=== PATIENT | female | born 1940 | race Caucasian/White ===

== ENCOUNTER → 2023-01-08 04:19 | Outpatient (CLI) | payer MEDICARE, SELFPAY ==
[2023-01-08 08:09] LABS: Adenovirus F 40/41, stool Not Detected (NotDetected); Astrovirus Not Detected (NotDetected); Campylobacter Not Detected (NotDetected); Cryptosporidium Not Detected (NotDetected); Cyclospora Cayetanesis Not Detected (NotDetected); Entamoeba histolytica Not Detected (NotDetected); Enteroaggregative E coli Not Detected (NotDetected); Enteropathogenic E coli Not Detected (NotDetected); Enterotoxigenic E coli Not Detected (NotDetected); Giardia lamblia Not Detected (NotDetected); Norovirus Not Detected (NotDetected); Plesimonas Shigalloides, PCR Not Detected (NotDetected); Rotavirus A Not Detected (NotDetected); Salmonella, PCR Not Detected (NotDetected); Sapovirus Not Detected (NotDetected); Shiga-like toxin E coli Not Detected (NotDetected); Shigella Enterovasive E coli Not Detected (NotDetected); Vibrio Cholerae Not Detected (NotDetected); Vibrio, PCR Not Detected (NotDetected); Yersinia Entercolitica, PCR Not Detected (NotDetected)
[2023-01-08 14:26] LABS: Clostridium Difficile A/B, PCR Detected (NotDetected)
== END ==
PROVIDERS: PCP Emergency Medicine; Visit Provider Emergency Medicine
DX: K59.1 Functional diarrhea (principal); A04.72 Enterocolitis due to Clostridium difficile, not specified as recurrent
CPT/HCPCS: 87506

== ENCOUNTER 2023-01-12 02:56 | Inpatient (IN) | payer MEDICARE, SELFPAY ==
[2023-01-12] VITALS (22 sets, daily range): BP systolic 105–152; BP diastolic 53–82; PULSE 76–103; RESP 14–24; TEMP 36.6–43; O2SAT 90–100; BMI 29.2; BMI 27.1
--- NOTE | 2023-01-12 | XR_ITS ---
PROCEDURE INFORMATION: Exam: XR Left Femur Exam date and time: 01/12/2023 12:00 AM Age: 82 years old Clinical indication: Device placement; Joint replacement hardware; Additional info: Lt femur in or TECHNIQUE: Imaging protocol: Radiologic exam of the left femur. Views: 2 views. COMPARISON: No relevant prior studies available. FINDINGS: Tubes, catheters and devices: ORIF of left intratrochanteric fracture with cannulated screw and locked IM nail of the left femur in place. Bones/joints: Unremarkable. No acute fracture. Soft tissues: Unremarkable. IMPRESSION: ORIF of left intratrochanteric fracture with cannulated screw and locked IM nail of the left femur in place.
--- NOTE | 2023-01-12 03:13 | XR_ITS ---
PROCEDURE INFORMATION: Exam: XR Chest Exam date and time: 01/12/2023 3:57 AM Age: 82 years old Clinical indication: Injury or trauma; Fall; Additional info: Fall from standing TECHNIQUE: Imaging protocol: Radiologic exam of the chest. Views: 1 view. COMPARISON: CT CHEST WO CON 01/12/2023 3:51 AM FINDINGS: Lungs: Well aerated with no evidence of consolidations, interstitial patterns or pulmonary nodules. Pleural spaces: No evidence of effusions or pneumothorax. Heart/Mediastinum: The cardiomediastinal silhouette is normal in size and configuration. There is no evidence of cardiomegaly. Bones/joints: Intact. IMPRESSION: No radiographic evidence of an acute pulmonary process.
--- NOTE | 2023-01-12 03:13 | XR_ITS ---
PROCEDURE INFORMATION: Exam: XR Left Hip Exam date and time: 01/12/2023 3:57 AM Age: 82 years old Clinical indication: Injury or trauma; Fall; Additional info: Fall from standing TECHNIQUE: Imaging protocol: Radiologic exam of the left hip. Views: 2 or 3 views hip with pelvis when performed. COMPARISON: CT ABDOMEN PELVIS WO CON 01/12/2023 3:54 AM FINDINGS: Bones/joints: Acute comminuted intertrochanteric fracture the left femur. No evidence of dislocation. Status post right total arthroplasty. The prosthetic elements are intact and anatomic alignment. Soft tissues: Unremarkable. IMPRESSION: 1. Acute comminuted intertrochanteric fracture the left femur. No evidence of dislocation. 2. Status post right total hip arthroplasty. The prosthetic elements are intact and anatomic alignment.
--- NOTE | 2023-01-12 03:18 | XR_ITS ---
PROCEDURE INFORMATION: Exam: XR Right Femur Exam date and time: 01/12/2023 3:57 AM Age: 82 years old Clinical indication: Injury or trauma; Fall; Additional info: Fall, pain TECHNIQUE: Imaging protocol: Radiologic exam of the right femur. Views: 2 views. COMPARISON: CT ABDOMEN PELVIS WO CON 01/12/2023 3:54 AM FINDINGS: Bones/joints: Status post right total arthroplasty. The prosthetic elements are intact and anatomic alignment. The knee joint is preserved. Soft tissues: Unremarkable. IMPRESSION: Status post right total hip arthroplasty. The prosthetic elements are intact and anatomic alignment.
--- NOTE | 2023-01-12 03:18 | CT_ITS ---
PROCEDURE INFORMATION: Exam: CT Abdomen And Pelvis Without Contrast Exam date and time: 01/12/2023 3:54 AM Age: 82 years old Clinical indication: Abdominal pain; Patient HX: Fall left hip pain; Additional info: Fall, back pain, hip pain, dementia TECHNIQUE: Imaging protocol: Computed tomography of the abdomen and pelvis without contrast. Radiation optimization: All CT scans at this facility use at least one of these dose optimization techniques: automated exposure control; mA and/or kV adjustment per patient size (includes targeted exams where dose is matched to clinical indication); or iterative reconstruction. REPORTING DATA: Count of CT and Cardiac NM exams in prior 12 months: This patient has received 0 known CTs and 0 known cardiac nuclear medicine studies in the 12 months prior to the current study. COMPARISON: CT CHEST WO CON 01/12/2023 3:51 AM FINDINGS: Lungs: Lung bases are free of consolidation effusions pneumothorax or pulmonary nodules. Liver: The liver is of normal size with no evidence of intrahepatic biliary dilatation or focal lesions. Gallbladder and bile ducts: There is no evidence of cholelithiasis gallbladder wall thickening or pericholecystic fluid. No ductal dilation identified. Pancreas: No focal lesions or inflammatory changes. No evidence of ductal dilatation, peripancreatic fluid or cystic collections identified. Spleen: Intact with no focal lesions. No splenomegaly. Adrenal glands: Normal. No mass. Kidneys and ureters: No focal lesions, hydronephrosis or nephrolithiasis. The ureters follow a normal course into the [place] bladder without dilatation calculi with displacement. Stomach and bowel: Air and stool noted scattered throughout nondilated bowel loops. Colonic diverticulosis There is no evidence of bowel wall thickening or inflammatory changes. Appendix: The appendix is visualized. No evidence of appendicitis. Intraperitoneal space: Unremarkable. No free air. No significant fluid collection. Vasculature: Unremarkable. No abdominal aortic aneurysm. Lymph nodes: Unremarkable. No enlarged lymph nodes. Urinary bladder: Unremarkable as visualized. Reproductive: Uterus unremarkable as visualized. 5.2 x 4 cm round soft tissue lesion right posterior adnexa. Bones/joints: Acute comminuted intertrochanteric fracture the left femur. No evidence of dislocation. Status post right total arthroplasty. The prosthetic elements are intact and anatomic alignment. Soft tissues: Unremarkable. IMPRESSION: 1. Acute comminuted intertrochanteric fracture the left femur. No evidence of dislocation. 2. 5.2 x 4 cm round soft tissue lesion right posterior pelvic adnexa.
--- NOTE | 2023-01-12 03:18 | XR_ITS ---
PROCEDURE INFORMATION: Exam: XR Left Femur Exam date and time: 01/12/2023 3:57 AM Age: 82 years old Clinical indication: Injury or trauma; Fall; Additional info: Pain TECHNIQUE: Imaging protocol: Radiologic exam of the left femur. Views: 2 views. COMPARISON: CT ABDOMEN PELVIS WO CON 01/12/2023 3:54 AM FINDINGS: Bones/joints: Acute comminuted intertrochanteric fracture the left femur. No evidence of dislocation. Severe loss of left knee joint space associated with subchondral sclerosis and osteophyte formation compatible with severe osteoarthritis. Soft tissues: Unremarkable. IMPRESSION: 1. Acute comminuted intertrochanteric fracture the left femur. No evidence of dislocation. 2. Severe loss of left knee joint space associated with subchondral sclerosis and osteophyte formation compatible with severe osteoarthritis.
--- NOTE | 2023-01-12 03:18 | CT_ITS ---
PROCEDURE INFORMATION: Exam: CT Chest Without Contrast; Diagnostic Exam date and time: 01/12/2023 3:51 AM Age: 82 years old Clinical indication: Injury or trauma; Fall; Additional info: Fall, back pain, hip pain, dementia TECHNIQUE: Imaging protocol: Diagnostic computed tomography of the chest without contrast. Radiation optimization: All CT scans at this facility use at least one of these dose optimization techniques: automated exposure control; mA and/or kV adjustment per patient size (includes targeted exams where dose is matched to clinical indication); or iterative reconstruction. REPORTING DATA: Count of CT and Cardiac NM exams in prior 12 months: This patient has received 0 known CTs and 0 known cardiac nuclear medicine studies in the 12 months prior to the current study. COMPARISON: CT THORACIC SPINE WO CON 01/12/2023 3:44 AM FINDINGS: Lungs: Patchy areas of ground-glass opacity. No consolidation. No masses. Pleural spaces: Unremarkable. No pneumothorax. No pleural effusion. Heart: Small pericardial effusion. No cardiomegaly. Coronary artery calcifications. Lymph nodes: Unremarkable. No enlarged lymph nodes. Vasculature: Unremarkable. No aortic aneurysm. Bones/joints: Unremarkable. No acute fracture. Soft tissues: Unremarkable. IMPRESSION: 1. Patchy areas of ground-glass opacity. No consolidation. 2. Small pericardial effusion.Coronary artery calcifications.
--- NOTE | 2023-01-12 03:19 | CT_ITS ---
PROCEDURE INFORMATION: Exam: CT Thoracic Spine Without Contrast Exam date and time: 01/12/2023 3:44 AM Age: 82 years old Clinical indication: Injury or trauma; Fall; Additional info: Fall, back pain, hip pain, dementia TECHNIQUE: Imaging protocol: Computed tomography of the thoracic spine without contrast. Radiation optimization: All CT scans at this facility use at least one of these dose optimization techniques: automated exposure control; mA and/or kV adjustment per patient size (includes targeted exams where dose is matched to clinical indication); or iterative reconstruction. REPORTING DATA: Count of CT and Cardiac NM exams in prior 12 months: This patient has received 0 known CTs and 0 known cardiac nuclear medicine studies in the 12 months prior to the current study. COMPARISON: CT CERVICAL SPINE WO CON 01/12/2023 3:42 AM FINDINGS: Bones/joints: No acute fracture. Normal alignment. No significant disc bulge or herniation. No severe spinal canal stenosis. No significant neural foraminal narrowing. Soft tissues: Unremarkable. IMPRESSION: No acute fractures or listhesis.
--- NOTE | 2023-01-12 03:19 | CT_ITS ---
PROCEDURE INFORMATION: Exam: CT Head Without Contrast Exam date and time: 01/12/2023 3:40 AM Age: 82 years old Clinical indication: Injury or trauma; Fall; Additional info: Fall, back pain, hip pain, dementia TECHNIQUE: Imaging protocol: Computed tomography of the head without contrast. Radiation optimization: All CT scans at this facility use at least one of these dose optimization techniques: automated exposure control; mA and/or kV adjustment per patient size (includes targeted exams where dose is matched to clinical indication); or iterative reconstruction. REPORTING DATA: Count of CT and Cardiac NM exams in prior 12 months: This patient has received 0 known CTs and 0 known cardiac nuclear medicine studies in the 12 months prior to the current study. COMPARISON: No relevant prior studies available. FINDINGS: Brain: Moderately advanced chronic microvascular ischemic disease without acute intraparenchymal hemorrhage and no obvious acute ischemic stroke. No intra-or extra-axial fluid collection, no supra-or infratentorial mass, no mass effect or midline shift. Cerebral ventricles: Ventriculomegaly with mildly dilated/prominent sulci and basal cisterns suspicious for chronic communicating/normal pressure hydrocephalus. Paranasal sinuses: No significant mucoperiosteal thickening in the visualized paranasal sinuses. Mastoid air cells: No mastoid effusion. Bones/joints: Visualized skull bones are grossly normal. Advanced chronic degenerative changes-internal derangement in the temporomandibular joints. Soft tissues: NA IMPRESSION: 1. Moderately advanced chronic microvascular disease and generalized atrophy without acute intracranial abnormality. 2. No evidence of acute hemorrhage, mass lesion or obvious acute ischemic infarction.
--- NOTE | 2023-01-12 03:19 | CT_ITS ---
PROCEDURE INFORMATION: Exam: CT Lumbar Spine Without Contrast Exam date and time: 01/12/2023 3:46 AM Age: 82 years old Clinical indication: Injury or trauma; Fall; Additional info: Fall, back pain, hip pain, dementia TECHNIQUE: Imaging protocol: Computed tomography of the lumbar spine without contrast. Radiation optimization: All CT scans at this facility use at least one of these dose optimization techniques: automated exposure control; mA and/or kV adjustment per patient size (includes targeted exams where dose is matched to clinical indication); or iterative reconstruction. REPORTING DATA: Count of CT and Cardiac NM exams in prior 12 months: This patient has received 0 known CTs and 0 known cardiac nuclear medicine studies in the 12 months prior to the current study. COMPARISON: CT THORACIC SPINE WO CON 01/12/2023 3:44 AM FINDINGS: Bones/joints: No acute fracture. Normal alignment. Severe disc desiccation at L4-L5 and L5-S1. No significant disc herniation. No severe spinal canal stenosis. No significant neural foraminal narrowing. Soft tissues: Unremarkable. IMPRESSION: 1. No acute fractures or listhesis. 2. Degenerative changes.
--- NOTE | 2023-01-12 03:19 | CT_ITS ---
PROCEDURE INFORMATION: Exam: CT Cervical Spine Without Contrast Exam date and time: 01/12/2023 3:42 AM Age: 82 years old Clinical indication: Injury or trauma; Fall; Additional info: Fall, back pain, hip pain, dementia TECHNIQUE: Imaging protocol: Computed tomography of the cervical spine without contrast. Radiation optimization: All CT scans at this facility use at least one of these dose optimization techniques: automated exposure control; mA and/or kV adjustment per patient size (includes targeted exams where dose is matched to clinical indication); or iterative reconstruction. REPORTING DATA: Count of CT and Cardiac NM exams in prior 12 months: This patient has received 0 known CTs and 0 known cardiac nuclear medicine studies in the 12 months prior to the current study. COMPARISON: CT HEAD/BRAIN WO CON 01/12/2023 3:40 AM FINDINGS: Bones/joints: Loss of normal curvature of the spine, alignment of the vertebral bodies is grossly normal. No evidence of acute compression fracture or deformity in the cervical spine. No acute fracture involving the vertebral bodies or their posterior elements. Facet joints are normally aligned without facetal dislocation or subluxation. No acute fracture of the dens, lateral C1-C2 articulation, atlantooccipital joints and central atlantodental joint are unremarkable. Discs/Spinal canal/Neural foramina: Moderately advanced chronic degenerative changes in the visualized cervical spine. Lungs: Scarring and pleural thickening in the lung apices. Soft tissues: Pre-and paravertebral soft tissues are grossly normal. Chronic degenerative changes-internal derangement in the temporomandibular joints. Atherosclerotic calcification of the carotid arteries and aortic arch. IMPRESSION: Chronic degenerative changes without an acute cervical spine injury or abnormality.
[2023-01-12 03:26] LABS: Basophils % 0.3 % (0.1-2.0); Eosinophils # 0.2 K/mm3 (0.0-0.4); Eosinophils % 2.4 % (0.1-12.0); Hemoglobin 11.5 g/dL (12.2-16.2); Lymphocytes # 3.1 K/mm3 (0.7-4.5); Mean Corpuscular Hemoglobin 29.1 pg (27.0-31.2); Mean Corpuscular Volume 93.9 fl (81-99); Monocytes # 0.5 K/mm3 (0.1-1.0); Monocytes % 5.1 % (1.7-9.3); Neutrophils # 5.7 K/mm3 (1.8-7.8); Neutrophils % 60.2 % (37.0-80.0); Platelet Count 360 K/mm3 (142-424); Red Blood Count 3.94 M/mm3 (4.20-5.40); Red Cell Distribution Width 16.2 % (11.5-17.5); White Blood Count 9.5 K/mm3 (4.8-10.8)
[2023-01-12 03:28] LABS: Chloride 104 mmol/L (98-107); Potassium 3.3 mmoL/L (3.5-5.1); Sodium 140 mmol/L (136-145)
[2023-01-12 03:30] LABS: Alanine Aminotransferase 20 U/L (12-78); Aspartate Amino Transferase 30 U/L (14-36); Blood Urea Nitrogen 15 mg/dl (7-17); Creatinine Clearance Estimated 50 mL/min (50-200); Estimated Glomerular Filt Rate 69 ml/min (>60); GFR (African American) 83 ML/MIN (>60)
--- NOTE | 2023-01-12 03:30 | PC.NURSE ---
patient is soiled. Removed clothes and turned and repositioned utilizing pillows and blankets.
[2023-01-12 03:31] LABS: Albumin/Globulin Ratio 1.1 (1.1-1.8); Alkaline Phosphatase 99 U/L (38-126); Anion Gap 12.3 mEq/L (5-15); Bilirubin,Total 0.6 mg/dl (0.2-1.3); Calcium 9.5 mg/dl (8.4-10.2); Carbon Dioxide 27 mmol/L (22.0-30.0); Globulin 3.7 g/dL (1.3-3.2); Glucose 114 mg/dl (74-100); Total Protein,Serum 7.7 g/dl (6.3-8.2)
--- NOTE | 2023-01-12 03:41 | HMH.EDGENADL ---
Discharge Plan Disposition Chief Complaint: Fall Prescriptions Prescriptions: No Action alprazolam [Xanax] 0.5 mg tablet 0.5 mg PO BID PRN (Reason: anxiety) 90 Days Qty: 180 0RF Referrals Follow up/Referrals: Dominic Gilbert MD [Primary Care Provider] - See instructions Clinical Impressions Clinical Impression: C. difficile diarrhea, UTI (urinary tract infection), Dementia Closed intertrochanteric fracture Qualifiers: Encounter type: initial encounter Fracture alignment: nondisplaced Laterality: left Qualified Code(s): S72.145A - Nondisplaced intertrochanteric fracture of left femur, initial encounter for closed fracture Discharge ED Provider: Salvatore Cleary General Adult HPI General Chief complaint: Fall Stated complaint: FALL Time Seen by Provider: 01/12/23 03:01 Mode of Arrival: EMS Source of Information: Patient Limitations: No Limitations Description of Symptoms (Recalled from ER Triage Doc. by RN): 82 yo female fall [facility] in prison. left hip pain complaints.vss. a&ox1 at baseline. History of Present Illness HPI narrative: 83-year-old female history of Alzheimer's dementia presents after unwitnessed fall at nursing facility. Circumstances of fall are unclear. Patient reports multiple different things. She is currently being treated for UTI and C. difficile at the nursing facility. She reports back pain and hip pain, denies hitting her head, denies loss of consciousness. Patient is alert and interactive and partially oriented. Unable to provide significant medical history or history of presenting events. Related Data Previous Rx's Medication Instructions Recorded alprazolam 0.5 mg tablet (Xanax) 0.5 mg PO BID PRN anxiety 90 days 01/06/23 #180 tabs Allergies Allergy/AdvReac Type Severity Reaction Status Date / Time Opioids - Morphine Analogues Allergy Severe Angioedema Verified 01/08/23 23:29 [facility] Disclaimer: The information contained in this section may have been updated after the patient was seen, as this information can be updated by other users. Social History (Updated 01/08/23 @ 22:54 by Ren Chiang APRN) Smoking Status: Unknown if ever smoked alcohol intake: former current occupational status: retired Travel in the last 8 weeks: None household members: family housing: house marital status: education level: high school Hx Recent Travel: No sexually active: No ROS Obtained: Yes All systems reviewed & no additional complaints except as documented Physical Exam General General appearance: alert and in no apparent distress Head Head exam: atraumatic and normocephalic Eye Eye exam: Present normal appearance, PERRL and EOMI ENT ENT exam: Present normal oropharynx and normal external ear exam Neck Neck exam: Present normal inspection and full ROM Chest Chest inspection: Present normal inspection and symmetric chest wall rise; Absent tenderness Respiratory Respiratory exam: Present normal lung sounds bilaterally; Absent respiratory distress Cardiovascular Cardiovascular exam: Present regular rate and normal rhythm Abdominal Exam Abdominal exam: Present soft; Absent distention, tenderness or guarding Extremities Exam Extremities exam: Present other (Pelvic tenderness, tenderness to the left hip and thigh, bilateral upper extremities atraumatic.); Absent edema or joint swelling Back Exam Back exam: Present normal inspection and tenderness (Thoracic/lumbar. C-spine nontender.) Neurological Exam Neurological exam: Present alert and other (Oriented x1, reportedly baseline); Absent motor sensory deficit Psychiatric Psychiatric exam: Present normal affect and normal mood Skin Skin exam: Present warm, dry and normal color Lymphatic Lymphatic Findings: no adenopathy Medical Decision Making Medical Records Medical records reviewed: Yes I reviewed the patient's medical records. Aman Inquiry Pt receiving controlled substance: No Aman garcia
--- NOTE | 2023-01-12 04:30 | PC.NURSE ---
turned and repositioned per staff, elevated injured leg slightly on a pillow for comfort. pt tolerated well. perianal care provided.
--- NOTE | 2023-01-12 05:45 | PC.NURSE ---
waiting on ortho to come oncall in order to contact re: staying as an inpatient. properties supervisor is aware of plan.
--- NOTE | 2023-01-12 06:33 | PC.NURSE ---
patient resting comfortably at this time with eyes closed. resp r/u. vss. no complaints offered.
[2023-01-12 08:11] LABS: Microscopic, Urine URINE MICROSCOPIC (MICROSCOPIC)
[2023-01-12 08:14] LABS: Appearance,Urine SL CLOUDY (Clear); Bilirubin,Urine Negative (Negative); Blood, Urine 2+ (Negative); Color,Urine YELLOW (Yellow); Glucose,Urine (UA) Negative (Negative); Ketones,Urine Negative (Negative); Leukocyte Esterase,Urine 2+ (Negative); Nitrate,Urine POSITIVE (Negative); PH,Urine 5.5 (5.0-8.5); Protein,Urine 1+ (Negative); Urobilinogen,Urine 0.2 EU/dl (0.2)
[2023-01-12 08:32] LABS: Bacteria,Urine 1+ /lpf; Squamous Epithelial Cell,Urine Occasional #/hpf (0-5)
--- NOTE | 2023-01-12 08:32 | PC.NURSE ---
report called to elina bustillos
--- NOTE | 2023-01-12 09:12 | P.CONPHA_ITS ---
Pharmacy Intervention Comments: Patient's home medications were verified using list from patient's half-way. -Jose Manrique, PharmD student
--- NOTE | 2023-01-12 09:12 | HMH.PHAINT1 ---
Pharmacy Intervention Comments: Patient's home medications were verified using list from [facility]. -Jose Manrique, PharmD student
--- NOTE | 2023-01-12 12:10 | PC.NURSE ---
courtesy tech note: pt is lying in bed resting. call light is within reach and bed alarm is set.
--- NOTE | 2023-01-12 13:28 | EXP.HP ---
History of Present Illness *Admission Date: 01/12/23 *Reason for visit:: fall *History of present illness: Ms. Wisdom is an 82-year-old female who lives in a long-term. She fell at her long-term this morning while ambulating with her walker. Had pain when they tried to get her up. Was brought to the ER for further evaluation. Denies any loss of consciousness, chest pain, shortness of breath, nausea or vomiting. Is currently being treated for a UTI and C. difficile. On evaluation in the ER, patient found to have a comminuted left intertrochanteric fracture. Orthopedics was consulted. Patient admitted for further management and likely surgical intervention this afternoon. On arrival to the floor, patient is hemodynamically stable. Afebrile. On room air. States she has pain in her hip and wants to be able to walk again. She is interested in proceeding with surgery. She does have a history of pulm and. Is on occasion for hypertension. No history of kidney disease or diabetes. Metabolic equivalents are difficult to quantify due to patient's mobility with a walker. She has been on oral vancomycin for C. difficile infection for 3 days and oral antibiotics for UTI for [address] [facility] Disclaimer: The information contained in this section may have been updated after the patient was seen, as this information can be updated by other users. Medical History (Updated 01/12/23 @ 13:44 by Antonino Parnell MD) No significant past medical history Surgical History (Updated 01/12/23 @ 13:43 by Antonino Parnell MD) History of right hip replacement History of total right hip replacement Social History Smoking Status: Unknown if ever smoked alcohol intake: former current occupational status: retired Travel in the last 8 weeks: None household members: family housing: house marital status: education level: high school Hx Recent Travel: No sexually active: No Meds Home Medications and Allergies Home Medications Medication Instructions Recorded Confirmed Type alprazolam 0.5 mg tablet (Xanax) 0.5 mg PO BID PRN anxiety 90 days 01/06/23 01/12/23 Rx #180 tabs Lactobacil.acidophilus-Bifido.animalis 1 cap PO DAILY probiotic 01/12/23 01/12/23 History 5 billion cell sprinkle capsule (Probiotic) acetaminophen 500 mg tablet 500 mg PO Q6H PRN Pain 01/12/23 01/12/23 History amoxicillin 500 mg-potassium 1 tab PO BID infection 01/12/23 01/12/23 History clavulanate 125 mg tablet (Augmentin) calcium carbonate 500 mg calcium 500 mg PO DAILY Supplement 01/12/23 01/12/23 History (1,250 mg) tablet ondansetron HCl 4 mg tablet 4 mg PO Q6H PRN Nausea 01/12/23 01/12/23 History quetiapine 50 mg tablet (Seroquel) 150 mg PO HS dementia 01/12/23 01/12/23 History sennosides 8.6 mg tablet (senna) 8.6 mg PO DAILY PRN Constipation 01/12/23 01/12/23 History vancomycin 125 mg/2.5 mL oral 125 mg PO QID C. Diff 01/12/23 01/12/23 History syringe (FOR ORAL USE ONLY) venlafaxine 37.5 mg tablet 37.5 mg PO DAILY Depression 01/12/23 01/12/23 History New Prescriptions to Start Prescriptions: Allergies Allergy/AdvReac Type Severity Reaction Status Date / Time Opioids - Morphine Analogues Allergy Severe Angioedema Verified 01/08/23 23:29 Exam Data for Last 24 hours Vital signs and Labs for Last 24 Hours: Temp Pulse Resp BP Pulse Ox O2 Del Method 98.3 F 81 17 116/69 95 Room Air 01/12/23 08:59 01/12/23 08:59 01/12/23 08:59 01/12/23 08:59 01/12/23 08:59 01/12/23 13:00 Laboratory Results - last 24 hr 01/12/23 03:15: WBC 9.5, RBC 3.94 L, Hgb 11.5 L, Hct 37.0, MCV 93.9, MCH 29.1, MCHC 31.0 L, RDW 16.2, Plt Count 360, MPV 8.0, Neut % (Auto) 60.2, Lymph % (Auto) 32.0, [place] % (Auto) 5.1, Eos % (Auto) 2.4, Baso % (Auto) 0.3, Neut # (Auto) 5.7, Lymph # (Auto) 3.1, [place] # (Auto) 0.5, Eos # (Auto) 0.2, Baso # (Auto) 0.0, Sodium 140, Potassium 3.3 L
--- NOTE | 2023-01-12 13:57 | ECG_ITS ---
APPROVED REPORT Exam: Resting ECG HR:73 bpm ECG Measurements Heart Rate 73 AXES UT 146 P 65 QRSd 87 QRS 11 QT 444 T 46 QTc 469 Conclusion SINUS RHYTHM Normal ECG UNCONFIRMED REPORT Electronically signed by : Nima Bright MD 01/12/2023 19:48:42
--- NOTE | 2023-01-12 16:51 | PC.NURSE ---
pt very pleasant, alert to self only. pt c/o pain once but pt stated only when i move . treated pain per mar. son was at bedside around noon, stated he would like to speak with the surgeon. casey in place draining properly. yusuf watkins, npo at this time. pt has no needs at this time.
--- NOTE | 2023-01-12 17:31 | P.PNANES_ITS ---
[facility] Disclaimer: The information contained in this section may have been updated after the patient was seen, as this information can be updated by other users. Medical History (Updated 01/12/23 @ 13:44 by Antonino Parnell MD) No significant past medical history Surgical History (Updated 01/12/23 @ 13:43 by Antonino Parnell MD) History of right hip replacement History of total right hip replacement Social History Smoking Status: Unknown if ever smoked alcohol intake: former substance use type: denies use current occupational status: retired Travel in the last 8 weeks: None household members: family housing: house marital status: education level: high school Hx Recent Travel: No sexually active: No [facility] Anesthesia Checklist Patient Identification Patient Identification: Arm Band and Family Structural Data Admitted From: Inpatient Planned Operative Procedure/s: Left Hip Nailing Consent for Planned Operative Procedure(s) Verified: Yes Verified Documents: Surgical Consent and History and Physical NPO Status Verified Time NPO: 00:00 Additional verifications Patient : No Anesthesia Reactions: No Hx Blood Transfusions: No Blood Transfusion Reaction: No Cephalosporin Allergy: No Previous Colonoscopy: Yes Airway Assessment C-Spine Mobility Assessed: No TMJ Mobility Assessed: No Dentition: Partials Neurological Assessment Level of Consciousness: Awake and Disoriented Hx Seizures: No Numbness or tingling in extremities: No Anesthesia Plan Anesthesia Risk discussed: Yes ASA Class: III Anesthesia Type: General Preoperative Comments Pre-Operative Comments: Disoriented for around 10 years. custodial patient. Treated for CDF, and UTI. Angioedema with Oxycodone...tongue swollen. History of acid Reflux.
--- NOTE | 2023-01-12 18:50 | PC.NURSE ---
pt to surgery
--- NOTE | 2023-01-12 19:03 | EXP.ORTH.CON ---
History of Present Illness *Admission Date: 01/12/23 *History of present illness: Ms. Wisdom is an 82-year-old female who lives in a longterm. She fell at her longterm this morning while ambulating with her walker. Had pain when they tried to get her up. Was brought to the ER for further evaluation. Denies any loss of consciousness, chest pain, shortness of breath, nausea or vomiting. Is currently being treated for a UTI and C. difficile. On evaluation in the ER, patient found to have a comminuted left intertrochanteric fracture. Orthopedics was consulted. Patient admitted for further management and likely surgical intervention this afternoon. [facility] Disclaimer: The information contained in this section may have been updated after the patient was seen, as this information can be updated by other users. Medical History (Updated 01/12/23 @ 13:44 by Antonino Parnell MD) No significant past medical history Surgical History (Updated 01/12/23 @ 13:43 by Antonino Parnell MD) History of right hip replacement History of total right hip replacement Social History (Updated 01/12/23 @ 17:39 by sayra franklin CRNA) Smoking Status: Unknown if ever smoked alcohol intake: former substance use type: denies use current occupational status: retired Travel in the last 8 weeks: None household members: family housing: house marital status: education level: high school Hx Recent Travel: No sexually active: No Review of Systems Review of Systems Review of systems:: unable to obtain Constitutional Constitutional: Reports system reviewed and no additional complaints, except as documented Eyes Eyes: Reports system reviewed and no additional complaints, except as documented ENT Ears, Nose, Mouth, and Throat: Reports system reviewed and no additional complaints, except as documented *Cardiovascular Cardiovascular: Reports system reviewed and no additional complaints, except as documented *Respiratory Respiratory: Reports system reviewed and no additional complaints, except as documented *Gastrointestinal Gastrointestinal: Reports system reviewed and no additional complaints, except as documented *Genitourinary Genitourinary: Reports system reviewed and no additional complaints, except as documented *Musculoskeletal Musculoskeletal: Reports arthralgias Integumentary/Breasts Skin/Breast: Reports system reviewed and no additional complaints, except as documented *Neurologic Neurologic: Reports system reviewed and no additional complaints, except as documented Psychiatric Psychiatric: Reports system reviewed and no additional complaints, except as documented Endocrine Endocrine: Reports system reviewed and no additional complaints, except as documented Hematologic/Lymphatic Hematologic/Lymphatic: Reports system reviewed and no additional complaints, except as documented Allergic/Immunologic Allergic/Immunologic: Reports system reviewed and no additional complaints, except as documented Meds Home Medications and Allergies Home Medications Medication Instructions Recorded Confirmed Type alprazolam 0.5 mg tablet (Xanax) 0.5 mg PO BID PRN anxiety 90 days 01/06/23 01/12/23 Rx #180 tabs Lactobacil.acidophilus-Bifido.animalis 1 cap PO DAILY probiotic 01/12/23 01/12/23 History 5 billion cell sprinkle capsule (Probiotic) acetaminophen 500 mg tablet 500 mg PO Q6H PRN Pain 01/12/23 01/12/23 History amoxicillin 500 mg-potassium 1 tab PO BID infection 01/12/23 01/12/23 History clavulanate 125 mg tablet (Augmentin) calcium carbonate 500 mg calcium 500 mg PO DAILY Supplement 01/12/23 01/12/23 History (1,250 mg) tablet ondansetron HCl 4 mg tablet 4 mg PO Q6H PRN Nausea 01/12/23 01/12/23 History quetiapine 50 mg tablet (Seroquel) 150 mg PO HS dementia 01/12/23 01/12/23 History sennosides 8.6 mg tablet (senna) 8.6 mg PO DAILY PRN Constipation 01/12/23 01/12/23 History vancomycin 125 mg/2.5 mL oral 125 mg
--- NOTE | 2023-01-12 19:54 | SUR.OPER ---
LATE ENTRY: Spoke to Tarik from nightwatch regarding TXA intraop dose. pt can have 1 gm of TXA IVP over 10 min and it can be repeated in 3 hours. 1gm of TXA pulled, verified and carried out w/ MARIA DEL ROSARIO Lee
--- NOTE | 2023-01-12 20:47 | EXP.OP.NOTE ---
Date of procedure: 01/12/23 Pre-op Diagnosis:: left intertrochanteric femur fracture Post-op Diagnosis:: same Procedure performed:: 72807: Cephalomedullary nail fixation right left intertrochanteric femur fracture Surgeon:: Curtis Alva JR, MD Anesthesia: CINDYA Estimated blood loss (mL): 100 Clinical Note:: 82-year-old left intertrochanteric fracture. She is being treated for UTI and C. difficile infection. She has baseline dementia. I had a discussion with she and her family regarding further management. After discussion of risk, benefits, alternatives, they wish to proceed with cephalomedullary solution left intertrochanteric femur fracture. We discussed the risk and benefits of surgery. Risks included but were not limited to pain, bleeding, infection, damage to adjacent structures, need for further surgery, wound healing complications, loss of limb, . Patient expressed verbal consent and written consent was obtained for the above procedure. Operative findings:: Appropriate length, alignment, rotation of the fracture. Safe intraosseous hardware placement active apex distance less than 20 mm Operative note:: Patient was identified in preoperative holding. Operative site was marked in indelible ink. History, physical, consent were reviewed and updated. Patient was surrendered to the anesthesia team, taken to the operative suite. The patient was secured onto the fracture table with a belt and tape across the arms and upper chest area. Anesthesia was induced. A perineal post had been placed. The operative extremity was secured down and longitudinal traction applied through the post. The contralateral extremity was secured with pillow and jeremias wrap to arm. C-arm fluoroscopy was then brought in to check fracture alignment, and it was found to be acceptable on AP and lateral views. The operative extremity was prepped and draped in the usual sterile fashion. The operative team donned sterile gowns and gloves and a timeout was called. All in attendance agreed regarding the patient's identity, procedure, operative site. Weight-based dose of antibiotics was given prior to incision. A stab wound incision was made proximal to the tip of the greater trochanter and a Steinmann pin placed on the tip of the greater trochanter, localizing it on AP and lateral views to be in the center. This was placed down into the femur to the level of the lesser trochanter. The knife was used to enlarge the opening proximally and a guide placed over the pin down to the tip of the greater trochanter. The drill was used through the guide to open the greater trochanter. A ball-tipped guidewire was placed in the canal was reamed to appropriate diameter. The cephalomedullary nail was advanced over the guidewire to appropriate position. The placement was checked on AP and lateral views. The triple sleeve cannula was then placed through the guide connected onto the insertion handle. This was placed against the skin and then an incision made through the skin and fascia down onto bone. The cannula was then placed down until it was flush on the bone. The guide pin was drilled up into the center of the femoral head on AP and lateral views. The inner sleeve was then removed, and the length of the blade was measured. Step reamer was advanced to appropriate depth over the wire. A 10.5 mm lag screw of appropriate length was placed with tip apex distance less than 20 mm. I then compressed via maritime engineer instructions. Attention was then turned proximally, and the flexible screwdriver was used to tighten down the proximal screw to the lag screw. The distal screws and cannulas were then placed through the targeting device and a small incision made through the skin and fascia allowing it to be placed flush against bone. Drill was used to drill through both cortices. An interlocking bolt of appropriate length was placed after drilling. A second was placed in a similar manner. Orthogonal
--- NOTE | 2023-01-12 21:00 | XR_ITS ---
PROCEDURE INFORMATION: Exam: XR Left Hip Exam date and time: 01/12/2023 9:58 PM Age: 82 years old Clinical indication: Screening exam; Post op; Additional info: Postop, 2 view left hip TECHNIQUE: Imaging protocol: Radiologic exam of the left hip. Views: 2 or 3 views hip with pelvis when performed. COMPARISON: CR XR HIP LT 2-3V W/PELVIS 01/12/2023 3:57 AM FINDINGS: Tubes, catheters and devices: Prosthetic right hip is in expected position. Alvarez catheter is in place. Bones/joints: There is been interval reconstruction of the left femoral neck with transcervical an intramedullary rods in anatomic alignment and position. Overall subjective bony demineralization. Soft tissues: Expected regional soft tissue distortion is noted. IMPRESSION: Interval reconstruction of the left proximal femur in anatomic alignment and position.
--- NOTE | 2023-01-12 21:02 | EXP.ANES.I ---
[facility] Anesthesia Record Part I Anesthesia Record I Intake, IV Amount: 700 Estimated blood loss (mL): 100 Urine output (mL): 100 Blood Pressure: 137/61 SaO2: 93 Pulse Rate: 101 Respiratory Rate: 20 Temperature: 97.9 F Patient is:: Drowsy and Stable Stable to PACU at:: 20:25
--- NOTE | 2023-01-12 21:28 | PC.NURSE ---
pt arrived on floor after surgery @ 2124
[2023-01-13] VITALS (8 sets, daily range): BP systolic 94–139; BP diastolic 54–87; PULSE 63–134; RESP 16–18; TEMP 36.3–36.9; O2SAT 91–93; BMI 27.0
--- NOTE | 2023-01-13 00:23 | ECG_ITS ---
APPROVED REPORT Exam: Resting ECG Wt:0 lbs HR:124 bpm ECG Measurements Heart Rate 124 AXES UT 123 P 33 QRSd 86 QRS 0 QT 327 T 91 QTc 401 Critical Notification Critical Value: No Conclusion SINUS TACHYCARDIA, POSSIBLE ANTERIOR MYOCARDIAL INFARCT, OLD ABNORMAL RHYTHM ECG UNCONFIRMED REPORT Electronically signed by : Brii Young, 01/16/2023 09:32:30
--- NOTE | 2023-01-13 04:29 | PC.NURSE ---
Patient came back from surgery at 2129. Patient has not complained of pain. RN asked patient multiple times. Patient did have an episode of tachycardia. SHOT PEENING OPERATOR on nights made aware. Tachycardia has since resolved and patient is back to baseline of 80-90s HR. Alvarez cath remains in place. Patient is alert to self which is baseline. no other issues noted. dressing still remains clean dry and intact
--- NOTE | 2023-01-13 07:31 | EXP.PN ---
Subjective *Date: 01/13/23 *Time: 17:04 Interval history: The patient pulled out her IV and has been refusing medications. Exam Data for Last 24 hours Vital signs and Labs for Last 24 Hours: Temp Pulse Resp BP Pulse Ox O2 Del Method O2 Flow Rate 97.6 F 90 18 94/54 L 93 L Room Air 2 01/13/23 00:15 01/13/23 03:45 01/13/23 03:45 01/13/23 03:45 01/13/23 03:45 01/13/23 06:51 01/12/23 20:55 Laboratory Results - last 24 hr 01/12/23 08:06: Urine Color Yellow, Urine Appearance Sl cloudy, Urine pH 5.5, Ur Specific [place] 1.020, Urine Protein 1+, Urine Glucose (UA) Negative, Urine Ketones Negative, Urine Blood 2+, Urine Nitrate Positive, Urine Bilirubin Negative, Urine Urobilinogen 0.2, Ur Leukocyte Esterase 2+ A, Urine RBC 10-20, Urine WBC 10-20, Ur Squamous Epith Cells Occasional, Urine Bacteria 1+ I & O for Last 24 hours: Intake & Output 01/10/23 01/11/23 01/12/23 01/13/23 23:59 23:59 23:59 23:59 Intake Total 700 / 700 0 / 0 Output Total 150 / 150 250 / 250 Balance 550 / 550 -250 / -250 Weight 71.753 kg 71.753 kg Constitutional Constitutional: no acute distress *Routine HEENT Exam Head: Present normocephalic Eye: Present EOMI and PERRL ENT: Present mucous membranes moist *Routine Neck Exam Neck: Present supple; Absent lymphadenopathy *Routine Respiratory Exam Respiratory: Present CTA bilaterally *Routine Cardiovascular Exam Cardiovascular: Present RRR *Routine Abdominal Exam Abdominal: Present soft and normoactive bowel sounds; Absent tenderness *Routine Skin Exam Skin: Present warm; Absent rash *Routine Neurological Exam Neurological: Present alert Assessment and Plan *Assessment and plan (1) Closed intertrochanteric fracture: Status: Acute Qualifiers: Encounter type: initial encounter Fracture alignment: nondisplaced Laterality: left Qualified Code(s): S72.145A - Nondisplaced intertrochanteric fracture of left femur, initial encounter for closed fracture Category: Medical Code(s): S72.143A - Displaced intertrochanteric fracture of unspecified femur, initial encounter for closed fracture (2) C. difficile diarrhea: Status: Acute Category: Medical Code(s): A04.72 - Enterocolitis due to Clostridium difficile, not specified as recurrent (3) UTI (urinary tract infection): Status: Acute Qualifiers: Urinary tract infection type: acute cystitis Category: Medical Code(s): N39.0 - Urinary tract infection, site not specified (4) Dementia: Status: Acute Category: Medical Code(s): F03.90 - Unspecified dementia, unspecified severity, without behavioral disturbance, psychotic disturbance, mood disturbance, and anxiety (5) Anxiety: Status: Acute Category: Medical Code(s): F41.9 - Anxiety disorder, unspecified Plan Faby Wisdom is an 82 year old female with a past medical history of hypertension, dementia recent diagnoses of UTI and c. diff colitis who presented from a [facility] after a mechanical ground level fall while ambulating with her walker. She was found to have a comminuted left intertrochanteric fracture. On the day of admission the patient had a cephalomedullary nail fixation of the left hip and the procedure was without any apparent complication. #left comminuted intertrochanteric fracture #c. difficile colitis #UTI #anemia #anxiety #dementia Rivaroxaban 10mg QPM per Orthopedic Surgery Continue treating pain as needed For her UTI, continue Rocephin (01/12-present); she received a day of Augmentin 01/11. For her C diff colitis, continue PO vancomycin (01/10-present) Hgb is 9.1 today, down from 11.5. Will trend. PT/OT She may need to discharge to [place] for [facility], PT and OT. DNR
--- NOTE | 2023-01-13 07:41 | EXP.ANES.II ---
[facility] Anesthesia Record Part II Anesthesia Record Part II Discharge Time: 21:25 Destination: Medical Surgical Department PACU nurse assessment reviewed?: Yes Patient Condition:: Good Anesthesia Complications:: None Swallowing reflex intact?: Yes Cyanosis?: No Blood Pressure: 139/76 Pulse Rate: 99 Temperature: 97.9 F Mental Status: Alert & Oriented Pain level:: 0 Nausea and/or vomitting:: None Intake, IV Amount: 0
--- NOTE | 2023-01-13 08:26 | PC.NURSE ---
late entry: techs were unable to obtain pts v/s due to pt being confused/combative. pt currently resting well. bed alarm on for pt safety.
--- NOTE | 2023-01-13 08:49 | CARE MANAGER ---
Addendum entered by Patrica Medina 01/15/23 08:44: Patient will discharge to [facility] SN[facility] level of care today: I have updated [facility] thomas/ Myah. Addendum entered by Patrica Medina 01/14/23 11:26: I have updated [facility] thomas/ Myah Barrera that patient could possibly return today. Addendum entered by Magalis Veronica RN 01/14/23 10:01: Patient's insurance changed to traditional Medicare on 01/13/23 and she will not require authorization. [facility] said yesterday they are ready to accept today. Original Note: Patient resides at [facility] as private pay. She will go back skilled. Once therapy evaluations are complete will send to [facility] so they can start authorization. MARIANGEL Newman
--- NOTE | 2023-01-13 10:18 | PC.NURSE ---
pt pulled out iv. pt yelling at staff to get out of her house . pt ref to take morning meds. pt attempting to hit therapy staff. pt resting in bed with eyes closed and talking. bed alarm on for pt safety, jacinto in place at this time.
--- NOTE | 2023-01-13 10:57 | HMH.OTEV ---
OT Inpatient Evaluation Rehab OT IP Evaluation Start: 01/12/23 18:37 Freq: ONCE Status: Active Protocol: Document 01/13/23 10:50 [facility] (Rec[facility] 01/13/23 10:57 [id number] Rehab OT IP Assessment Subjective History Pt oriented x 2 on arrival. Pt was more confused and combative earlier this morning when therapist attempted to see patient. Pt still unaware of injury and surgical operation. Pt unable to provide information about prior level of functioning. Ms. Wisdom is an 82-year-old female who lives in a care home. She fell at her care home while ambulating with her walker resulting in a left hip fx on 01/12/23. Pt required a Cephalomedullary nail fixation left intertrochanteric femur fracture on 01/12/23. Subjective You need to get out of my home. Objective Patient Orientation Person,Birthday Upper Extremity Gross ROM WFL Bed Mobility bed mobility-scooting,bed mobility - supine/sit,bed mobility - rolling Assist Level Maximum x 2 (75% assist) Rehab OT IP prob,goals,plan Problems Date of Evaluation: 01/13/23 OT IP Problems Bed Mobility,Transfers,Balance ,Self care,Safety Rehab Potential Rehab Potential Good Equipment Needs Assistive Devices Rolling / Wheeled Walker Plan OT intervention Plan Bed Mobility,Transfers,Balance ,Self care,Safety,Therapeutic Exercise OT Plan Frequency BID Duration LOS Discharge Goals Bed Mobility Ability Assistance x1 Sit to Stand Chair Transfer Ability Moderate x 2 (50% assist) Chair Transfer Ability Moderate x 2 (50% assist) Chair Transfer Technique Stand Pivot Chair Transfer Assistive Devices Rolling Walker Lower Body Dressing Ability Assistance X1 Upper Body Dressing Ability Assistance X1 Performing Toilet Hygiene Ability Assistance X1 Overall Commode/Toilet Transfer Ability Assistance x1 Commode/Toilet Transfer Technique Sit to/from Ambulatory decrease in endurance No Discharge Plan OT Discharge Plan
--- NOTE | 2023-01-13 11:08 | HMH.PTEV ---
Physical Therapy Evaluation Rehab PT IP Evaluation Start: 01/12/23 18:37 Freq: ONCE Status: Active Protocol: Document 01/13/23 11:00 [facility] (Rec: 01/13/23 11:07 [facility] [id number]) Subjective/History History History 82 yowf adm to [facility] fr[facility] SNF after ground level fall with resulting L hip fx now S/P L femur IMN. Pt was being treated for UTI and C-diff prior to adm. She is currently very confused, and oriented to person only. Subjective Subjective Pt c/o pain all over with any movement. Rehab PT IP Eval Objective Appearance Patient Behavior Restless,Wandering,Confused Patient Orientation Person Difficulty following instructions moderate Speech Pattern Clear Ambulation Patient Able to Ambulate No Balance Ability to Arise Unable Sitting Balance Leans or slides in chair Dynamic Sitting Balance Ability Poor Transfers Bed Transfer Ability Total/Dependent (100%) Rehab PT IP prob,goals,plan Problems Date of Evaluation: 01/13/23 PT IP Problems Bed Mobility,Transfers,Gait Rehab Potential Rehab Potential Fair Plan PT Intervention Plan Bed Mobility,Transfers,Gait, Therapeutic Exercise PT Plan Frequency BID Duration LOS Discharge Goals Bed Transfer Ability Maximum x 1 (75% assist) Sit to Stand Chair Transfer Ability Maximum x 2 (75% assist) Discharge Plan PT Discharge Plan Pt is currently most appropriate for rehab placement once medically stable for d/c. If she does not receive skilled intervention she will be at severe risk for injury, debility, wounds, falls or . G -code Required No Eval Complexity Eval Charge Codes 28117 - High Complexity PHYSICIAN CERTIFICATION: I certify the specified therapy services for Faby Wisdom are required, authorized, and reviewed every 30 days.
[2023-01-13 11:37] LABS: Basophils % 0.2 % (0.1-2.0); Eosinophils # 0.1 K/mm3 (0.0-0.4); Eosinophils % 1.2 % (0.1-12.0); Hematocrit 29.8 % (37.0-47.0); Hemoglobin 9.1 g/dL (12.2-16.2); Lymphocytes # 1.3 K/mm3 (0.7-4.5); Lymphocytes % 13.9 % (10-50); Mean Corpuscular HGB Conc 30.7 g/dL (31.8-35.4); Mean Corpuscular Hemoglobin 28.5 pg (27.0-31.2); Mean Corpuscular Volume 92.8 fl (81-99); Mean Platelet Volume 7.7 fl (7.4-10.4); Monocytes # 0.3 K/mm3 (0.1-1.0); Monocytes % 3.7 % (1.7-9.3); Neutrophils # 7.5 K/mm3 (1.8-7.8); Platelet Count 336 K/mm3 (142-424); Red Blood Count 3.21 M/mm3 (4.20-5.40); Red Cell Distribution Width 16.1 % (11.5-17.5); White Blood Count 9.2 K/mm3 (4.8-10.8)
[2023-01-13 11:47] LABS: Alanine Aminotransferase 17 U/L (12-78); Albumin Level 3.1 g/dl (3.5-5.0); Alkaline Phosphatase 82 U/L (38-126); Aspartate Amino Transferase 30 U/L (14-36); Bilirubin,Total 0.2 mg/dl (0.2-1.3); Blood Urea Nitrogen 18 mg/dl (7-17); Calcium 8.4 mg/dl (8.4-10.2); Carbon Dioxide 27 mmol/L (22.0-30.0); Chloride 106 mmol/L (98-107); Creatinine Clearance Estimated 48 mL/min (50-200); Estimated Glomerular Filt Rate 80 ml/min (>60); GFR (African American) 97 ML/MIN (>60); Globulin 3.1 g/dL (1.3-3.2); Glucose 110 mg/dl (74-100); Magnesium 1.9 mg/dl (1.6-2.3); Sodium 140 mmol/L (136-145); Total Protein,Serum 6.2 g/dl (6.3-8.2)
--- NOTE | 2023-01-13 18:16 | PC.NURSE ---
pt has done very well since noon. no other behaviors noted. pt has c/o twice, treated per aug. new, 20g iv in lt ac. casey removed at 1130. pt has been resting the last few hrs. scuds removed due to agitating pt. cb within reach, bed alarm on for pt safety. no concerns or needs at this time.
--- NOTE | 2023-01-13 22:04 | PC.NURSE ---
Bladder scanned patient due to not voiding, Largest amount scanned was 161ml
[2023-01-14] VITALS: BP 102/60; PULSE 97; RESP 18; TEMP 36.6; O2SAT 95
[2023-01-14 04:00] VITALS: BP 132/60; PULSE 85; RESP 18; TEMP 36.7; O2SAT 93; BMI 28.3
--- NOTE | 2023-01-14 04:53 | PC.NURSE ---
Patient bladder scanned at 4:00, Scanned volume was 300ml. RN and CNAs got patient to bedside. Patient voided very little. Patient was put back in bed and bladder scanned again. Remaining volume was 275ML. RN did a straight cath on patient. Returned UOP was 275ml. Will bladder scan again in 6hr unless patient spontaneously voids.
--- NOTE | 2023-01-14 04:58 | PC.NURSE ---
Patient had a decent night. Rested well from around 2am-4am. Did complain of pain early in night. RN asked if patient was in pain this AM patient stated she was not. Patient has ripped out 2 IVs. Currently location is R upper arm 20guage. Patient is stuggling to void. RN made PLANT PROTECTION GUARD aware see communication order and previous notes. RN has had to redress L hip incision x2 due to patient picking the dressing off. Reinforced with 4x4, ABD, Tape. no other issues noted
--- NOTE | 2023-01-14 06:36 | PC.NURSE ---
Patient became very aggressive this morning , ripped at her new iv, ripping her dressing on her hip off again, and also hitting at the staff. mittens were applied for safety reasons. Pain medication given for back pain that patient complained of.
[2023-01-14 07:11] VITALS: BP 128/68; PULSE 86; RESP 16; TEMP 37; O2SAT 92
--- NOTE | 2023-01-14 08:45 | EXP.PN ---
Subjective *Date: 01/14/23 *Time: 15:59 Interval history: She's less confused today She denies pain She hasn't been eating or drinking well per nurse The patient hasn't been able to urinate and last night had an in/out cath after bladder scan revealed near 300mL Exam Data for Last 24 hours Vital signs and Labs for Last 24 Hours: Temp Pulse Resp BP Pulse Ox O2 Del Method O2 Flow Rate 98.6 F 86 16 128/68 92 L Room Air 2 01/14/23 07:11 01/14/23 07:11 01/14/23 07:11 01/14/23 07:11 01/14/23 07:11 01/14/23 07:11 01/12/23 20:55 Laboratory Results - last 24 hr 01/13/23 11:15: WBC 9.2, RBC 3.21 L, Hgb 9.1 L, Hct 29.8 L, MCV 92.8, MCH 28.5, MCHC 30.7 L, RDW 16.1, Plt Count 336, MPV 7.7, Neut % (Auto) 81.0 H, Lymph % (Auto) 13.9, [place] % (Auto) 3.7, Eos % (Auto) 1.2, Baso % (Auto) 0.2, Neut # (Auto) 7.5, Lymph # (Auto) 1.3, [place] # (Auto) 0.3, Eos # (Auto) 0.1, Baso # (Auto) 0.0, Sodium 140, Potassium 4.0 D, Chloride 106, Carbon Dioxide 27, Anion Gap 11.0, BUN 18 H, Creatinine 0.70, Estimated Creat Clear 48, Estimated GFR 80, Est GFR ( Amer) 97, Glucose 110 H, Calcium 8.4, Magnesium 1.9, Total Bilirubin 0.2, AST 30, ALT 17, Alkaline Phosphatase 82, Total Protein 6.2 L, Albumin 3.1 L D, Globulin 3.1, Albumin/Globulin Ratio 1.0 L I & O for Last 24 hours: Intake & Output 01/11/23 01/12/23 01/13/23 01/14/23 23:59 23:59 23:59 23:59 Intake Total 700 / 700 0 / 0 1469 / 1469 Output Total 150 / 150 250 / 250 305 / 305 Balance 550 / 550 -250 / -250 1164 / 1164 Weight 71.753 kg 71.753 kg 75.432 kg Microbiology Reports for the Last 24 Hours: Microbiology 01/12/23 08:06 Urine,Catheterized Urine Culture - Final NO GROWTH AFTER 48 HOURS Constitutional Constitutional: no acute distress *Routine HEENT Exam Head: Present normocephalic Eye: Present EOMI and PERRL ENT: Present mucous membranes moist *Routine Neck Exam Neck: Present supple; Absent lymphadenopathy *Routine Respiratory Exam Respiratory: Present CTA bilaterally *Routine Cardiovascular Exam Cardiovascular: Present RRR *Routine Abdominal Exam Abdominal: Present soft and normoactive bowel sounds; Absent tenderness *Routine Extremities Exam Comments: dressing L hip c/d/i *Routine Skin Exam Skin: Present warm; Absent rash *Routine Neurological Exam Neurological: Present alert Assessment and Plan *Assessment and plan (1) Closed intertrochanteric fracture: Status: Acute Qualifiers: Encounter type: initial encounter Fracture alignment: nondisplaced Laterality: left Qualified Code(s): S72.145A - Nondisplaced intertrochanteric fracture of left femur, initial encounter for closed fracture Category: Medical Code(s): S72.143A - Displaced intertrochanteric fracture of unspecified femur, initial encounter for closed fracture (2) C. difficile diarrhea: Status: Acute Category: Medical Code(s): A04.72 - Enterocolitis due to Clostridium difficile, not specified as recurrent (3) UTI (urinary tract infection): Status: Acute Qualifiers: Urinary tract infection type: acute cystitis Category: Medical Code(s): N39.0 - Urinary tract infection, site not specified (4) Dementia: Status: Acute Category: Medical Code(s): F03.90 - Unspecified dementia, unspecified severity, without behavioral disturbance, psychotic disturbance, mood disturbance, and anxiety (5) Anxiety: Status: Acute Category: Medical Code(s): F41.9 - Anxiety disorder, unspecified Plan Faby Wisdom is an 82 year old female with a past medical history of hypertension, dementia recent diagnoses of UTI and c. diff colitis who presented from a [place] [facility] after a mechanical ground level fall while ambulating with her walker. She was found to have a comminuted left intertrochanteric fracture. On the day of admission the patient had a [facility]
[2023-01-14 08:48] VITALS: BMI 28.3
--- NOTE | 2023-01-14 09:20 | DIET.NUTRFU ---
Spoke with [facility] OR for additional pt history. While in their care for the last 2-3wks, pt's wt was stable at 161-163#, consumed a regular diet/thin liquids, required cuing with meals. Pt would benefit from cuing and assistance during mealtime to improve completion. Added Ensure to be provided with lunch tray to aid in meeting energy and protein needs. Noted 4kg wt increase from yesterday and notified nursing staff.
[2023-01-14 10:01] LABS: Chloride 106 mmol/L (98-107)
[2023-01-14 10:02] LABS: Potassium 3.2 mmoL/L (3.5-5.1); Sodium 139 mmol/L (136-145)
[2023-01-14 10:05] LABS: Anion Gap 8.2 mEq/L (5-15); Blood Urea Nitrogen 16 mg/dl (7-17); Calcium 8.4 mg/dl (8.4-10.2); Carbon Dioxide 28 mmol/L (22.0-30.0); Creatinine Clearance Estimated 51 mL/min (50-200); Estimated Glomerular Filt Rate 69 ml/min (>60); GFR (African American) 83 ML/MIN (>60); Glucose 94 mg/dl (74-100)
[2023-01-14 10:06] LABS: Basophils % 0.2 % (0.1-2.0); Eosinophils # 0.1 K/mm3 (0.0-0.4); Eosinophils % 2.1 % (0.1-12.0); Hematocrit 26.9 % (37.0-47.0); Hemoglobin 8.5 g/dL (12.2-16.2); Lymphocytes # 1.3 K/mm3 (0.7-4.5); Lymphocytes % 24.4 % (10-50); Mean Corpuscular HGB Conc 31.7 g/dL (31.8-35.4); Mean Corpuscular Hemoglobin 29.3 pg (27.0-31.2); Mean Corpuscular Volume 92.6 fl (81-99); Mean Platelet Volume 8.2 fl (7.4-10.4); Monocytes # 0.3 K/mm3 (0.1-1.0); Monocytes % 6.1 % (1.7-9.3); Neutrophils # 3.5 K/mm3 (1.8-7.8); Neutrophils % 67.1 % (37.0-80.0); Platelet Count 289 K/mm3 (142-424); Red Cell Distribution Width 16.1 % (11.5-17.5); White Blood Count 5.3 K/mm3 (4.8-10.8)
[2023-01-14 11:12] VITALS: BP 118/64; PULSE 85; RESP 16; TEMP 37.1; O2SAT 94
--- NOTE | 2023-01-14 12:22 | PC.NURSE ---
bladder scan result at 1030 153 ml. No distention and no pain reported by pt. Patient up to bedside commode to facilitate urination. no results. Will bladder scan again
[2023-01-14 13:26] LABS: Hematocrit 28.6 % (37.0-47.0); Hemoglobin 9.1 g/dL (12.2-16.2)
--- NOTE | 2023-01-14 14:57 | PC.NURSE ---
bladder scan 198
[2023-01-14 15:07] VITALS: BP 113/56; PULSE 99; RESP 16; TEMP 37.1; O2SAT 92
--- NOTE | 2023-01-14 17:55 | EXP.DC.SUM ---
General Admission date:: 01/12/23 Discharge date: 01/14/23 HPI HPI HPI: Ms. Wisdom is an 82-year-old female who lives in a usp. She fell at her usp this morning while ambulating with her walker. Had pain when they tried to get her up. Was brought to the ER for further evaluation. Denies any loss of consciousness, chest pain, shortness of breath, nausea or vomiting. Is currently being treated for a UTI and C. difficile. On evaluation in the ER, patient found to have a comminuted left intertrochanteric fracture. Orthopedics was consulted. Patient admitted for further management and likely surgical intervention this afternoon. Hospital Course Hospital Course Hospital Course: Faby Wisdom is an 82 year old female with a past medical history of hypertension, dementia recent diagnoses of UTI and c. diff colitis who presented from a [facility] after a mechanical ground level fall while ambulating with her walker. She was found to have a comminuted left intertrochanteric fracture. On the day of admission the patient had a cephalomedullary nail fixation of the left hip and the procedure was without any apparent complication. #left comminuted intertrochanteric fracture #c. difficile colitis #UTI #urinary retention, resolved #anemia #anxiety #dementia Rivaroxaban 10mg QPM per Orthopedic Surgery for 30 more days. she will need to follow up with orthopedic surgery in 2 weeks. Continue treating pain as needed For her UTI, the patient received Rocephin (01/12-01/14); she received a day of Augmentin 01/11. she was discharged on the days of cephalexin. urine culture had no growth. For her C diff colitis, continue PO vancomycin (01/10-present) Hgb was trended and was stable at around 9 by day of discharge PT/OT She will discharge to [place] for intermediate, PT and OT. DNR Exam Data for Last 24 hours Vital signs and Labs for Last 24 Hours: Temp Pulse Resp BP Pulse Ox O2 Del Method O2 Flow Rate 98.8 F 99 H 16 113/56 L 92 L Room Air 2 01/14/23 15:07 01/14/23 15:01/14/23 15:01/14/23 15:01/14/23 15:01/14/23 15:01/12/23 20:55 Laboratory Results - last 24 hr 01/14/23 09:50: WBC 5.3 D, RBC 2.90 L, Hgb 8.5 L, Hct 26.9 L, MCV 92.6, MCH 29.3, MCHC 31.7 L, RDW 16.1, Plt Count 289, MPV 8.2, Neut % (Auto) 67.1, Lymph % (Auto) 24.4, [place] % (Auto) 6.1, Eos % (Auto) 2.1, Baso % (Auto) 0.2, Neut # (Auto) 3.5, Lymph # (Auto) 1.3, [place] # (Auto) 0.3, Eos # (Auto) 0.1, Baso # (Auto) 0.0, Sodium 139, Potassium 3.2 L, Chloride 106, Carbon Dioxide 28, Anion Gap 8.2, BUN 16, Creatinine 0.80, Estimated Creat Clear 51, Estimated GFR 69, Est GFR ( Amer) 83, Glucose 94, Calcium 8.4 01/14/23 13:19: Hgb 9.1 L, Hct 28.6 L I & O for Last 24 hours: Intake & Output 01/11/23 01/12/23 01/13/23 01/14/23 23:59 23:59 23:59 23:59 Intake Total 700 / 700 0 / 0 2270 / 2270 Output Total 150 / 150 250 / 250 555 / 555 Balance 550 / 550 -250 / -250 1715 / 1715 Weight 71.753 kg 71.753 kg 75.432 kg Microbiology Reports for the Last 24 Hours: Microbiology 01/12/23 08:06 Urine,Catheterized Urine Culture - Final NO GROWTH AFTER 48 HOURS Constitutional Constitutional: no acute distress *Routine HEENT Exam Head: Present normocephalic Eye: Present EOMI and PERRL ENT: Present mucous membranes moist *Routine Neck Exam Neck: Present supple; Absent lymphadenopathy *Routine Respiratory Exam Respiratory: Present CTA bilaterally *Routine Cardiovascular Exam Cardiovascular: Present RRR *Routine Abdominal Exam Abdominal: Present soft and normoactive bowel sounds; Absent tenderness *Routine Extremities Exam Comments: dressing L hip c/d/i *Routine Skin Exam Skin: Present warm; Absent rash *Routine Neurological Exam Neurological: Present alert Results Data Completed and Pending Labs on day of discharge: Labs from last 24 hours 01/14/23 01/14/23 13:19 09:50 WBC
--- NOTE | 2023-01-14 18:13 | PC.NURSE ---
Spoke to Ladonna at [facility]. Was told that patient could not return to facility as she would be processed as a new admission. This nurse said ok and notified warehouse record clerk. Read case management notes and called [facility] facility again as notes implied patient would not be a new admission and could return today. Was told by volga cee that patient's medications would have been returned after the third day of hospital admission and this nurse asked if the facility still had patient's medications since patient was to return to facility today. [facility] personnel stated medications would have been sent back to pharmacy yesterday on 01/13/2023, 2 days after patient admission. [facility] supervisor notified that patient could not return to facility [facility].
--- NOTE | 2023-01-14 18:44 | PC.NURSE ---
Patient remains confused during shift. PRN pain medication given and relief noted from patient. VS stable and patient remained on room air. PAtient pulled IV out at 1840, notified Dr. Bloom. Per MD ok to leave IV out as long as patient is drinking regularly. Left hip dressing clean dry and intact.
[2023-01-14 20:00] VITALS: BP 130/71; PULSE 94; RESP 19; TEMP 36.7; O2SAT 91
--- NOTE | 2023-01-14 22:26 | PC.NURSE ---
bladder scan results 20ml of urine. pt confused and unable to voice if she feels the urge to urinate. pitcher of water filled up at bedside, and encouraging PO intake. pt currently has no IV patent r/t removing herself on dayshift. aware.
[2023-01-15] VITALS: BP 138/73; PULSE 132; RESP 17; TEMP 37.2; O2SAT 92
[2023-01-15 04:00] VITALS: BP 124/71; PULSE 110; RESP 17; TEMP 37.4; O2SAT 93; BMI 28.2
--- NOTE | 2023-01-15 04:11 | PC.NURSE ---
pt voided, bladder scan not needed at this time
[2023-01-15 08:00] VITALS: BP 145/75; PULSE 108; RESP 20; TEMP 36.9; O2SAT 94
--- NOTE | 2023-01-15 08:41 | P.PN_ITS ---
Subjective *Date: 01/15/23 *Time: 08:41 Medical Exam Vital signs and Labs for Last 24 Hours: Vital Signs Temp Pulse Resp BP Pulse Ox O2 Del Method 01/15/23 08:00 98.5 F 108 H 20 145/75 H 94 L Room Air 01/15/23 06:17 Room Air 01/15/23 04:00 99.4 F 110 H 17 124/71 93 L Room Air 01/15/23 04:44 Room Air 01/15/23 02:43 Room Air 01/15/23 00:00 98.9 F 132 H 17 138/73 92 L Room Air 01/15/23 01:00 Room Air 01/14/23 22:45 Room Air 01/14/23 21:00 Room Air 01/14/23 20:00 98.0 F 94 H 19 130/71 91 L Room Air 01/14/23 20:00 Room Air 01/14/23 18:32 Room Air 01/14/23 17:00 Room Air 01/14/23 15:06 Room Air 01/14/23 15:07 98.8 F 99 H 16 113/56 L 92 L Room Air 01/14/23 13:02 Room Air 01/14/23 11:00 Room Air 01/14/23 09:06 Room Air 01/14/23 11:12 98.8 F 85 16 118/64 94 L Room Air Intake and Output 01/14/23 01/15/23 01/15/23 23:59 07:59 15:59 Intake Total 681 / 2390 240 / 240 Output Total 250 / 555 0 / 0 Balance 431 / 1835 240 / 240 Intake: Intake, Oral Amount 120 / 360 240 / 240 Intake, Total IV Amount 561 / 2030 Lactated Ringers 1000ML 1,000 561 / 1979 ml @ 75 mls/hr IV .[id number] [facility] Rx#:[id number] Output: Output, Urine Amount 250 / 555 0 / 0 Other: Number of Unmeasured Voids 0 2 Weight 75.024 kg Patient Weight 01/15/23 23:59 Weight 75.024 kg Laboratory Results - last 24 hr 01/14/23 09:50: WBC 5.3 D, RBC 2.90 L, Hgb 8.5 L, Hct 26.9 L, MCV 92.6, MCH 29.3, MCHC 31.7 L, RDW 16.1, Plt Count 289, MPV 8.2, Neut % (Auto) 67.1, Lymph % (Auto) 24.4, [place] % (Auto) 6.1, Eos % (Auto) 2.1, Baso % (Auto) 0.2, Neut # (Auto) 3.5, Lymph # (Auto) 1.3, [place] # (Auto) 0.3, Eos # (Auto) 0.1, Baso # (Auto) 0.0, Sodium 139, Potassium 3.2 L, Chloride 106, Carbon Dioxide 28, Anion Gap 8.2, BUN 16, Creatinine 0.80, Estimated Creat Clear 51, Estimated GFR 69, Est GFR ( Amer) 83, Glucose 94, Calcium 8.4 01/14/23 13:19: Hgb 9.1 L, Hct 28.6 L I & O for Labs for Last 24 Hours: Intake & Output 01/12/23 01/13/23 01/14/23 01/15/23 23:59 23:59 23:59 23:59 Intake Total 700 / 700 0 / 0 2390 / 2390 240 / 240 Output Total 150 / 150 250 / 250 555 / 555 0 / 0 Balance 550 / 550 -250 / -250 1835 / 1835 240 / 240 Weight 71.753 kg 71.753 kg 75.432 kg 75.024 kg Microbiology Reports for the Last 24 Hours: Microbiology 01/12/23 08:06 Urine,Catheterized Urine Culture - Final NO GROWTH AFTER 48 HOURS The patient's infection will respond to the chosen ABx?: Yes (EMPIRIC THERAPY) Is the patient receiving the right drug, dose, and route?: Yes Could a more targeted ABx be ordered?: No (CULTURES PENDING)
== END 2023-01-15 09:46 | disposition home or self-care (01) | DRG 481 ==
LOC: ER 05:37 → 2ND 08:19
PROVIDERS: Emergency Medicine; Internal Medicine; Orthopaedic Surgery; Admitting Provider Internal Medicine Adolescent Medicine; Emergency Provider Emergency Medicine; PCP Emergency Medicine; Visit Provider Internal Medicine Adolescent Medicine
PROC: 0QH836Z Insertion of Intramedullary Internal Fixation Device into Right Femoral Shaft, Percutaneous Approach (ICD-10-PCS; principal; 2023-01-12 19:00)
DX: S72.145A Nondisplaced intertrochanteric fracture of left femur, initial encounter for closed fracture (principal); A04.72 Enterocolitis due to Clostridium difficile, not specified as recurrent; N39.0 Urinary tract infection, site not specified; F03.90 Unspecified dementia, unspecified severity, without behavioral disturbance, psychotic disturbance, mood disturbance, and anxiety; F41.9 Anxiety disorder, unspecified; G30.9 Alzheimer's disease, unspecified; F02.80 Dementia in other diseases classified elsewhere, unspecified severity, without behavioral disturbance, psychotic disturbance, mood disturbance, and anxiety; W19.XXXA Unspecified fall, initial encounter; Z96.641 Presence of right artificial hip joint; Z66 Do not resuscitate
CPT/HCPCS: 27245; 51702; 70450; 71045; 71250; 72125; 72128; 72131; 73502; 73552; 74176; 76000; 80048; 80053; 81001; 83735; 85014; 85018; 85025; 87086; 93005; 97163; 97167; 97530; C1713; C1776; J0131; J0696; J2405

== ENCOUNTER → 2023-01-30 14:38 | Outpatient (CLI) | payer MEDICARE, SELFPAY ==
--- NOTE | 2023-01-30 14:51 | XR_ITS ---
FINAL REPORT CLINICAL HISTORY: LT Hip pain COMPARISON: 01/12/2023 FINDINGS: Left hip/pelvis Four views were obtained. There is no acute fracture or dislocation. There are postoperative changes from ORIF of the proximal left femur, stable. The bony alignment is stable. There are postoperative changes of the right hip. There are degenerative changes in the lower lumbar spine. There are chronic calcifications adjacent to the left hip. IMPRESSION: Postsurgical changes as above. Reviewed, Interpreted and Dictated by Chicho Oliveira III, MD Transcribed by Nikia Person Authenticated and . [facility]
== END ==
PROVIDERS: PCP Emergency Medicine; Visit Provider Orthopaedic Surgery
DX: M25.552 Pain in left hip (principal)
CPT/HCPCS: 73502

== ENCOUNTER 2023-04-12 15:42 | Emergency (ER) | payer MEDICARE, MEDICAID, SELFPAY ==
[2023-04-12] VITALS (8 sets, daily range): BP systolic 128–150; BP diastolic 66–79; PULSE 68–101; RESP 18–20; TEMP 36.6–37.2; O2SAT 95–100; BMI 28.3
--- NOTE | 2023-04-12 16:23 | XR_ITS ---
PROCEDURE INFORMATION: Exam: XR Pelvis Exam date and time: 04/12/2023 4:58 PM Age: 83 years old Clinical indication: Injury or trauma; Fall; Blunt trauma (contusions or hematomas); Bilateral; Hip; Additional info: Pain b/l hips TECHNIQUE: Imaging protocol: Radiologic exam of the pelvis. Views: 1 or 2 view. COMPARISON: CR XR HIP LT 2-3V W/PELVIS 01/30/2023 2:52 PM FINDINGS: Bones/joints: Right hip prosthesis and intramedullary rods in the left femur remain in place. Moderate degenerative changes noted in the lower lumbar spine and pubic symphysis. No acute fracture. Soft tissues: Unremarkable. IMPRESSION: No acute fracture
--- NOTE | 2023-04-12 16:23 | XR_ITS ---
PROCEDURE INFORMATION: Exam: XR Right Femur Exam date and time: 04/12/2023 4:59 PM Age: 83 years old Clinical indication: Injury or trauma; Fall; Blunt trauma; Thigh or upper leg; Right TECHNIQUE: Imaging protocol: Radiologic exam of the right femur. Views: 2 views. COMPARISON: CR XR FEMUR RT 2V 01/12/2023 3:57 AM FINDINGS: Bones/joints: Right hip prosthesis in place. No evidence of hardware failure or loosening. Osseous alignment is normal. No acute fracture. Mild degenerative changes in the right knee. Soft tissues: Unremarkable. IMPRESSION: No acute abnormality
--- NOTE | 2023-04-12 16:23 | CT_ITS ---
PROCEDURE INFORMATION: Exam: CT Pelvis Without Contrast; Skeletal Exam date and time: 04/12/2023 5:03 PM Age: 83 years old Clinical indication: Injury or trauma; Fall; Blunt trauma (contusions or hematomas); Bilateral; Hip; Additional info: Fall, pisterior hip pain TECHNIQUE: Imaging protocol: Computed tomography of the pelvis without contrast. Exam focused on the skeleton. Radiation optimization: All CT scans at this facility use at least one of these dose optimization techniques: automated exposure control; mA and/or kV adjustment per patient size (includes targeted exams where dose is matched to clinical indication); or iterative reconstruction. REPORTING DATA: Count of CT and Cardiac NM exams in prior 12 months: This patient has received 6 known CTs and 0 known cardiac nuclear medicine studies in the 12 months prior to the current study. COMPARISON: CT ABDOMEN PELVIS WO CON 01/12/2023 3:54 AM FINDINGS: Reproductive: Stable 5.1 x 4.0 cm soft tissue mass in the right adnexal region compared to 01/12/2023. Bones/joints: Interval ORIF of the left hip fracture with placement of a lag screw in the left femoral neck and a short stem intramedullary joseph in the proximal left femur with satisfactory position and alignment. Healing changes are noted. No definite acute fracture identified. Right total hip arthroplasty appears intact. No other findings. Soft tissues: Unremarkable. IMPRESSION: 1. Interval ORIF of the left hip fracture. No definite acute fracture but sensitivity may be limited given the pre-existing relatively recent fracture with no interval study after patient's left hip surgery for comparison. 2. Incidental 5.1 cm right adnexal mass again noted. This might be a exophytic fibroid but a solid right adnexal mass related to tumor can not be excluded. Further assessment with nonemergent ultrasound of the pelvis advised.
--- NOTE | 2023-04-12 16:23 | CT_ITS ---
PROCEDURE INFORMATION: Exam: CT Head Without Contrast Exam date and time: 04/12/2023 5:01 PM Age: 83 years old Clinical indication: Injury or trauma; Fall; Blunt trauma (contusions or hematomas); Additional info: Unwitnessed fall TECHNIQUE: Imaging protocol: Computed tomography of the head without contrast. Radiation optimization: All CT scans at this facility use at least one of these dose optimization techniques: automated exposure control; mA and/or kV adjustment per patient size (includes targeted exams where dose is matched to clinical indication); or iterative reconstruction. REPORTING DATA: Count of CT and Cardiac NM exams in prior 12 months: This patient has received 6 known CTs and 0 known cardiac nuclear medicine studies in the 12 months prior to the current study. COMPARISON: CT HEAD/BRAIN WO CON 01/12/2023 3:40 AM FINDINGS: Brain: Age-related involutional changes and chronic microvascular ischemic disease. No evidence for acute transcortical infarct. No mass effect or midline shift. No extra-axial collection. No acute intracranial hemorrhage. Basal cisterns are patent. Cerebral ventricles: No ventriculomegaly. Paranasal sinuses: Visualized sinuses are unremarkable. No fluid levels. Mastoid air cells: Visualized mastoid air cells are well aerated. Bones/joints: Unremarkable. No acute fracture. Soft tissues: Unremarkable. IMPRESSION: No evidence for acute transcortical infarct, acute intracranial hemorrhage, or mass effect.
--- NOTE | 2023-04-12 16:23 | XR_ITS ---
PROCEDURE INFORMATION: Exam: XR Left Femur Exam date and time: 04/12/2023 5:11 PM Age: 83 years old Clinical indication: Injury or trauma; Fall; Blunt trauma; Thigh or upper leg; Left TECHNIQUE: Imaging protocol: Radiologic exam of the left femur. Views: 2 views. COMPARISON: CR XR FEMUR LT 2V 01/12/2023 3:57 AM FINDINGS: Bones/joints: Orthopedic hardware noted in the proximal left femur. Old intertrochanteric left femur fracture. No acute fracture evident. No evidence of hardware failure or loosening. Degenerative changes noted in the left knee. Soft tissues: Unremarkable. IMPRESSION: No acute abnormality. Chronic findings as noted
--- NOTE | 2023-04-12 16:30 | HMH.EDGENADL ---
Discharge Plan Disposition Patient Disposition: [facility] Chief Complaint: Fall Prescriptions Prescriptions: No Action alprazolam [Xanax] 0.5 mg tablet 0.5 mg PO BID PRN (Reason: anxiety) 90 Days Qty: 180 0RF tramadol 50 mg tablet 50 mg PO TID PRN (Reason: pain) Qty: 90 0RF venlafaxine 37.5 mg Tablet 37.5 mg PO DAILY quetiapine [Seroquel] 50 mg Tablet 150 mg PO HS calcium carbonate 500 mg calcium (1,250 mg) Tablet 500 mg PO DAILY vancomycin 125 mg/2.5 mL Syringe 125 mg PO QID Probiotic 5 billion cell Capsule, Sprinkle 1 cap PO DAILY sennosides [senna] 8.6 mg Tablet 8.6 mg PO DAILY PRN (Reason: Constipation) ondansetron HCl 4 mg Tablet 4 mg PO Q6H PRN (Reason: Nausea) acetaminophen 500 mg Tablet 500 mg PO Q6H PRN (Reason: Pain) oxycodone 5 mg tablet 5 mg PO Q4H PRN (Reason: pain) Qty: 30 0RF Xarelto 10 mg tablet 10 mg PO DAILY Qty: 30 0RF Rx Instructions: for 35 days cephalexin 500 mg capsule 500 mg PO QID Qty: 12 0RF Rx Instructions: take one tablet for times daily for 3 days Referrals Follow up/Referrals: Provider,Referral, MD [Primary Care Provider] - See instructions Activity Restrictions/Add. Instructions Additional Instructions/Restrictions: At this time it was felt you are safe to be discharged home. If new or worsening symptoms please do not hesitate to return the emergency department. If symptoms persist please follow-up with your family doctor as you are able. It was found that you have a adnexal mass today of undetermined etiology. Please make follow-up with your family doctor for surveillance of this. Clinical Impressions Clinical Impression: Fall, Acute hip pain, Adnexal mass Discharge ED Provider: Deo Aguilera General Adult HPI General Chief complaint: Fall Stated complaint: Fall Time Seen by Provider: 04/12/23 16:00 Mode of Arrival: EMS Source of Information: EMS and Medical Record Limitations: Altered Mental Status Description of Symptoms (Recalled from ER Triage Doc. by RN): pt came from half-way s/p fall that was unwitnessed by nursing homes t[facility], pt was found down and per ems did not hit head or have any LOc. pt cc to ems is midline hip pain, pt cc to nurse was right buttock pain. no obvious deformities History of Present Illness HPI narrative: Patient is a 83-year-old female with past medical history of Alzheimer's dementia who presents emergency department after a fall. Patient was found next to her bed at the half-way, unwitnessed. Patient is complaining only of posterior hip pain. Denies hitting her head, any other acute complaints at this time. Related Data Home Medications Medication Instructions Recorded Confirmed Lactobacil.acidophilus-Bifido.animalis 1 cap PO DAILY probiotic 01/12/23 03/12/23 5 billion cell sprinkle capsule (Probiotic) acetaminophen 500 mg tablet 500 mg PO Q6H PRN Pain 01/12/23 03/12/23 calcium carbonate 500 mg calcium 500 mg PO DAILY Supplement 01/12/23 03/12/23 (1,250 mg) tablet ondansetron HCl 4 mg tablet 4 mg PO Q6H PRN Nausea 01/12/23 03/12/23 quetiapine 50 mg tablet (Seroquel) 150 mg PO HS dementia 01/12/23 03/12/23 sennosides 8.6 mg tablet (senna) 8.6 mg PO DAILY PRN Constipation 01/12/23 03/12/23 vancomycin 125 mg/2.5 mL oral 125 mg PO QID C. Diff 01/12/23 03/12/23 syringe (FOR ORAL USE ONLY) venlafaxine 37.5 mg tablet 37.5 mg PO DAILY Depression 01/12/23 03/12/23 Previous Rx's Medication Instructions Recorded alprazolam 0.5 mg tablet (Xanax) 0.5 mg PO BID PRN anxiety 90 days 01/06/23 #180 tabs oxycodone 5 mg tablet 5 mg PO Q4H PRN pain #30 tabs 01/12/23 rivaroxaban 10 mg tablet (Xarelto) 10 mg PO DAILY #30 tabs 01/12/23 cephalexin 500 mg capsule 500 mg PO QID #12 caps 01/14/23 tramadol 50 mg tablet 50 mg PO TID PRN pain #90 tabs 01/16/23 Allergies Allergy/AdvReac Type Severity Reaction Status Date / Time Opioids - Mor
--- NOTE | 2023-04-12 16:34 | XR_ITS ---
PROCEDURE INFORMATION: Exam: XR Chest Exam date and time: 04/12/2023 5:12 PM Age: 83 years old Clinical indication: Injury or trauma; Fall; Blunt trauma (contusions or hematomas) TECHNIQUE: Imaging protocol: Radiologic exam of the chest. Views: 1 view. COMPARISON: CR XR CHEST PORTABLE 01/12/2023 3:57 AM FINDINGS: Lungs: Unremarkable. No consolidation. Pleural spaces: Unremarkable. No pleural effusion. No pneumothorax. Heart/Mediastinum: Unremarkable. No cardiomegaly. Bones/joints: Moderate degenerative changes in the spine and shoulders. No acute fracture. IMPRESSION: No acute abnormality
[2023-04-12 16:36] LABS: Basophils % 0.3 % (0.1-2.0); Eosinophils # 1.3 K/mm3 (0.0-0.4); Eosinophils % 11.2 % (0.1-12.0); Hematocrit 36.7 % (37.0-47.0); Hemoglobin 12.3 g/dL (12.2-16.2); Lymphocytes # 2.3 K/mm3 (0.7-4.5); Lymphocytes % 20.2 % (10-50); Mean Corpuscular HGB Conc 33.5 g/dL (31.8-35.4); Mean Corpuscular Hemoglobin 31.1 pg (27.0-31.2); Mean Corpuscular Volume 92.9 fl (81-99); Mean Platelet Volume 7.8 fl (7.4-10.4); Monocytes # 0.4 K/mm3 (0.1-1.0); Monocytes % 3.4 % (1.7-9.3); Neutrophils # 7.3 K/mm3 (1.8-7.8); Neutrophils % 64.8 % (37.0-80.0); Platelet Count 293 K/mm3 (142-424); Red Blood Count 3.95 M/mm3 (4.20-5.40); Red Cell Distribution Width 16.6 % (11.5-17.5); White Blood Count 11.3 K/mm3 (4.8-10.8)
[2023-04-12 16:42] LABS: Chloride 103 mmol/L (98-107); Potassium 3.8 mmoL/L (3.5-5.1); Sodium 135 mmol/L (136-145)
[2023-04-12 16:44] LABS: Alanine Aminotransferase 22 U/L (12-78); Aspartate Amino Transferase 33 U/L (14-36); Blood Urea Nitrogen 16 mg/dl (7-17); Creatinine Clearance Estimated 49 mL/min (50-200); Estimated Glomerular Filt Rate 68 ml/min (>60); GFR (African American) 83 ML/MIN (>60)
[2023-04-12 16:45] LABS: Albumin Level 3.4 g/dl (3.5-5.0); Alkaline Phosphatase 165 U/L (38-126); Anion Gap 7.8 mEq/L (5-15); Bilirubin,Total 0.5 mg/dl (0.2-1.3); Calcium 8.4 mg/dl (8.4-10.2); Carbon Dioxide 28 mmol/L (22.0-30.0); Globulin 3.5 g/dL (1.3-3.2); Glucose 111 mg/dl (74-100); Total Protein,Serum 6.9 g/dl (6.3-8.2)
--- NOTE | 2023-04-12 18:53 | PC.NURSE ---
attempted to call [facility] to get information about pts baseline mobility. was transferred to someone and the phone got disconnected.
--- NOTE | 2023-04-12 19:01 | PC.NURSE ---
called report to gail at [facility] and have placed a call into [facility] for transport back
--- NOTE | 2023-04-12 19:06 | PC.NURSE ---
EMS called for Transport at this time.
== END 2023-04-12 19:21 ==
PROVIDERS: Emergency Provider Emergency Medicine
DX: M25.552 Pain in left hip (principal); N94.89 Other specified conditions associated with female genital organs and menstrual cycle; G30.9 Alzheimer's disease, unspecified; F02.80 Dementia in other diseases classified elsewhere, unspecified severity, without behavioral disturbance, psychotic disturbance, mood disturbance, and anxiety; Z87.891 Personal history of nicotine dependence; W19.XXXA Unspecified fall, initial encounter
CPT/HCPCS: 70450; 71045; 72170; 72192; 73552; 80053; 85025; 96374; 99285; J0131

== ENCOUNTER → 2023-05-08 10:02 | Outpatient (CLI) | payer MEDICARE, MEDICAID, SELFPAY ==
--- NOTE | 2023-05-08 10:02 | US_ITS ---
PROCEDURE: US TRANSVAGINAL CLINICAL INDICATION: abnormal CT pelvis COMPARISON: CT CT BONY PELVIS from 04/12/2023 FINDINGS: Transvaginal sonographic images of the pelvis were obtained. UTERUS: 5cm x 4cmx 2cm anteverted with a combined endometrial thickness of 2.7mm. Degenerative changes are seen and there are calcifications on the anterior aspect of the uterus. A 6 mm nabothian cyst is seen in the cervix. LEFT OVARY: Not visualized RIGHT OVARY: Not visualized There is a 5.0 cm x 2.7 cm x 4.1 cm mass in the right adnexa. It is well-circumscribed. It has the appearance of a fibroid. There is blood flow within this mass. CT scan on January 12, 2023 showed a 5.1 cm right adnexal mass. It has not changed appreciably in size. Both ovaries are not visualized. There is no fluid in the cul-de-sac. IMPRESSION: 1. Anteverted degenerative uterus, small in size. The endometrium is thin. 2. The ovaries were not visualized. 3. There is a solid mass in the right adnexa measuring 5.0 centimeters in size. This has not increased in size since a CT scan done in December. 4. Suspect a benign fibroid but a repeat ultrasound to monitor growth should be done in 3-4 months. Dictated by: Rafael Martinez MD 05/08/2023 17:43 Rafael Martinez MD in [place] 05/08/2023 17:43
== END ==
PROVIDERS: PCP Emergency Medicine; Visit Provider Nurse Practitioner Family
DX: N94.89 Other specified conditions associated with female genital organs and menstrual cycle (principal)
CPT/HCPCS: 76830

== ENCOUNTER 2023-06-24 10:58 | Outpatient (CLI) | payer MEDICARE, MEDICAID, SELFPAY ==
--- NOTE | 2023-06-24 10:59 | FL_ITS ---
FINAL REPORT CLINICAL HISTORY: 4.43 fluoro time 449.90 dap trouble swallowing FINDINGS: MODIFIED BARIUM SWALLOW History: Dysphagia FINDINGS: Fluoroscopy was provided for the speech pathologist to evaluate the swallowing mechanism. The patient was given several different consistencies of barium while the swallow was visualized fluoroscopically. The report of the speech pathologist should be consulted prior to making dietary decisions. IMPRESSION: Modified barium swallow under fluoroscopic guidance. Please see the report of the speech pathologist for Dietary recommendations. Films reviewed , interpreted and dictated by Dr. Oliveira Transcribed by Rex Ann PA-C. Reviewed, Interpreted and Dictated by Chicho Oliveira III, MD Transcribed by PAO Hall Authenticated and [facility]
--- NOTE | 2023-06-24 14:48 | HMH.SLMBS2 ---
Speech & Language Evaluation Speech/Language Mod Barium Swallow Start: 06/24/23 14:28 Freq: once Status: Complete Protocol: Document 06/24/23 14:29 MARKELL (Rec: 06/24/23 14:48 MARKELL [id number]) General Information General Current Food Consistancy Regular,Thin Liquids Dentition Upper & Lower Dentures Oxygen Status Room Air Ability to Follow Directions Fair Communication Ability Moderate Impairment MBS Recommendations Diet Dietary Recommendations Mechanical Soft,Dysphagia Mechanical Soft,Ground Meats, Pureed,Thin Liquids Comment provided two options of , ground with extra sauces and gravy or pureed Treatment/Strategies Strategy/Precaution Recommend Sitting Upright (90 deg), Double Swallow,Small Bites and Sips,Alternate Liquids/Solids Mod Barium Swallow Impressions Summary and Impressions Oral Phase Impression Severe Impairment Oral Phase Summary Severe impairment of the oral preparatory and oral transit phase of the swallow. Ms. Wisdom was observed to orally hold solids in the oral cavity and required prompts/cues throughout the instrumental to chew and swallow the bolus provided. Across all consistencies, pt exhibited premature spillage of bolus. When given puree/pudding liquids she was observed to pump her tongue in order to attempt to transition her food to the next phase of the swallow. 2' dementia dx she consistently spoke and attempted to communicate through trials and needed frequent prompting to practice safe eating precautions. This was especially an issue when Ms. Wisdom was given a mechanical soft solid; she was noted to do better when it was crushed with barium pudding during another trial. Across MS trials, Faby was observed to munch her food when prompted, but chewing pattern with tongue lateralization was uncoordinated causing scattered loss with the oral cavity and under the base of tongue. She required a puree/ pudding wash to clear. REPRODUCTION ORDER PROCESSOR provided two separate recommendations for patient as well as education on reasoning behind choosing mechanical soft ground or pureed with snf REPRODUCTION ORDER PROCESSOR who expressed understanding. Pharyngeal Phase Impression Moderate Impairment Pharyngeal Phase Summary Moderate to severe impairment of the pharyngeal phase of the swallow. Pt was observed across all consistencies to require a double swallow (cued ) to clear residuals found within the vallecular and pyriform sinus spaces. She demonstrated A/P spills and premature spillage that pooled within the valleuclar space with residual observed on BOT. When patient did not facilitate swallow independently residudals from valleculae were observed to spill into airspace and she was unable to clear causing aspiration. Aspiration risk was reduced when given 1:1 prompting during swallow; it is recommended that she not communicate during meals and has no distractions in order to assist in swallow timing. Pt performed better with smaller bites and sips of bolus consistencies. Pt had an reduced BOT retraction and reduced hyolaryngeal excursion limiting airway protection 2' decreased epiglottic coverage . Overall, pt's swallow is untimely, and uncoordinated. It is recommended she receive assistance during feedings at her snf with either of REPRODUCTION ORDER PROCESSOR recommended diets. Speech/Language MBS Assessment/Goals/Plan Assessment Date of Evaluation: 06/24/23 Evaluation Type Initial Certification Assessment/Problems silent aspiration precautions. Does Patient Qualify for Service Yes Qualify/Failure Comment It is recommended that REPRODUCTION ORDER PROCESSOR at snf continue to follow up with Ms. Wisdom to ensure compliance with recommendations made during today's MBSS. Recommendations PHYSICIAN CERTIFICATION: The specified therapy services are required, authorized, and reviewed every 30 days. Diet Recommendations puree or MS ground Liquid Type Recommendations Normal/Thin SL Swallow Guidelines Assist w/all meals,Alt bite w/ sip thru meal,High aspiration risk,Chk mough for pocketing, Crush meds as allowed*,Eat at slow rate,Liquids given*,Place food* Crush Meds Crush all meds Dysphagia Swallow Precautions/Strategies Sitting Upright (90 deg), Double Swallow,Small Bites and Sips,Alternate Liquids/Solids Place Food on Either side of Mouth Plan Pt/Guardian verbally ack understanding Yes of dx/prognosis/goals G -code Required No Education Instructions provided Discussed MBSS results, aspiration concerns/ precautions, and diet recommendations with pt and tech, as well as snf REPRODUCTION ORDER PROCESSOR all of which expressed understanding. Pt/Caregiver able to recall information Able to recall/restate Reinforcement needed No Mod Barium Swallow Setup Exam Setup Radiologist Chicho Oliveira Level of Consciousness Awake,Alert Comment pt was notably pleasantly confused 2' dementia, required frequent prompts/cues throughout the assessment. Mod Barium Swallow-Lat View Textures Lateral View Food Presentation Thin Liquid via Spoon,Thin Liquid via Cup,Thin Liquid via Straw,Pureed Food- Thin,Mech. Soft Food- Chopped,Mech. Soft Food- Regular,Pudding Comment puree: applesauce mechanical soft: nutrigrain bar (and crumbled bar with barium pudding) Oral Phase Labial Closure Moderate Impairment Bolus Formation under Tongue Severe Impairment Bolus Formation Scattered Loss Severe Impairment Mastication Rotary Chew Severe Impairment Mastication Munching Severe Impairment Mastication Lateralization Severe Impairment Lingual Movement Moderate Impairment Residue Clearing Moderate Impairment Other Oral Phase Observations Pt was observed to have difficulty with timing of labial closure during presentation of bolus trials, she required cueing to close lips and to take bites/sips. When bolus was in oral cavity she was observed to attempt to talk/speak nonsensely about [place] and her babies. REPRODUCTION ORDER PROCESSOR was required to frequently remind her she had food/liquid in her mouth that she needed to chew and swallow. 2' distractions and dementia dx, bolus was lost anteriorly, and scattered residuals observed. Pharyngeal Phase A/P Lingual Propulsion Spills Severe Impairment Swallow Response Delay Severe Impairment Base of Tongue Moderate Impairment Epiglottic Coverage Moderate Impairment Vallecular Retention Clearing Severe Impairment Pharyn. Wall Residue Clearing Moderate Impairment Piriform Sinus Retention Moderate Impairment Other Pharyngeal Phase Observation 2' mistiming found during oral transit phase of the swallow A/P spills were observed causing machelle residual pooling in the vallecular space across consistencies. Pt was required to have prompts to swallow and/or clear throat or cough. Across all consistencies, she required a double swallow. Aspiration? Yes: likely 2' attempts to communicate throughout instrumental When aspirated Before the swallow Silent aspiration? Inconsistent Reason for aspiration Mistiming of swallow and distracted, demented pt with need for 1:1 prompts/cues. Mod Barium Swallow-AP View Performed Mod Barium Swallow A/P View Test Not Applicable/Performed PHYSICIAN CERTIFICATION: I certify the specified therapy services for Faby Bondsb are required, authorized, and reviewed every 30 days.
== END 2023-06-24 23:59 ==
PROVIDERS: PCP Internal Medicine; Visit Provider Internal Medicine
DX: R13.10 Dysphagia, unspecified (principal)
CPT/HCPCS: 70371; 92611

== ENCOUNTER 2023-07-25 21:49 | Emergency (ER) | payer MEDICARE, MEDICAID, SELFPAY ==
[2023-07-25 21:58] VITALS: BP 138/77; PULSE 83; RESP 18; TEMP 36.7; O2SAT 98; BMI 25.7
--- NOTE | 2023-07-25 22:00 | XR_ITS ---
PROCEDURE INFORMATION: Exam: XR Right Femur Exam date and time: 07/25/2023 10:03 PM Age: 83 years old Clinical indication: Injury or trauma; Fall; Blunt trauma; Right; Injury date: 07/25/23; Prior surgery; Surgery date: 6+ months; Surgery type: Rodriguez hip TECHNIQUE: Imaging protocol: Radiologic exam of the right femur. Views: 2 views. COMPARISON: CR XR FEMUR RT 2V 04/12/2023 4:59 PM FINDINGS: Bones/joints: Right total hip arthroplasty which appears intact. No acute fracture identified. Soft tissues: Unremarkable. IMPRESSION: No acute abnormality.
--- NOTE | 2023-07-25 22:00 | XR_ITS ---
PROCEDURE INFORMATION: Exam: XR Pelvis Exam date and time: 07/25/2023 10:02 PM Age: 83 years old Clinical indication: Injury or trauma; Fall; Blunt trauma (contusions or hematomas); Bilateral; Hip and pelvic region; Injury date: 07/25/23; Injury details: Lt hip pain; Prior surgery; Surgery date: 6+ months; Surgery type: Rodriguez. Hip; Additional info: Fall, b/l hip pain TECHNIQUE: Imaging protocol: Radiologic exam of the pelvis. Views: 1 or 2 view. COMPARISON: CT BONY PELVIS 04/12/2023 5:03 PM FINDINGS: Bones/joints: Right knee arthroplasty noted. Old left hip fracture with lag screw and intramedullary joseph redemonstrated. No acute fracture. Soft tissues: Unremarkable. IMPRESSION: No acute finding.
--- NOTE | 2023-07-25 22:00 | XR_ITS ---
PROCEDURE INFORMATION: Exam: XR Left Femur Exam date and time: 07/25/2023 10:08 PM Age: 83 years old Clinical indication: Injury or trauma; Fall; Blunt trauma; Left; Injury date: 07/25/23; Prior surgery; Surgery date: 6+ months; Surgery type: Rodriguez hip TECHNIQUE: Imaging protocol: Radiologic exam of the left femur. Views: 2 views. COMPARISON: CR XR FEMUR LT 2V 04/12/2023 5:11 PM FINDINGS: Bones/joints: Old healed left hip fracture with lag screw placement and short stem intramedullary joseph in the proximal femur similar to previous. No acute fracture identified. Degenerative changes of the left knee noted. Soft tissues: Unremarkable. IMPRESSION: No acute finding.
--- NOTE | 2023-07-25 22:01 | ED_ITS ---
Discharge Plan Disposition Patient Disposition: Xfer SNF Prescriptions Prescriptions: No Action tramadol 50 mg tablet 50 mg PO TID PRN (Reason: pain) Qty: 90 2RF sennosides [senna] 8.6 mg tablet 17.2 mg PO DAILY PRN (Reason: Constipation) quetiapine [Seroquel] 50 mg tablet 50 mg PO BID Saccharomyces boulardii [Florastor] 250 mg capsule 250 mg PO DAILY mirtazapine [Remeron] 30 mg tablet 30 mg PO DAILY calcium carbonate [Antacid (calcium carbonate)] 200 mg calcium (500 mg) tablet,chewable 200 mg PO DAILY benzonatate 100 mg capsule 100 mg PO TID PRN guaifenesin [Mucinex] 600 mg tablet extended release 12hr 600 mg PO BID PRN ondansetron HCl 4 mg Tablet 4 mg PO Q6H PRN (Reason: Nausea) acetaminophen 500 mg Tablet 500 mg PO Q6H PRN (Reason: Pain) oxycodone 5 mg tablet 5 mg PO Q4H PRN (Reason: pain) Qty: 30 0RF Referrals Follow up/Referrals: Willima Pa DO [Primary Care Provider] - See instructions Activity Restrictions/Add. Instructions Additional Instructions/Restrictions: At this time it was felt you are safe to be discharged home. If new or worsening symptoms please do not hesitate to return the emergency department. If symptoms persist please follow-up with your family doctor as you are able. Clinical Impressions Clinical Impression: Fall, Hip pain Discharge ED Provider: Deo Aguilera General Adult HPI General Chief complaint: Fall Stated complaint: fall Time Seen by Provider: 07/25/23 21:50 History of Present Illness HPI narrative: Patient is a 83-year-old female that lives in long-term nursing facility who presents emergency department for evaluation of traumatic injury sustained in a fall. Patient has past medical history of previous left intertrochanteric femur fracture. She had an unwitnessed fall from approximately 6 inches in height out of bed and was originally complaining of bilateral hip pain causing staff to call 911 for continued evaluation. Upon arrival patient is not complaining of pain. No other acute complaints at this time. Related Data Home Medications Medication Instructions Recorded Confirmed acetaminophen 500 mg tablet 500 mg PO Q6H PRN Pain 01/12/23 06/25/23 ondansetron HCl 4 mg tablet 4 mg PO Q6H PRN Nausea 01/12/23 06/25/23 Saccharomyces boulardii 250 mg 250 mg PO DAILY 05/22/23 06/25/23 capsule (Florastor) benzonatate 100 mg capsule 100 mg PO TID PRN 05/22/23 06/25/23 calcium carbonate 200 mg calcium 200 mg PO DAILY 05/22/23 06/25/23 (500 mg) chewable tablet (Antacid (calcium carbonate)) guaifenesin 600 mg tablet, 600 mg PO BID PRN 05/22/23 06/25/23 extended release 12 hr (Mucinex) mirtazapine 30 mg tablet (Remeron) 30 mg PO DAILY 05/22/23 06/25/23 quetiapine 50 mg tablet (Seroquel) 50 mg PO BID dementia 05/22/23 06/25/23 sennosides 8.6 mg tablet (senna) 17.2 mg PO DAILY PRN Constipation 05/22/23 06/25/23 Previous Rx's Medication Instructions Recorded oxycodone 5 mg tablet 5 mg PO Q4H PRN pain #30 tabs 01/12/23 tramadol 50 mg tablet 50 mg PO TID PRN pain #90 tabs 04/23/23 Allergies Allergy/AdvReac Type Severity Reaction Status Date / Time Opioids - Morphine Analogues Allergy Severe Angioedema Verified 06/26/23 15:38 [facility] Disclaimer: The information contained in this section may have been updated after the patient was seen, as this information can be updated by other users. Medical History (Updated 07/25/23 @ 22:36 by Deo Aguilera MD) Acute hip pain C. difficile diarrhea Closed intertrochanteric fracture High blood pressure determined by examination Left hip pain No significant past medical history UTI (urinary tract infection) Surgical History (Updated 06/25/23 @ 14:00 by Navya Tripp APRN) History of appendectomy History of right hip replacement History of total right hip replacement Social History Smoking Status: Unknown if ever smoked alcohol intake: former substance use type: denies use current occupational status: retired Travel in the last 8 weeks: None household members: family housing: house marital status: education level: high school Hx Recent Travel: No sexually active: No ROS Obtained: Yes Systems reviewed as appropriate & no additional complaints ex cept as documented Physical Exam General General appearance: alert and in no apparent distress Head Head exam: atraumatic and normocephalic Eye Eye exam: Present PERRL ENT ENT exam: Present mucous membranes moist Neck Neck exam: Present normal inspection Chest Chest inspection: Present normal inspection and symmetric chest wall rise Respiratory Respiratory exam: Present normal lung sounds bilaterally; Absent respiratory distress Cardiovascular Cardiovascular exam: Present regular rate and normal rhythm Abdominal Exam Abdominal exam: Present soft; Absent tenderness Extremities Exam Extremities exam: Present normal inspection and other (Mild bilateral hip tenderness, 5 out of 5 strength at the bilateral hips, knee, ankles.) Neurological Exam Neurological exam: Present alert Psychiatric Psychiatric exam: Present normal affect Skin Skin exam: Present warm and dry Medical Decision Making Aman Inquiry Pt receiving controlled substance: No Vital Signs: 07/25/23 21:58 Temperature 98.1 F Temperature Source Oral Pulse Rate [Left Radial] 83 Respiratory Rate 18 Blood Pressure [Right Arm] 138/77 Blood Pressure Mean [Right Arm] 97 Blood Pressure Source [Right Arm] Automatic Cuff Blood Pressure Position [Right Arm] Supine 02 Sat by Pulse Oximetry 98 Oxygen Delivery Method Room Air Orders (Tests/Meds): ORDERS Category Date Time Status Femur XR left 2 views [XR femur LT 2V] Stat Exams 07/25/23 22:00 Taken Femur XR right 2 views [XR femur RT 2V] Stat Exams 07/25/23 22:00 Taken Pelvis XR 1-2 views [XR pelvis 1-2V] Stat Exams 07/25/23 22:00 Taken Medical Decision Narrative: In summary patient is 83-year-old female past medical history described above presents emergency department for evaluation of a low mechanism fall from minimal height. Patient is hemodynamically stable nontoxic-appearing upon arrival. Limited trauma survey will be conducted with plain films of the hip and femur as differential includes fracture, musculoskeletal strain, among others. CT imaging was considered however given mechanism and no signs of external trauma will be deferred. Plain films informally interpreted by me, no acute significantly displaced fracture or dislocation. Patient has preserved range of motion. Given this patient is appropriate for discharge at this time. Critical Care Critical Care Time Critical Care Time: No
[2023-07-25 22:02] VITALS: BP 138/77; PULSE 86; RESP 21; O2SAT 98
[2023-07-25 22:58] VITALS: BP 155/85; PULSE 80; RESP 20; O2SAT 98
[2023-07-25 23:01] VITALS: BP 159/86; PULSE 84; RESP 20; O2SAT 96
--- NOTE | 2023-07-25 23:13 | PC.NURSE ---
[facility] notified for transport back to [facility]
--- NOTE | 2023-07-25 23:14 | PC.NURSE ---
Report called to Karen at [facility].
[2023-07-25 23:56] VITALS: BP 159/86; PULSE 86; RESP 19; TEMP 36.8; O2SAT 97
== END 2023-07-25 23:45 ==
PROVIDERS: Emergency Provider Emergency Medicine; PCP Internal Medicine
DX: M25.551 Pain in right hip (principal); M25.552 Pain in left hip; W06.XXXA Fall from bed, initial encounter
CPT/HCPCS: 72170; 73552; 99284

== ENCOUNTER 2023-10-07 17:23 | Outpatient (CLI) | payer MEDICARE, MEDICAID, SELFPAY ==
[2023-10-07 18:35] LABS: Chloride 106 mmol/L (98-107); Sodium 141 mmol/L (136-145)
[2023-10-07 18:37] LABS: Alanine Aminotransferase 9 U/L (12-78); Alkaline Phosphatase 76 U/L (38-126); Aspartate Amino Transferase 20 U/L (14-36); Bilirubin,Total 0.7 mg/dl (0.2-1.3); Blood Urea Nitrogen 12 mg/dl (7-17); Carbon Dioxide 31 mmol/L (22.0-30.0); Estimated Glomerular Filt Rate 68 ml/min (>60); GFR (African American) 83 ML/MIN (>60)
[2023-10-07 18:38] LABS: Albumin Level 3.4 g/dl (3.5-5.0); Albumin/Globulin Ratio 1.1 (1.1-1.8); Calcium 9.3 mg/dl (8.4-10.2); Glucose 94 mg/dl (74-100); Total Protein,Serum 6.4 g/dl (6.3-8.2)
[2023-10-07 18:47] LABS: Basophils # 0.1 K/mm3 (0-0.2); Basophils % 0.8 % (0.1-2.0); Eosinophils # 0.2 K/mm3 (0.0-0.4); Eosinophils % 2.1 % (0.1-12.0); Hematocrit 35.6 % (37.0-47.0); Hemoglobin 11.4 g/dL (12.2-16.2); Lymphocytes % 28.8 % (10-50); Mean Corpuscular Hemoglobin 30.9 pg (27.0-31.2); Mean Corpuscular Volume 96.8 fl (81-99); Mean Platelet Volume 8.1 fl (7.4-10.4); Monocytes # 0.5 K/mm3 (0.1-1.0); Monocytes % 4.9 % (1.7-9.3); Neutrophils # 6.6 K/mm3 (1.8-7.8); Neutrophils % 63.4 % (37.0-80.0); Platelet Count 333 K/mm3 (142-424); Red Blood Count 3.68 M/mm3 (4.20-5.40); Red Cell Distribution Width 15.5 % (11.5-17.5); White Blood Count 10.5 K/mm3 (4.8-10.8)
== END 2023-10-07 23:59 | disposition home or self-care (01) ==
LOC: LAB.DROPOF 17:28
PROVIDERS: PCP Internal Medicine; Visit Provider Internal Medicine
DX: G30.9 Alzheimer's disease, unspecified; F41.9 Anxiety disorder, unspecified; E78.5 Hyperlipidemia, unspecified; I10 Essential (primary) hypertension; Z79.899 Other long term (current) drug therapy
CPT/HCPCS: 80053; 85025

== ENCOUNTER 2023-11-08 23:46 | Emergency (ER) | payer MEDICARE, MEDICAID, SELFPAY ==
[2023-11-08 23:17] VITALS: BMI 25.0
[2023-11-08 23:44] VITALS: BP 154/83; PULSE 88; RESP 16; TEMP 36.9; O2SAT 98; BMI 21.4
--- NOTE | 2023-11-08 23:47 | CT_ITS ---
PROCEDURE INFORMATION: Exam: CT Head Without Contrast Exam date and time: 11/09/2023 12:01 AM Age: 83 years old Clinical indication: Injury or trauma; Fall; Blunt trauma (contusions or hematomas); Additional info: Trauma, critical injury suspected TECHNIQUE: Imaging protocol: Computed tomography of the head without contrast. Radiation optimization: All CT scans at this facility use at least one of these dose optimization techniques: automated exposure control; mA and/or kV adjustment per patient size (includes targeted exams where dose is matched to clinical indication); or iterative reconstruction. COMPARISON: CT HEAD/BRAIN WO CON 04/12/2023 5:01 PM FINDINGS: Brain: Age-appropriate diffuse cerebral volume loss. No acute intracranial hemorrhage. No abnormal extra-axial fluid collection. No midline shift or mass effect. No acute large territory infarct. Chronic white matter changes, likely to be chronic small-vessel ischemic changes. Cerebral ventricles: Trace intraventricular fat within the anterior portion of both frontal horns, and scattered trace subarachnoid fat, new in comparison to 04/12/2023. Paranasal sinuses: Visualized sinuses are unremarkable. No fluid levels. Mastoid air cells: Visualized mastoid air cells are well-aerated. Bones: No acute osseous abnormality. Soft tissues: Unremarkable. IMPRESSION: 1. No acute intracranial hemorrhage or acute injury. 2. Trace intraventricular fat within the anterior portion of both frontal horns, and scattered trace subarachnoid fat, new in comparison to 04/12/2023. Unknown underlying cause. While new in comparison to the prior study, does not necessarily mean that this is an acute process. Unknown underlying cause, though has been described with rupture of intracranial dermoid cysts or intraspinal dermoids, after some spinal surgeries, as well as with certain kinds of trauma, particularly spinal trauma. Clinical significance is also unclear. In the acute setting, presence of fat and subarachnoid space can induce aseptic meningitis or obstruction of CSF flow. Long-term clinical significance is uncertain. Mucous retention cyst or polyp in the left maxillary sinus. Otherwise clear.
--- NOTE | 2023-11-08 23:47 | CT_ITS ---
PROCEDURE INFORMATION: Exam: CT Chest Without Contrast; Diagnostic Exam date and time: 11/09/2023 12:12 AM Age: 83 years old Clinical indication: Injury or trauma; Fall; Blunt trauma (contusions or hematomas) TECHNIQUE: Imaging protocol: Diagnostic computed tomography of the chest without contrast. Radiation optimization: All CT scans at this facility use at least one of these dose optimization techniques: automated exposure control; mA and/or kV adjustment per patient size (includes targeted exams where dose is matched to clinical indication); or iterative reconstruction. COMPARISON: CT CHEST WO CON 01/12/2023 3:51 AM FINDINGS: Lungs: Mild subsegmental atelectasis versus scarring at the lung bases. Pleural spaces: Unremarkable. No pneumothorax. No pleural effusion. Heart: Unremarkable. No cardiomegaly. No pericardial effusion. Lymph nodes: Unremarkable. No enlarged lymph nodes. Vasculature: The ascending thoracic aorta is dilated measuring 4.0 cm diameter. Bones/joints: Unremarkable. No acute fracture. The thoracic spine is reported separately. Soft tissues: Unremarkable. IMPRESSION: 1. No acute findings. 2. Mildly dilated ascending thoracic aorta measuring 4.0 cm.
--- NOTE | 2023-11-08 23:47 | CT_ITS ---
PROCEDURE INFORMATION: Exam: CT Thoracic Spine Without Contrast Exam date and time: 11/09/2023 12:06 AM Age: 83 years old Clinical indication: Injury or trauma; Fall; Blunt trauma (contusions or hematomas); Additional info: Fall, thoracic back pain TECHNIQUE: Imaging protocol: Computed tomography of the thoracic spine without contrast. Radiation optimization: All CT scans at this facility use at least one of these dose optimization techniques: automated exposure control; mA and/or kV adjustment per patient size (includes targeted exams where dose is matched to clinical indication); or iterative reconstruction. COMPARISON: CT THORACIC SPINE WO CON 01/12/2023 3:44 AM FINDINGS: Bones/joints: There is a mild S shaped scoliosis of the thoracic spine. There is diffuse mild degenerative disc disease. No acute fracture. No significant central canal or foraminal stenosis. There are significant degenerative changes of both sternoclavicular joints. Soft tissues: Unremarkable. Vasculature: The ascending thoracic aorta is dilated measuring 4 cm in diameter. Lungs: There is mild scarring versus atelectasis at the lung bases. IMPRESSION: No acute findings.
--- NOTE | 2023-11-08 23:47 | CT_ITS ---
PROCEDURE INFORMATION: Exam: CT Abdomen And Pelvis Without Contrast Exam date and time: 11/09/2023 12:15 AM Age: 83 years old Clinical indication: Injury or trauma; Fall; Blunt; Generalized TECHNIQUE: Imaging protocol: Computed tomography of the abdomen and pelvis without contrast. Radiation optimization: All CT scans at this facility use at least one of these dose optimization techniques: automated exposure control; mA and/or kV adjustment per patient size (includes targeted exams where dose is matched to clinical indication); or iterative reconstruction. COMPARISON: 1. CT ABDOMEN PELVIS WO CON 01/12/2023 3:[address] BONY PELVIS 04/12/2023 5:03 PM FINDINGS: Lungs: The chest is reported separately. Liver: Normal. No mass. Gallbladder and bile ducts: Normal. No calcified stones. No ductal dilation. Pancreas: Normal. No ductal dilation. Spleen: Normal. No splenomegaly. Adrenal glands: Normal. No mass. Kidneys and ureters: Normal. No hydronephrosis. Stomach and bowel: There are scattered colonic diverticuli without acute inflammation. There is mild rectal wall thickening and perirectal inflammation consistent with proctitis. No bowel obstruction. Appendix: No evidence of appendicitis. Intraperitoneal space: Unremarkable. No free air. No significant fluid collection. Vasculature: There is mild calcific atherosclerotic disease without aneurysmal dilation of the aorta. Lymph nodes: Unremarkable. No enlarged lymph nodes. Urinary bladder: Unremarkable as visualized. Reproductive: Soft tissue lesion in the right adnexa measures 3.6 x 4.1 x 4.7 cm. Bones/joints: Right total hip prosthesis is noted anatomic alignment. There is transfemoral nail fixation of the proximal left femur. Sacral Tarlov cyst is noted. No acute fracture. The lumbar spine is reported separately. Soft tissues: Unremarkable. IMPRESSION: 1. Findings consistent with proctitis. 2. No traumatic findings. 3. Stable right adnexal soft tissue lesion dating back to 01/12/2023. Further characterization with nonemergent pelvic ultrasound or MR imaging could be performed as clinically indicated.
--- NOTE | 2023-11-08 23:47 | CT_ITS ---
PROCEDURE INFORMATION: Exam: CT Lumbar Spine Without Contrast Exam date and time: 11/09/2023 12:09 AM Age: 83 years old Clinical indication: Injury or trauma; Fall; Blunt trauma (contusions or hematomas); Additional info: Trauma, critical injury suspected TECHNIQUE: Imaging protocol: Computed tomography of the lumbar spine without contrast. Radiation optimization: All CT scans at this facility use at least one of these dose optimization techniques: automated exposure control; mA and/or kV adjustment per patient size (includes targeted exams where dose is matched to clinical indication); or iterative reconstruction. COMPARISON: CT LUMBAR SPINE WO CON 01/12/2023 3:46 AM FINDINGS: Bones/joints: No acute fracture. Normal alignment. Severe degenerative disc disease at L4-L5 and L5-S1. Diffuse significant facet arthropathy. No significant disc bulge or herniation. No severe spinal canal stenosis. No significant neural foraminal narrowing. Soft tissues: Unremarkable. IMPRESSION: No acute findings.
--- NOTE | 2023-11-08 23:47 | CT_ITS ---
PROCEDURE INFORMATION: Exam: CT Cervical Spine Without Contrast Exam date and time: 11/09/2023 12:03 AM Age: 83 years old Clinical indication: Injury or trauma; Fall; Blunt trauma; Additional info: Trauma, critical injury suspected TECHNIQUE: Imaging protocol: Computed tomography of the cervical spine without contrast. Radiation optimization: All CT scans at this facility use at least one of these dose optimization techniques: automated exposure control; mA and/or kV adjustment per patient size (includes targeted exams where dose is matched to clinical indication); or iterative reconstruction. COMPARISON: CT CERVICAL SPINE WO CON 01/12/2023 3:42 AM FINDINGS: Bones: No acute fracture or subluxation. [id number] chronic degenerative changes without severe spinal stenosis. Lungs: Visualized lung apices are clear. Soft tissues: Visualized paravertebral soft tissues demonstrate no acute abnormality. IMPRESSION: No acute findings.
--- NOTE | 2023-11-08 23:47 | HMH.EDGENADL ---
Discharge Plan Disposition Patient Disposition: Home, Self-Care Prescriptions Prescriptions: No Action sennosides [senna] 8.6 mg tablet 17.2 mg PO DAILY PRN (Reason: Constipation) quetiapine [Seroquel] 50 mg tablet 50 mg PO BID Saccharomyces boulardii [Florastor] 250 mg capsule 250 mg PO DAILY mirtazapine [Remeron] 30 mg tablet 30 mg PO DAILY calcium carbonate [Antacid (calcium carbonate)] 200 mg calcium (500 mg) tablet,chewable 200 mg PO DAILY benzonatate 100 mg capsule 100 mg PO TID PRN (Reason: Sinus Symptoms) guaifenesin [Mucinex] 600 mg tablet extended release 12hr 600 mg PO BID PRN (Reason: Sinus Symptoms) acetaminophen 500 mg tablet 500 mg PO TID ondansetron HCl 4 mg Tablet 4 mg PO Q6H PRN (Reason: Nausea) oxycodone 5 mg tablet 5 mg PO Q4H PRN (Reason: pain) Qty: 30 0RF Referrals Follow up/Referrals: Provider,Referral, MD [Primary Care Provider] - See instructions Activity Restrictions/Add. Instructions Additional Instructions/Restrictions: Please follow-up with your primary care provider. Please return to the emergency department if you develop any new or worsening symptoms or become concerned for your health. Clinical Impressions Clinical Impression: Back pain Qualifiers: Back pain location: thoracic back pain Chronicity: acute Fall Qualifiers: Encounter type: initial encounter Qualified Code(s): W19.XXXA - Unspecified fall, initial encounter Discharge ED Provider: Salvatore Cleary General Adult HPI General Chief complaint: Fall Stated complaint: fall Time Seen by Provider: 11/08/23 23:46 History of Present Illness HPI narrative: 83-year-old female with history of severe dementia presents from nursing facility after a fall from standing. Fall was unwitnessed, no significant downtime. Patient intermittently has no complaints, then sometimes complains about her back and her hip. She does have a previous hip fracture couple years ago. History obtained from EMS as patient is unable to provide any significant past medical history. No reported blood thinner usage. EMS reports she was ambulatory on scene. Related Data Home Medications Medication Instructions Recorded Confirmed ondansetron HCl 4 mg tablet 4 mg PO Q6H PRN Nausea 01/12/23 11/09/23 Saccharomyces boulardii 250 mg 250 mg PO DAILY 05/22/23 11/09/23 capsule (Florastor) benzonatate 100 mg capsule 100 mg PO TID PRN Sinus Symptoms 05/22/23 11/09/23 calcium carbonate (Antacid 200 mg PO DAILY 05/22/23 11/09/23 (calcium carbonate)) guaifenesin 600 mg tablet, 600 mg PO BID PRN Sinus Symptoms 05/22/23 11/09/23 extended release 12 hr (Mucinex) mirtazapine 30 mg tablet (Remeron) 30 mg PO DAILY 05/22/23 11/09/23 quetiapine 50 mg tablet (Seroquel) 50 mg PO BID dementia 05/22/23 11/09/23 sennosides 8.6 mg tablet (senna) 17.2 mg PO DAILY PRN Constipation 05/22/23 11/09/23 acetaminophen 500 mg tablet 500 mg PO TID Pain 11/03/23 11/09/23 Previous Rx's Medication Instructions Recorded oxycodone 5 mg tablet 5 mg PO Q4H PRN pain #30 tabs 01/12/23 Allergies Allergy/AdvReac Type Severity Reaction Status Date / Time Opioids - Morphine Analogues Allergy Severe Angioedema Verified 11/03/23 14:33 [facility] Disclaimer: The information contained in this section may have been updated after the patient was seen, as this information can be updated by other users. Medical History Acute hip pain Left hip pain No significant past medical history UTI (urinary tract infection) C. difficile diarrhea Closed intertrochanteric fracture left 12/2022 High blood pressure determined by examination Surgical History History of right hip replacement History of total right hip replacement History of appendectomy Social History Smoking Status: Unknown if ever smoked alcohol intake: former substance use type: denies use current occupational status: retired Travel in the last 8 weeks: None household members: family housing: house marital status: education level: high school Hx Recent Travel: No sexually active: No ROS Obtained: Yes All systems reviewed & no additional complaints except as documented Physical Exam General General appearance: alert and in no apparent distress Head Head exam: atraumatic and normocephalic Eye Eye exam: Present normal appearance, PERRL and EOMI ENT ENT exam: Present normal oropharynx and normal external ear exam Neck Neck exam: Present normal inspection and full ROM Chest Chest inspection: Present normal inspection and symmetric chest wall rise; Absent tenderness Respiratory Respiratory exam: Present normal lung sounds bilaterally; Absent respiratory distress Cardiovascular Cardiovascular exam: Present regular rate and normal rhythm Abdominal Exam Abdominal exam: Present soft; Absent distention, tenderness or guarding Extremities Exam Extremities exam: Present normal inspection and full ROM; Absent tenderness, edema or joint swelling Back Exam Back exam: Present normal inspection and tenderness (Mild tenderness in the mid thoracic spine) Neurological Exam Neurological exam: Present alert and other (Oriented to self, at baseline per EMS); Absent motor sensory deficit Psychiatric Psychiatric exam: Present normal affect and normal mood Skin Skin exam: Present warm, dry and normal color Lymphatic Lymphatic Findings: no adenopathy Medical Decision Making Medical Records Medical records reviewed: Yes I reviewed the patient's medical records. Aman Inquiry Pt receiving controlled substance: No Aman was queried for this patient: No Vital Signs: 11/08/23 23:44 11/09/23 01:04 Temperature 98.4 F 98.4 F Temperature Source Oral Pulse Rate 90 Pulse Rate [Left] 88 Respiratory Rate 16 16 Blood Pressure 128/75 Blood Pressure [Right Arm] 154/83 H Blood Pressure Mean [Right Arm] 106 02 Sat by Pulse Oximetry 98 Oxygen Delivery Method Room Air Room Air Lab Data Lab results reviewed: Yes I reviewed the patient's lab results. Orders (Tests/Meds): ORDERS Category Date Time Status CT abdomen pelvis wo con Stat Cat Scan 11/08/23 23:[address] cervical spine wo con Stat Cat Scan 11/08/23 23:[address] chest wo con Stat Cat Scan 11/08/23 23:[address] head/brain wo con Stat Cat Scan 11/08/23 23:[address] lumbar spine wo con Stat Cat Scan 11/08/23 23:[address] thoracic spine wo con Stat Cat Scan 11/08/23 23:47 Completed Medical Decision Narrative: 83-year-old female history of severe dementia presents after an unwitnessed fall from standing without loss of consciousness. No reported blood thinners.. History was obtained interactive discussion with patient, EMS, nursing facility. On arrival, patient is afebrile, hemodynamically stable, oriented to self (baseline), moving all extremities spontaneously. Full physical exam performed and significant for mild tenderness to the mid thoracic spine, otherwise atraumatic exam. Differential includes but is not limited to intracranial trauma intrathoracic trauma intra-abdominal trauma spine trauma extremity trauma. Workup initiated including CT head, Noncon CTs of the chest abdomen pelvis and spines. On re-evaluation, patient [remains afebrile, HD stable.] Imaging independently interpreted by me and significant for no acute intracranial bleeding, no rib fractures spinal fractures or obvious intrathoracic or intra-abdominal trauma. Does show multiple chronic findings. See radiology read for full review of final results. Given patient history, exam and workup, patient's presentation most likely represents fall without acute traumatic injury. Patient was discharged in stable condition back to nursing facility. Procedures Risk/Benefits of Procedure(s) Were Explained: Yes Critical Care Critical Care Time Critical Care Time: No
[2023-11-09 01:04] VITALS: BP 128/75; PULSE 90; RESP 16; TEMP 36.9; O2SAT 98
--- NOTE | 2023-11-09 01:04 | PC.NURSE ---
[facility] called and informed patient is ready for return to [facility].
== END 2023-11-09 01:15 | disposition home or self-care (01) ==
PROVIDERS: Emergency Provider Emergency Medicine
DX: M54.6 Pain in thoracic spine (principal); W19.XXXA Unspecified fall, initial encounter; F03.90 Unspecified dementia, unspecified severity, without behavioral disturbance, psychotic disturbance, mood disturbance, and anxiety
CPT/HCPCS: 70450; 71250; 72125; 72128; 72131; 74176; 99285

== ENCOUNTER 2023-12-11 14:07 | Outpatient (CLI) | payer MEDICARE, MEDICAID, SELFPAY ==
--- NOTE | 2023-12-11 14:11 | US_ITS ---
PROCEDURE: US PELVIC CLINICAL INDICATION: RT ADREXAL MASS COMPARISON: CT CT ABDOMEN PELVIS WO CON from 01/12/[address] ABDOMEN PELVIS WO CON from 11/09/2023 FINDINGS: Transabdominal sonographic images of the pelvis were obtained. UTERUS: 5.0cm x 2.6 cmx 4.3 cm anteverted with a combined endometrial thickness of 5.2 mm. LEFT OVARY: Not visualized RIGHT OVARY: Consists of a solid, well-circumscribed mass measuring 3.5 cm x 5.5 cm x 3.7 cm. It has a heterogenous appearance. Doppler flow to the right ovary is seen. There is no fluid in the cul-de-sac. IMPRESSION: 1. Anteverted small uterus. The endometrium is thin at 5.2 mm. 2. The left ovary is not seen. 3. The right ovary consists of a solid-appearing, well-circumscribed mass measuring 5.5 cm. Similar in size when seen on CT scan in December 2022. Likely benign and could represent an old teratoma given its heterogenous appearance. 4. Suggest repeat scan in 6 months to confirm its benign nature and lack of growth. Dictated by: Rafael Martinez MD 12/12/2023 09:18 Rafael Martinez MD in [place] 12/12/2023 09:18
== END 2023-12-11 23:59 | disposition home or self-care (01) ==
LOC: RAD 14:07
PROVIDERS: PCP Family Medicine; Visit Provider Family Medicine
DX: E27.9 Disorder of adrenal gland, unspecified (principal)
CPT/HCPCS: 76856

== ENCOUNTER 2024-02-02 05:52 | Inpatient (IN) | payer MEDICARE, MEDICAID, SELFPAY ==
[2024-02-02] VITALS (20 sets, daily range): BP systolic 90–158; BP diastolic 57–90; PULSE 105–140; RESP 11–23; TEMP 36.5–38.2; O2SAT 91–97; BMI 25.2; BMI 23.6
--- NOTE | 2024-02-02 06:27 | CT_ITS ---
FINAL REPORT TECHNIQUE: Pre-and postcontrast images of the abdomen and pelvis were performed by computed tomography. Extensive 3-D reconstruction images were performed. A CTA was performed. This study was performed with techniques to keep radiation doses as low as reasonably achievable (ALARA). Individualized dose reduction techniques using automated exposure control or adjustment of mA and/or kV according to the patient''s size were employed. CLINICAL HISTORY: pain, ams COMPARISON: 11/09/2023 FINDINGS: ABDOMEN/PELVIS: Precontrast images demonstrate no evidence of nephrolithiasis. No adrenal masses are identified. The liver, spleen and pancreas are unremarkable. The gallbladder is present. There is a large amount of retained stool throughout the colon. Streak artifact is seen from right hip prosthesis. The uterus is retroverted. There are calcified phleboliths in the floor of the pelvis. There is diverticulosis of the descending and sigmoid colon without evidence of diverticulitis. CTA: The abdominal aorta is proper caliber. The SMA, celiac axis, and DEE DEE are patent. There is no significant stenosis or calcification. The renal arteries are patent bilaterally. The iliacs are unremarkable. IMPRESSION: Constipation. Descending and sigmoid diverticulosis. Reviewed, Interpreted and Dictated by Ilir Higgins MD Transcribed by Nikia Person Authenticated and [facility]
--- NOTE | 2024-02-02 06:27 | CT_ITS ---
FINAL REPORT TECHNIQUE: Axial images were obtained of the cervical spine by computed tomography. Coronal and sagittal reconstruction process performed. This study was performed with techniques to keep radiation doses as low as reasonably achievable (ALARA). Individualized dose reduction techniques using automated exposure control or adjustment of mA and/or kV according to the patient''s size were employed. CLINICAL HISTORY: altered mental status COMPARISON: 11/09/2023 FINDINGS: Cervical vertebrae show normal height. There is advanced disc space narrowing at C5-6 with posterior osteophyte formation. There is bilateral facet hypertrophy throughout the cervical spine, left greater than right. There is no malalignment. The facets are properly aligned. IMPRESSION: Hypertrophic change of degenerative disc disease, most evident at C5-6. Reviewed, Interpreted and Dictated by Ilir Higgins MD Transcribed by Nikia Person Authenticated and [facility]
--- NOTE | 2024-02-02 06:27 | CT_ITS ---
FINAL REPORT TECHNIQUE: The patient was injected with IV contrast. Axial images were obtained through the chest in a PE protocol. 3-D reconstruction images were also performed. Individualized dose reduction techniques using automated exposure control or adjustment of the MA and/or KV according to patient's size were employed. CLINICAL HISTORY: pain, ams COMPARISON: 11/09/2023 FINDINGS: Mediastinal vasculature is adequately opacified. No pulmonary artery filling defects are identified to suggest PE. There is mild ectasia of the ascending aorta measuring 3.8 cm. There is no axillary adenopathy. There is no hilar or mediastinal adenopathy. The heart size is normal. There is no pericardial or pleural effusion. There is bibasilar scarring. Minimal edema seen in the lung bases. No suspicious infiltrate or nodule is identified. IMPRESSION: Mild ectasia of the ascending aorta. Minimal edema in the lung bases. Reviewed, Interpreted and Dictated by Ilir Higgins MD Transcribed by Nikia Person Authenticated and [facility]
--- NOTE | 2024-02-02 06:31 | CT_ITS ---
FINAL REPORT TECHNIQUE: multiple axial CT images were performed from the foramen magnum to the vertex without enhancement. This study was performed with techniques to keep radiation doses as low as reasonably achievable (ALARA). Individualized dose reduction techniques using automated exposure control or adjustment of mA and/or kV according to the patient's size were employed. CLINICAL HISTORY: altered mental status COMPARISON: 11/09/2023 FINDINGS: There is moderate atrophy with proportional ventriculomegaly. There is periventricular white matter change likely related to small vessel disease. There is no evidence of hemorrhage. No masses are identified. No extra-axial fluid is seen. The sinuses are normal. IMPRESSION: Atrophy and chronic changes without acute process. Reviewed, Interpreted and Dictated by Ilir Higgins MD Transcribed by Nikia Person Authenticated and [facility]
--- NOTE | 2024-02-02 06:38 | HMH.EDGENADL ---
Discharge Plan Disposition Patient Disposition: Admitted Condition: Fair Clinical Impressions Clinical Impression: Sepsis, Urinary tract infection, Acidosis, lactic Discharge ED Provider: Jorge Boyle General Adult HPI <Ladan Bear MD - Last Filed: 02/02/24 07:16> General Chief complaint: Altered Mental Status Stated complaint: Seizure Time Seen by Provider: 02/02/24 06:27 History of Present Illness HPI narrative: 83-year-old female with a history of cognitive communication deficit, agitation, hypertension, Alzheimer disease, hyperlipidemia presents to the ER for concerns of possible [facility]. Patient resides at [facility]. She had a nurse this morning new to this patient who reports patient was alert and conversational when she woke her up early this morning to get dressed. Reportedly patient participated in getting dressed and even said good morning to them when they went in the room. After patient was dressed, she was pushed out into the hallway in her wheelchair so they could address the other patient. When they went back to check on her, she was reportedly shaking her arms and upper body. Unclear how long this lasted or if they tried to stop the patient from performing these motions. Patient was placed back in bed, they collected vitals, and immediately called EMS. Reportedly after this episode is when patient became altered, agitated, and yelling. No postictal period was described. Upon EMS arrival shortly after patient's episode, patient was yelling, has tremors, and was screaming help me and it hurts but cannot tell me what hurts. She responds to her name but is not answering questions. Reportedly no falls. EMS reports that [id number] glucose at the facility was 121, she did not receive any medications in route, she was on 2 L nasal cannula for mild hypoxia, does not wear oxygen at baseline. Related Data Home Medications ?Medication ?Instructions ?Recorded ?Confirmed ondansetron HCl 4 mg tablet 4 mg PO Q6H PRN Nausea 01/12/23 01/05/24 Saccharomyces boulardii 250 mg 250 mg PO DAILY 05/22/23 01/05/24 capsule (Florastor) benzonatate 100 mg capsule 100 mg PO TID PRN Sinus Symptoms 05/22/23 01/05/24 calcium carbonate (Antacid 200 mg PO DAILY 05/22/23 01/05/24 (calcium carbonate)) guaifenesin 600 mg tablet, 600 mg PO BID PRN Sinus Symptoms 05/22/23 01/05/24 extended release 12 hr (Mucinex) mirtazapine 30 mg tablet (Remeron) 30 mg PO DAILY 05/22/23 01/05/24 sennosides 8.6 mg tablet (senna) 17.2 mg PO DAILY PRN Constipation 05/22/23 01/05/24 acetaminophen 500 mg tablet 500 mg PO TID Pain 11/03/23 01/05/24 Previous Rx's ?Medication ?Instructions ?Recorded oxycodone 5 mg tablet 5 mg PO Q4H PRN pain #30 tabs 01/12/23 ferrous sulfate 325 mg (65 mg 325 mg PO DAILY #90 tabs 12/29/23 iron) tablet aluminum hydrox-magnesium carb 95 30 ml PO Q4HP #355 mL 01/05/24 mg-358 mg/15 mL oral suspension (Acid Gone Antacid) olanzapine 10 mg tablet 10 mg PO BID #60 tabs 01/05/24 venlafaxine 75 mg capsule,extended 75 mg PO DAILY #90 caps 01/05/24 release 24 hr Allergies Allergy/AdvReac Type Severity Reaction Status Date / Time Opioids - Morphine Analogues Allergy Severe Angioedema Verified 01/05/24 14:47 [facility] <Ladan Bear MD - Last Filed: 02/02/24 07:16> [facility] Disclaimer: The information contained in this section may have been updated after the patient was seen, as this information can be updated by other users. Medical History Acute hip pain Left hip pain No significant past medical history UTI (urinary tract infection) C. difficile diarrhea Closed intertrochanteric fracture left 12/2022 High blood pressure determined by examination Surgical History History of right hip replacement History of total right hip replacement History of appendectomy Social History Smoking Status: Never smoker alcohol intake: former substance use type: denies use current occupational status: retired Travel in the last 8 weeks: None household members: family housing: house marital status: education level: high school Hx Recent Travel: No sexually active: No <Ladan Bear MD - Last Filed: 02/02/24 07:16> ROS Obtained: Yes unobtainable due to mental status Physical Exam <Ladan Bear MD - Last Filed: 02/02/24 07:16> General General appearance: alert and other (Chronically ill-appearing) Comment: Yelling, appears to be in pain Head Head exam: atraumatic and normocephalic Eye Eye exam: Present PERRL and EOMI ENT ENT exam: Present mucous membranes moist and other (Edentulous) Neck Neck exam: Present normal inspection and full ROM Chest Chest inspection: Present symmetric chest wall rise Respiratory Respiratory exam: Present normal lung sounds bilaterally; Absent respiratory distress, wheezes or stridor Cardiovascular Cardiovascular exam: Present normal rhythm and tachycardia Abdominal Exam Abdominal exam: Present soft; Absent distention or tenderness External exam: Present normal external exam Extremities Exam Extremities exam: Present full ROM; Absent tenderness or joint swelling Back Exam Back exam: Present other (No significant sacral skin breakdown) Neurological Exam Neurological exam: Present alert; Absent oriented X3 (Not answering questions) or motor sensory deficit (Responding to stimuli equally in all extremities, no localizing deficits appreciated on exam though she will only occasionally follow commands) Expanded Neurological Exam Coma scale eye opening: Spontaneous Coma scale motor response: Withdraws to pain Coma scale verbal response: Inappropriate Coma scale total: 11 Psychiatric Psychiatric exam: Present normal affect and normal mood Skin Skin exam: Present warm and dry <Jorge Boyle MD - Last Filed: 02/02/24 10:33> Expanded Neurological Exam Coma scale total: 11 Medical Decision Making <Ladan Bear MD - Last Filed: 02/02/24 07:16> Medical Records Medical records reviewed: Yes I reviewed the patient's medical records. MR Comment: Most recent hospitalist admission was 1 year ago after a fall. At that time she was being treated for UTI and C. difficile. Patient was treated for comminuted left intertrochanteric fracture at that time. Aman Inquiry Pt receiving controlled substance: No Vital Signs: 02/02/24 05:54 02/02/24 06:23 02/02/24 06:31 Temperature 98.8 F Temperature Source Rectal Pulse Rate 121 H 115 H Pulse Rate [Right] 118 H Respiratory Rate 23 Blood Pressure 90/64 L 90/57 L Blood Pressure [Right Arm] 90/64 L Blood Pressure Mean 69 66 Blood Pressure Mean [Right Arm] 72 Blood Pressure Source Blood Pressure Source [Right Arm] Automatic Cuff Blood Pressure Position Blood Pressure Position [Right Arm] Supine 02 Sat by Pulse Oximetry 91 L 94 L 93 L Oxygen Delivery Method Nasal Cannula Oxygen Flow Rate (LPM) 2 02/02/24 07:00 02/02/24 08:01 02/02/24 08:30 Temperature Temperature Source Pulse Rate 105 H 130 H 131 H Pulse Rate [Right] Respiratory Rate 13 11 L Blood Pressure 140/90 127/84 125/76 Blood Pressure [Right Arm] Blood Pressure Mean 98 96 99 Blood Pressure Mean [Right Arm] Blood Pressure Source Blood Pressure Source [Right Arm] Blood Pressure Position Blood Pressure Position [Right Arm] 02 Sat by Pulse Oximetry 92 L 95 96 Oxygen Delivery Method Oxygen Flow Rate (LPM) 02/02/24 09:01 02/02/24 09:30 02/02/24 10:01 Temperature Temperature Source Pulse Rate 131 H Pulse Rate [Right] Respiratory Rate 16 14 17 Blood Pressure 106/87 L 119/84 109/61 L Blood Pressure [Right Arm] Blood Pressure Mean 90 96 77 Blood Pressure Mean [Right Arm] Blood Pressure Source Blood Pressure Source [Right Arm] Blood Pressure Position Blood Pressure Position [Right Arm] 02 Sat by Pulse Oximetry 93 L Oxygen Delivery Method Oxygen Flow Rate (LPM) 02/02/24 10:12 02/02/24 10:14 Temperature 97.8 F Temperature Source Oral Pulse Rate 131 H Pulse Rate [Right] Respiratory Rate 16 16 Blood Pressure 122/80 122/80 Blood Pressure [Right Arm] Blood Pressure Mean 94 Blood Pressure Mean [Right Arm] Blood Pressure Source Automatic Cuff Blood Pressure Source [Right Arm] Blood Pressure Position Sitting Blood Pressure Position [Right Arm] 02 Sat by Pulse Oximetry Oxygen Delivery Method Room Air Oxygen Flow Rate (LPM) Lab Data Lab Results 02/02/24 06:27: WBC 12.3 H, RBC 3.47 L, Hgb 11.2 L, Hct 35.7 L, MCV 102.9 H, MCH 32.2 H, MCHC 31.3 L, RDW 16.2, Plt Count 346, MPV 8.2, Neut % (Auto) 62.3, Lymph % (Auto) 31.7, [place] % (Auto) 4.1, Eos % (Auto) 1.0, Baso % (Auto) 0.9, Neut # (Auto) 7.7, Lymph # (Auto) 3.9, [place] # (Auto) 0.5, Eos # (Auto) 0.1, Baso # (Auto) 0.1, Sodium 141, Potassium 4.1, Chloride 110 H, Carbon Dioxide 24, Anion Gap 11.1, BUN 20 H, Creatinine 0.90, Estimated GFR 60, Est GFR ( Amer) 72, Glucose 117 H, Lactate 3.6 H, Calcium 8.9, Total Bilirubin 0.5, AST 33, ALT 29, Alkaline Phosphatase 98, Troponin I < 0.01, Total Protein 7.1, Albumin 3.9, Globulin 3.2, Albumin/Globulin Ratio 1.2, Lipase 109, TSH 2.69, Acetaminophen < 10 L, Plasma/Serum Alcohol < 10 02/02/24 06:35: Urine Color Yellow, Urine Appearance Cloudy, Urine pH 6.0, Ur Specific [place] >= 1.030, Urine Protein 1+, Urine Glucose (UA) Negative, Urine Ketones Negative, Urine Blood 1+, Urine Nitrate Positive, Urine Bilirubin Negative, Urine Urobilinogen 0.2, Ur Leukocyte Esterase 1+ A, Urine RBC 5-10, Urine WBC 10-20, Ur Squamous Epith Cells 3-5, Urine Bacteria 4+, Urine Opiates Screen Negative, Urine Methadone Screen Negative, Ur Barbituates Screen Negative, Ur Phencyclidine Scrn Negative, Ur Amphetamines Screen Negative, U Benzodiazepines Scrn Negative, Urine Cocaine Screen Negative, U Marijuana (THC) Screen Negative 02/02/24 06:55: VBG pH 7.39, VBG pCO2 38.4, VBG pO2 114.9 H, VBG HCO3 22.5 L, VBG Total CO2 23.6, VBG O2 Saturation 98.3 H, VBG Base Excess -2.6 L, VBG Lactic Acid 4.1 H 02/02/24 06:27 02/02/24 06:27 Orders (Tests/Meds): ED MEDICATIONS Generic Name Dose Route Start Last Admin Trade Name Freq PRN Reason Stop Dose Admin Acetaminophen 650 mg 02/02/24 10:20 Acetaminophen 325mg Tab PO 03/03/24 10:19 Q6HP PRN Fever or Mild Pain (1-3) Docusate Sodium 10 ml 02/02/24 21:00 Docusate Sodium 10 Ml/Udc Udc PO 03/03/24 20:59 BID JASPER Meropenem 1 gm/ Sodium 100 mls @ 100 mls/hr 02/02/24 13:00 Chloride IV 02/12/24 12:59 Q12H JASPER Sodium Chloride 1,000 mls @ 100 mls/hr 02/02/24 10:30 Sod Chlor 0.9% 1000ml Bag IV 02/03/24 10:29 .Q10H JASPER Vancomycin HCl 1,000 mg/ 250 mls @ 125 mls/hr 02/02/24 11:00 Sodium Chloride IV 02/12/24 10:59 Q24H JASPER Ondansetron HCl 4 mg 02/02/24 10:20 Ondansetron 4mg/2ml Vial IV 03/03/24 10:19 Q6HP PRN Nausea Pantoprazole Sodium 40 mg 02/02/24 21:00 Pantoprazole 40mg Vial IV 03/03/24 20:59 HS [facility] Sennosides 8.6 mg 02/02/24 21:00 Senna 8.6mg Tablet PO 03/03/24 20:59 BID JASPER Sodium Chloride 10 ml 02/02/24 10:16 Sodium Chloride 0.9% 10ml Flush Syringe IV 03/03/24 10:15 NEEDED PRN Maintain IV Site Sodium Chloride 10 ml 02/02/24 10:20 Sodium Chloride 0.9% 10ml Vial IV 03/03/24 10:19 NEEDED PRN dilute protonix Discontinued Medications Generic Name Dose Route Start Last Admin Trade Name Freq PRN Reason Stop Dose Admin Piperacillin Sod/Tazobactam 100 mls @ 200 mls/hr 02/02/24 06:55 02/02/24 07:01 Sod 4.5 gm/ Sodium Chloride IV 02/02/24 07:24 200 mls/hr ONCE ONE Administration Lactated Ringer's 1,000 mls @ 999 mls/hr 02/02/24 06:55 02/02/24 07:01 Lactated Ringer's 1000 Ml Bag IV 02/02/24 07:55 999 mls/hr .Q1H1M ONE Administration Lactated Ringer's 900 mls @ 999 mls/hr 02/02/24 07:15 Lactated Ringer's 1000 Ml Bag IV 02/02/24 08:09 .Q55M ONE Iopamidol 85 ml 02/02/24 07:25 02/02/24 07:26 Iopamidol-370 (76%);100ml Bottle IV 02/02/24 07:26 85 ml ONCE ONE Administration Lorazepam 0.5 mg 02/02/24 06:32 02/02/24 06:48 Lorazepam 2mg/Ml Vial IV 02/02/24 06:33 0.5 mg ONCE ONE Administration Miscellaneous 1 each 02/02/24 07:00 02/02/24 08:31 Vancomycin Consult Request NOTAPPLIC 03/03/24 06:59 1 each CONSULT PHARMACY [facility] Administration Miscellaneous 1 each 02/02/24 10:15 Vancomycin Consult Request NOTAPPLIC 02/09/24 10:14 CONSULT PHARMACY [facility] Sodium Chloride 10 ml 02/02/24 06:32 Sodium Chloride 0.9% 10ml Vial IV 03/03/24 06:31 NEEDED PRN to Dilute Lorazepam inj Sodium Chloride 50 ml 02/02/24 07:25 02/02/24 07:26 0.9 % Sodium Chloride 50 Ml Vial IV 02/02/24 07:26 50 ml ONCE ONE Administration Sodium Chloride 10 ml 02/02/24 07:25 02/02/24 07:26 Sodium Chloride 0.9% 10ml Syr (Rad Only) IV 03/03/24 07:24 10 ml NEEDED PRN Administration Maintain IV Site ORDERS Category Date Time Status CT angio abdomen pelvis Stat Cat Scan 02/02/24 06:[address] angio chest - dissection Stat Cat Scan 02/02/24 06:[address] cervical spine wo con Stat Cat Scan 02/02/24 06:[address] head/brain wo con Stat Cat Scan 02/02/24 06:31 Completed Acetaminophen Stat Lab 02/02/24 06:27 Completed Complete Blood Count Auto Diff Stat Lab 02/02/24 06:27 Completed Comprehensive Metabolic Panel Stat Lab 02/02/24 06:27 Completed Drug Screen,Urine Stat Lab 02/02/24 06:35 Completed Ethyl Alcohol Stat Lab 02/02/24 06:27 Completed Lactic Acid Stat Lab 02/02/24 06:27 Completed Lipase Stat Lab 02/02/24 06:27 Completed Thyroid Stimulating Hormone Stat Lab 02/02/24 06:27 Completed Troponin I Q3H Lab 02/02/24 12:30 Ordered Troponin I Stat Lab 02/02/24 06:27 Completed Urinalysis and Microscopic Stat Lab 02/02/24 06:35 Completed Blood Culture Stat Micro 02/02/24 06:32 Received Urine Culture Stat Micro 02/02/24 06:35 Received VBG [Venous Blood Gas] Stat RT 02/02/24 06:55 Completed Medical Decision Narrative: In summary, this 83-year-old female presents to the emergency department today with concerns of seizure-like activity, agitation, altered mental status. On initial evaluation patient is tachycardic, borderline hypotensive, agitated, GCS 11, no localizing neurologic deficits, responds equally to stimuli in all extremities. Differential diagnosis includes but is not limited to seizure, seizure-like activity, agitated delirium, patient does meet criteria for sepsis so she is receiving broad-spectrum antibiotics with vancomycin, Zosyn, as well as IV fluids, since patient is complaining of pain but will not localize it I considered possibility of ACS, dissection, mesenteric ischemia, urinary tract infection, pneumonia, pneumothorax, renal calculus, muscle spasm, among others. Based on these concerns, I ordered broad workup including CT imaging of the head, C-spine, chest, abdomen, pelvis, serum labs, cardiac workup, VBG, urine studies. ECG personally interpreted demonstrates sinus tachycardia, short [place], no delta wave, normal axis, normal QTc, no STEMI. Patient received LR, vancomycin, Zosyn, low-dose Ativan for treatment. Ativan was selected for patient's agitation since there was concern for seizure activity. Labs personally reviewed demonstrate leukocytosis, WBC 12.3, mild anemia with hemoglobin 11.2, platelets normal at 346, VBG with pH 7.39, lactic on VBG 4.1, patient is already receiving IV fluids, lactic on chemistry 3.6. No actionable electrolyte abnormality, mild prerenal azotemia, initial troponin undetectably low at less than 0.01, UA positive for nitrites and leukocyte esterase on dipstick, micro pending. This is consistent with urinary tract infection, patient is already receiving broad-spectrum antibiotics. Imaging and additional labs pending at the time of physician handoff, patient handed off to Dr. Boyle for further management and disposition pending tox labs and radiology studies. <Jorge Boyle MD - Last Filed: 02/02/24 10:33> Vital Signs: 02/02/24 05:54 02/02/24 06:23 02/02/24 06:31 Temperature 98.8 F Temperature Source Rectal Pulse Rate 121 H 115 H Pulse Rate [Right] 118 H Respiratory Rate 23 Blood Pressure 90/64 L 90/57 L Blood Pressure [Right Arm] 90/64 L Blood Pressure Mean 69 66 Blood Pressure Mean [Right Arm] 72 Blood Pressure Source Blood Pressure Source [Right Arm] Automatic Cuff Blood Pressure Position Blood Pressure Position [Right Arm] Supine 02 Sat by Pulse Oximetry 91 L 94 L 93 L Oxygen Delivery Method Nasal Cannula Oxygen Flow Rate (LPM) 2 02/02/24 07:00 02/02/24 08:01 02/02/24 08:30 Temperature Temperature Source Pulse Rate 105 H 130 H 131 H Pulse Rate [Right] Respiratory Rate 13 11 L Blood Pressure 140/90 127/84 125/76 Blood Pressure [Right Arm] Blood Pressure Mean 98 96 99 Blood Pressure Mean [Right Arm] Blood Pressure Source Blood Pressure Source [Right Arm] Blood Pressure Position Blood Pressure Position [Right Arm] 02 Sat by Pulse Oximetry 92 L 95 96 Oxygen Delivery Method Oxygen Flow Rate (LPM) 02/02/24 09:01 02/02/24 09:30 02/02/24 10:01 Temperature Temperature Source Pulse Rate 131 H Pulse Rate [Right] Respiratory Rate 16 14 17 Blood Pressure 106/87 L 119/84 109/61 L Blood Pressure [Right Arm] Blood Pressure Mean 90 96 77 Blood Pressure Mean [Right Arm] Blood Pressure Source Blood Pressure Source [Right Arm] Blood Pressure Position Blood Pressure Position [Right Arm] 02 Sat by Pulse Oximetry 93 L Oxygen Delivery Method Oxygen Flow Rate (LPM) 02/02/24 10:12 02/02/24 10:14 Temperature 97.8 F Temperature Source Oral Pulse Rate 131 H Pulse Rate [Right] Respiratory Rate 16 16 Blood Pressure 122/80 122/80 Blood Pressure [Right Arm] Blood Pressure Mean 94 Blood Pressure Mean [Right Arm] Blood Pressure Source Automatic Cuff Blood Pressure Source [Right Arm] Blood Pressure Position Sitting Blood Pressure Position [Right Arm] 02 Sat by Pulse Oximetry Oxygen Delivery Method Room Air Oxygen Flow Rate (LPM) Lab Data Lab Results 02/02/24 06:27: WBC 12.3 H, RBC 3.47 L, Hgb 11.2 L, Hct 35.7 L, MCV 102.9 H, MCH 32.2 H, MCHC 31.3 L, RDW 16.2, Plt Count 346, MPV 8.2, Neut % (Auto) 62.3, Lymph % (Auto) 31.7, [place] % (Auto) 4.1, Eos % (Auto) 1.0, Baso % (Auto) 0.9, Neut # (Auto) 7.7, Lymph # (Auto) 3.9, [place] # (Auto) 0.5, Eos # (Auto) 0.1, Baso # (Auto) 0.1, Sodium 141, Potassium 4.1, Chloride 110 H, Carbon Dioxide 24, Anion Gap 11.1, BUN 20 H, Creatinine 0.90, Estimated GFR 60, Est GFR ( Amer) 72, Glucose 117 H, Lactate 3.6 H, Calcium 8.9, Total Bilirubin 0.5, AST 33, ALT 29, Alkaline Phosphatase 98, Troponin I < 0.01, Total Protein 7.1, Albumin 3.9, Globulin 3.2, Albumin/Globulin Ratio 1.2, Lipase 109, TSH 2.69, Acetaminophen < 10 L, Plasma/Serum Alcohol < 10 02/02/24 06:35: Urine Color Yellow, Urine Appearance Cloudy, Urine pH 6.0, Ur Specific [place] >= 1.030, Urine Protein 1+, Urine Glucose (UA) Negative, Urine Ketones Negative, Urine Blood 1+, Urine Nitrate Positive, Urine Bilirubin Negative, Urine Urobilinogen 0.2, Ur Leukocyte Esterase 1+ A, Urine RBC 5-10, Urine WBC 10-20, Ur Squamous Epith Cells 3-5, Urine Bacteria 4+, Urine Opiates Screen Negative, Urine Methadone Screen Negative, Ur Barbituates Screen Negative, Ur Phencyclidine Scrn Negative, Ur Amphetamines Screen Negative, U Benzodiazepines Scrn Negative, Urine Cocaine Screen Negative, U Marijuana (THC) Screen Negative 02/02/24 06:55: VBG pH 7.39, VBG pCO2 38.4, VBG pO2 114.9 H, VBG HCO3 22.5 L, VBG Total CO2 23.6, VBG O2 Saturation 98.3 H, VBG Base Excess -2.6 L, VBG Lactic Acid 4.1 H Orders (Tests/Meds): ED MEDICATIONS Generic Name Dose Route Start Last Admin Trade Name Freq PRN Reason Stop Dose Admin Acetaminophen 650 mg 02/02/24 10:20 Acetaminophen 325mg Tab PO 03/03/24 10:19 Q6HP PRN Fever or Mild Pain (1-3) Docusate Sodium 10 ml 02/02/24 21:00 Docusate Sodium 10 Ml/Udc Udc PO 03/03/24 20:59 BID JASPER Meropenem 1 gm/ Sodium 100 mls @ 100 mls/hr 02/02/24 13:00 Chloride IV 02/12/24 12:59 Q12H JASPER Sodium Chloride 1,000 mls @ 100 mls/hr 02/02/24 10:30 Sod Chlor 0.9% 1000ml Bag IV 02/03/24 10:29 .Q10H JASPER Vancomycin HCl 1,000 mg/ 250 mls @ 125 mls/hr 02/02/24 11:00 Sodium Chloride IV 02/12/24 10:59 Q24H JASPER Ondansetron HCl 4 mg 02/02/24 10:20 Ondansetron 4mg/2ml Vial IV 03/03/24 10:19 Q6HP PRN Nausea Pantoprazole Sodium 40 mg 02/02/24 21:00 Pantoprazole 40mg Vial IV 03/03/24 20:59 HS JASPER Sennosides 8.6 mg 02/02/24 21:00 Senna 8.6mg Tablet PO 03/03/24 20:59 BID JASPER Sodium Chloride 10 ml 02/02/24 10:16 Sodium Chloride 0.9% 10ml Flush Syringe IV 03/03/24 10:15 NEEDED PRN Maintain IV Site Sodium Chloride 10 ml 02/02/24 10:20 Sodium Chloride 0.9% 10ml Vial IV 03/03/24 10:19 NEEDED PRN dilute protonix Discontinued Medications Generic Name Dose Route Start Last Admin Trade Name Aaronq PRN Reason Stop Dose Admin Piperacillin Sod/Tazobactam 100 mls @ 200 mls/hr 02/02/24 06:55 02/02/24 07:01 Sod 4.5 gm/ Sodium Chloride IV 02/02/24 07:24 200 mls/hr ONCE ONE Administration Lactated Ringer's 1,000 mls @ 999 mls/hr 02/02/24 06:55 02/02/24 07:01 Lactated Ringer's 1000 Ml Bag IV 02/02/24 07:55 999 mls/hr .Q1H1M ONE Administration Lactated Ringer's 900 mls @ 999 mls/hr 02/02/24 07:15 Lactated Ringer's 1000 Ml Bag IV 02/02/24 08:09 .Q55M ONE Iopamidol 85 ml 02/02/24 07:25 02/02/24 07:26 Iopamidol-370 (76%);100ml Bottle IV 02/02/24 07:26 85 ml ONCE ONE Administration Lorazepam 0.5 mg 02/02/24 06:32 02/02/24 06:48 Lorazepam 2mg/Ml Vial IV 02/02/24 06:33 0.5 mg ONCE ONE Administration Miscellaneous 1 each 02/02/24 07:00 02/02/24 08:31 Vancomycin Consult Request NOTAPPLIC 03/03/24 06:59 1 each CONSULT PHARMACY [facility] Administration Miscellaneous 1 each 02/02/24 10:15 Vancomycin Consult Request NOTAPPLIC 02/09/24 10:14 CONSULT PHARMACY [facility] Sodium Chloride 10 ml 02/02/24 06:32 Sodium Chloride 0.9% 10ml Vial IV 03/03/24 06:31 NEEDED PRN to Dilute Lorazepam inj Sodium Chloride 50 ml 02/02/24 07:25 02/02/24 07:26 0.9 % Sodium Chloride 50 Ml Vial IV 02/02/24 07:26 50 ml ONCE ONE Administration Sodium Chloride 10 ml 02/02/24 07:25 02/02/24 07:26 Sodium Chloride 0.9% 10ml Syr (Rad Only) IV 03/03/24 07:24 10 ml NEEDED PRN Administration Maintain IV Site ORDERS Category Date Time Status CT angio abdomen pelvis Stat Cat Scan 02/02/24 06:[address] angio chest - dissection Stat Cat Scan 02/02/24 06:[address] cervical spine wo con Stat Cat Scan 02/02/24 06:[address] head/brain wo con Stat Cat Scan 02/02/24 06:31 Completed Acetaminophen Stat Lab 02/02/24 06:27 Completed Complete Blood Count Auto Diff Stat Lab 02/02/24 06:27 Completed Comprehensive Metabolic Panel Stat Lab 02/02/24 06:27 Completed Drug Screen,Urine Stat Lab 02/02/24 06:35 Completed Ethyl Alcohol Stat Lab 02/02/24 06:27 Completed Lactic Acid Stat Lab 02/02/24 06:27 Completed Lipase Stat Lab 02/02/24 06:27 Completed Thyroid Stimulating Hormone Stat Lab 02/02/24 06:27 Completed Troponin I Q3H Lab 02/02/24 12:30 Ordered Troponin I Stat Lab 02/02/24 06:27 Completed Urinalysis and Microscopic Stat Lab 02/02/24 06:35 Completed Blood Culture Stat Micro 02/02/24 06:32 Received Urine Culture Stat Micro 02/02/24 06:35 Received VBG [Venous Blood Gas] Stat RT 02/02/24 06:55 Completed Medical Decision Narrative: In summary, this 83-year-old female presents to the emergency department today with concerns of seizure-like activity, agitation, altered mental status. On initial evaluation patient is tachycardic, borderline hypotensive, agitated, GCS 11, no localizing neurologic deficits, responds equally to stimuli in all extremities. Differential diagnosis includes but is not limited to seizure, seizure-like activity, agitated delirium, patient does meet criteria for sepsis so she is receiving broad-spectrum antibiotics with vancomycin, Zosyn, as well as IV fluids, since patient is complaining of pain but will not localize it I considered possibility of ACS, dissection, mesenteric ischemia, urinary tract infection, pneumonia, pneumothorax, renal calculus, muscle spasm, among others. Based on these concerns, I ordered broad workup including CT imaging of the head, C-spine, chest, abdomen, pelvis, serum labs, cardiac workup, VBG, urine studies. ECG personally interpreted demonstrates sinus tachycardia, short [place], no delta wave, normal axis, normal QTc, no STEMI. Patient received LR, vancomycin, Zosyn, low-dose Ativan for treatment. Ativan was selected for patient's agitation since there was concern for seizure activity. Labs personally reviewed demonstrate leukocytosis, WBC 12.3, mild anemia with hemoglobin 11.2, platelets normal at 346, VBG with pH 7.39, lactic on VBG 4.1, patient is already receiving IV fluids, lactic on chemistry 3.6. No actionable electrolyte abnormality, mild prerenal azotemia, initial troponin undetectably low at less than 0.01, UA positive for nitrites and leukocyte esterase on dipstick, micro pending. This is consistent with urinary tract infection, patient is already receiving broad-spectrum antibiotics. Imaging and additional labs pending at the time of physician handoff, patient handed off to Dr. Boyle for further management and disposition pending tox labs and radiology studies. [place]: I assumed primary responsibility for this patient after signout from previous physician. On my evaluation, patient intermittently yelling out in pain, unable to explain where her pain is. Appears to be in no acute distress. Hypotensive, tachycardic, vancomycin and Zosyn added. Fluid bolus was added as well. Nonactionable chemistry with normal LFTs, but lactate elevated at 3.6. Thyroid studies normal. Acetaminophen and alcohol levels negative. Initial troponin negative. White count 12.3 UA with concern for UTI with blood, nitrates, leukocyte Estrace and bacteria. VBG with normal pH nonactionable overall. Patient hypotensive, fluid bolus improved. On repeat evaluation, patient's BP 122/80, heart rate in the low 100s. CT scans of the head, chest, abdomen and pelvis independently interpreted and without acute abnormality. Because patient likely developing sepsis given white count, lactate, urinary tract infection, deemed appropriate for inpatient management. Hospitalist was contacted and case was discussed at length, patient to be admitted for further definitive management. Critical Care <Ladan Bear MD - Last Filed: 02/02/24 07:16> Critical Care Time Critical Care Time: Yes Attestation: On 02/02/24, the high probability of a clinically significant, sudden or life threatening deterioration of the following system(s) (cardiac, respiratory) required my full and direct attention, intervention and personal management. The time I documented below is in addition to time spent performing reported procedures but includes the following listed in this critical care notation. Total Time Total Critical Care Time: 35 <Jorge Boyle MD - Last Filed: 02/02/24 10:33> Critical Care Time Critical Care Time: Yes Attestation: On 02/02/24, the high probability of a clinically significant, sudden or life threatening deterioration of the following system(s) required my full and direct attention, intervention and personal management. The time I documented below is in addition to time spent performing reported procedures but includes the following listed in this critical care notation. Total Time Total Critical Care Time: 60
[2024-02-02 06:44] LABS: Microscopic, Urine URINE MICROSCOPIC (MICROSCOPIC)
[2024-02-02 06:44] LABS: Basophils # 0.1 K/mm3 (0-0.2); Basophils % 0.9 % (0.1-2.0); Eosinophils # 0.1 K/mm3 (0.0-0.4); Hematocrit 35.7 % (37.0-47.0); Hemoglobin 11.2 g/dL (12.2-16.2); Lymphocytes # 3.9 K/mm3 (0.7-4.5); Lymphocytes % 31.7 % (10-50); Mean Corpuscular HGB Conc 31.3 g/dL (31.8-35.4); Mean Corpuscular Hemoglobin 32.2 pg (27.0-31.2); Mean Corpuscular Volume 102.9 fl (81-99); Mean Platelet Volume 8.2 fl (7.4-10.4); Monocytes # 0.5 K/mm3 (0.1-1.0); Monocytes % 4.1 % (1.7-9.3); Neutrophils # 7.7 K/mm3 (1.8-7.8); Neutrophils % 62.3 % (37.0-80.0); Platelet Count 346 K/mm3 (142-424); Red Blood Count 3.47 M/mm3 (4.20-5.40); Red Cell Distribution Width 16.2 % (11.5-17.5); White Blood Count 12.3 K/mm3 (4.8-10.8)
[2024-02-02 06:45] LABS: Albumin Level 3.9 g/dl (3.5-5.0); Chloride 110 mmol/L (98-107); Potassium 4.1 mmoL/L (3.5-5.1); Sodium 141 mmol/L (136-145)
[2024-02-02 06:47] LABS: Anion Gap 11.1 mEq/L (5-15); Blood Urea Nitrogen 20 mg/dl (7-17); Carbon Dioxide 24 mmol/L (22.0-30.0); Estimated Glomerular Filt Rate 60 ml/min (>60); GFR (African American) 72 ML/MIN (>60)
[2024-02-02 06:48] LABS: Alanine Aminotransferase 29 U/L (12-78); Albumin/Globulin Ratio 1.2 (1.1-1.8); Alkaline Phosphatase 98 U/L (38-126); Aspartate Amino Transferase 33 U/L (14-36); Bilirubin,Total 0.5 mg/dl (0.2-1.3); Calcium 8.9 mg/dl (8.4-10.2); Globulin 3.2 g/dL (1.3-3.2); Glucose 117 mg/dl (74-100); Total Protein,Serum 7.1 g/dl (6.3-8.2)
[2024-02-02] MEDS: LORazepam 2MG/ML VIAL 0.5 MG IV (06:48)
[2024-02-02 06:49] LABS: Acetaminophen < 10 ug/ml (10-30)
[2024-02-02 07:00] LABS: Appearance,Urine CLOUDY (Clear); Bilirubin,Urine Negative (Negative); Blood, Urine 1+ (Negative); Color,Urine YELLOW (Yellow); Glucose,Urine (UA) Negative (Negative); Ketones,Urine Negative (Negative); Leukocyte Esterase,Urine 1+ (Negative); Nitrate,Urine POSITIVE (Negative); Protein,Urine 1+ (Negative); Specific Gravity, Urine >= 1.030 (1.005-1.030); Urobilinogen,Urine 0.2 EU/dl (0.2)
[2024-02-02 07:00] LABS: VBG Base Excess -2.6 mmol/L (-2.4-2.3); VBG HCO3 22.5 mmol/L (23-30); VBG Oxygen Saturation 98.3 % (50-70); VBG PCO2 38.4 mmol/L (35-51); VBG PH 7.39 mmol/L (7.31-7.41); VBG PO2 114.9 mmol/L (28-40); VBG Total CO2 23.6 mmol/L (23-27)
[2024-02-02] MEDS: LACTATED RINGERS 1000ML 1,000 ML 999 ML IV (07:01)
[2024-02-02] MEDS: PIPERACILLIN/TAZO 4.5 GM in 0.9 % SODIUM CHLORIDE 100 ML IV (07:01)
[2024-02-02 07:02] LABS: Lactate Venous 4.1 mmol/L (0.4-2.0)
[2024-02-02 07:07] LABS: Lactic Acid 3.6 mmol/L (0.7-2.1); Troponin I < 0.01 ng/ml (0.00-0.034)
--- NOTE | 2024-02-02 07:09 | ECG_ITS ---
APPROVED REPORT Exam: Resting ECG HR:129 bpm ECG Measurements Heart Rate 129 AXES MS 100 P 56 QRSd 89 QRS 36 QT 290 T 95 QTc 366 Conclusion Sinus tachycardia Electronically signed by : JEFFREY LUGO, 02/02/2024 13:37:18
[2024-02-02 07:11] LABS: Benzodiazepines Screen,Urine Negative ng/ml (<200)
[2024-02-02 07:12] LABS: Amphetamine/Metha Screen,Urine Negative ng/ml (<1000)
[2024-02-02 07:13] LABS: Barbiturates Screen,Urine Negative ng/ml (<200); Cannabinoid Screen,Urine Negative ng/ml (<50)
[2024-02-02 07:14] LABS: Cocaine Screen,Urine Negative ng/ml (<300)
[2024-02-02 07:15] LABS: Methadone Screen,Urine Negative ng/ml (<300); Opiate Screen,Urine Negative ng/ml (<300)
[2024-02-02 07:15] LABS: Lipase 109 U/L (23-300)
[2024-02-02 07:16] LABS: Phencyclidine Screen,Urine Negative ng/ml (<25)
[2024-02-02 07:17] LABS: Ethyl Alcohol < 10 mg/dl (0-10)
[2024-02-02 07:19] LABS: Thyroid Stimulating Hormone 2.69 uIU/mL (0.465-4.68)
--- NOTE | 2024-02-02 07:24 | PC.NURSE ---
Pt gone to RAD via stretcher
[2024-02-02] MEDS: SODIUM CHLORIDE 0.9% 10ML SYR (RAD ONLY) 10 ML IV (07:26)
[2024-02-02] MEDS: 0.9 % SODIUM CHLORIDE 50 ML VIAL IV (07:26)
[2024-02-02] MEDS: IOPAMIDOL-370 (76%);100ML BOTTLE 85 ML IV (07:26)
--- NOTE | 2024-02-02 07:28 | PC.NURSE ---
Pt back to room from [facility]
[2024-02-02 07:37] LABS: Bacteria,Urine 4+ /lpf
[2024-02-02] MEDS: VANCOMYCIN CONSULT REQUEST 1 EACH NOTAPPLIC (08:31)
--- NOTE | 2024-02-02 09:34 | PC.NURSE ---
Dr. Munroe, hospitalist at for patient eval.
--- NOTE | 2024-02-02 10:08 | SW/DCPLANNER ---
Addendum entered by Fatimah Marino RN 02/05/24 15:14: Discharged back to [facility] today. Original Note: This patient currently resides at [facility] level of care. I will continue to follow up w/ Rosalinda at [facility] until patient is medically stable for discharge. Discharge date is unknown at this time.
--- NOTE | 2024-02-02 10:23 | P.HP_ITS ---
History of Present Illness *Reason for visit:: Sepsis *History of present illness: This patient from [facility] nursing facility with past medical history of anemia, anxiety disorder, hyperlipidemia, dementia, depression, paranoid personality disorder, Alzheimer's disease, hypertension, generalized weakness, osteoporosis. Patient presents from nursing facility with SOB, tachycardia, confusion, decreased responsiveness. Staff states that patient unable to answer questions today and this is not like her. Patient also complaining of abdominal discomfort, and pain with urination. Patient's O2 sat durations 85% on room air. Patient presented to emergency room with heart rate 126, systolic blood pressure 106. Patient received fluid bolus with blood pressure increasing to 119/86. Disoriented to location/time. Patient able to answer simple questions without hesitation. Very agitated in emergency room. Denies shortness of breath, fevers, chills, chest pain. [facility] Disclaimer: The information contained in this section may have been updated after the patient was seen, as this information can be updated by other users. Medical History Acute hip pain Left hip pain No significant past medical history UTI (urinary tract infection) C. difficile diarrhea Closed intertrochanteric fracture left 12/2022 High blood pressure determined by examination Surgical History History of right hip replacement History of total right hip replacement History of appendectomy Social History Smoking Status: Never smoker alcohol intake: former substance use type: denies use current occupational status: retired Travel in the last 8 weeks: None household members: family housing: house marital status: education level: high school Hx Recent Travel: No sexually active: No Meds Home Medications and Allergies Home Medications ?Medication ?Instructions ?Recorded ?Confirmed ?Type ondansetron HCl 4 mg tablet 4 mg PO Q6H PRN Nausea 01/12/23 01/05/24 History oxycodone 5 mg tablet 5 mg PO Q4H PRN pain #30 tabs 01/12/23 01/05/24 Rx Saccharomyces boulardii 250 mg 250 mg PO DAILY 05/22/23 01/05/24 History capsule (Florastor) benzonatate 100 mg capsule 100 mg PO TID PRN Sinus Symptoms 05/22/23 01/05/24 History calcium carbonate (Antacid 200 mg PO DAILY 05/22/23 01/05/24 History (calcium carbonate)) guaifenesin 600 mg tablet, 600 mg PO BID PRN Sinus Symptoms 05/22/23 01/05/24 History extended release 12 hr (Mucinex) mirtazapine 30 mg tablet (Remeron) 30 mg PO DAILY 05/22/23 01/05/24 History sennosides 8.6 mg tablet (senna) 17.2 mg PO DAILY PRN Constipation 05/22/23 01/05/24 History acetaminophen 500 mg tablet 500 mg PO TID Pain 11/03/23 01/05/24 History ferrous sulfate 325 mg (65 mg 325 mg PO DAILY #90 tabs 12/29/23 01/05/24 Rx iron) tablet aluminum hydrox-magnesium carb 95 30 ml PO Q4HP #355 mL 01/05/24 01/05/24 Rx mg-358 mg/15 mL oral suspension (Acid Gone Antacid) olanzapine 10 mg tablet 10 mg PO BID #60 tabs 01/05/24 01/05/24 Rx venlafaxine 75 mg capsule,extended 75 mg PO DAILY #90 caps 01/05/24 01/05/24 Rx release 24 hr New Prescriptions to Start Prescriptions: Allergies Allergy/AdvReac Type Severity Reaction Status Date / Time Opioids - Morphine Analogues Allergy Severe Angioedema Verified 01/05/24 14:47 Exam Data for Last 24 hours Vital signs and Labs for Last 24 Hours: Temp Pulse Resp BP Pulse Ox O2 Del Method O2 Flow Rate 97.8 F 131 H 16 122/80 93 L Room Air 2 02/02/24 10:12 02/02/24 10:12 02/02/24 10:14 02/02/24 10:14 02/02/24 09:01 02/02/24 10:12 02/02/24 05:54 Laboratory Results - last 24 hr 02/02/24 06:27: WBC 12.3 H, RBC 3.47 L, Hgb 11.2 L, Hct 35.7 L, MCV 102.9 H, MCH 32.2 H, MCHC 31.3 L, RDW 16.2, Plt Count 346, MPV 8.2, Neut % (Auto) 62.3, Lymph % (Auto) 31.7, [place] % (Auto) 4.1, Eos % (Auto) 1.0, Baso % (Auto) 0.9, Neut # (Auto) 7.7, Lymph # (Auto) 3.9, [place] # (Auto) 0.5, Eos # (Auto) 0.1, Baso # (Auto) 0.1, Sodium 141, Potassium 4.1, Chloride 110 H, Carbon Dioxide 24, Anion Gap 11.1, BUN 20 H, Creatinine 0.90, Estimated GFR 60, Est GFR ( Amer) 72, Glucose 117 H, Lactate 3.6 H, Calcium 8.9, Total Bilirubin 0.5, AST 33, ALT 29, Alkaline Phosphatase 98, Troponin I < 0.01, Total Protein 7.1, Albumin 3.9, Globulin 3.2, Albumin/Globulin Ratio 1.2, Lipase 109, TSH 2.69, Acetaminophen < 10 L, Plasma/Serum Alcohol < 10 02/02/24 06:35: Urine Color Yellow, Urine Appearance Cloudy, Urine pH 6.0, Ur Specific [place] >= 1.030, Urine Protein 1+, Urine Glucose (UA) Negative, Urine Ketones Negative, Urine Blood 1+, Urine Nitrate Positive, Urine Bilirubin Negative, Urine Urobilinogen 0.2, Ur Leukocyte Esterase 1+ A, Urine RBC 5-10, Urine WBC 10-20, Ur Squamous Epith Cells 3-5, Urine Bacteria 4+, Urine Opiates Screen Negative, Urine Methadone Screen Negative, Ur Barbituates Screen Negative, Ur Phencyclidine Scrn Negative, Ur Amphetamines Screen Negative, U Benzodiazepines Scrn Negative, Urine Cocaine Screen Negative, U Marijuana (THC) Screen Negative 02/02/24 06:55: VBG pH 7.39, VBG pCO2 38.4, VBG pO2 114.9 H, VBG HCO3 22.5 L, VBG Total CO2 23.6, VBG O2 Saturation 98.3 H, VBG Base Excess -2.6 L, VBG Lactic Acid 4.1 H I & O for Last 24 hours: Intake & Output 01/30/24 01/31/24 02/01/24 02/02/24 23:59 23:59 23:59 23:59 Weight 62.596 kg Constitutional Constitutional: moderate distress, thin, disheveled and agitated *Routine HEENT Exam Head: Present normocephalic Eye: Present EOMI ENT: Present mucous membranes dry *Routine Neck Exam Neck: Present supple and full ROM *Routine Respiratory Exam Respiratory: Present diminished air movement *Routine Cardiovascular Exam Cardiovascular: Present tachycardia *Routine Abdominal Exam Abdominal: Present normoactive bowel sounds, tenderness and guarding *Routine Rectal Exam Rectal:: deferred *Routine Genitalia Exam Genitalia:: deferred *Routine Extremities Exam Extremities: Present pulses intact *Routine Skin Exam Skin: Present intact and dry *Routine Neurological Exam Neurological: Present alert and oriented X3 H&P: Result Impressions CT brain: No acute findings CTA chest no pulmonary bliss CT back no acute findings CT abdomen/pelvis constipation Assessment and Plan *Assessment and plan (1) Sepsis: Status: Acute Category: Medical Code(s): A41.9 - Sepsis, unspecified organism Plan 83-year-old [place] [facility] patient presents with SOB, hypotension, confusion, lethargy and. Patient has past medical history of Alzheimer's, osteoporosis, hypertension, generalized weakness hyperlipidemia, depression, paranoid personality disorder. Patient also complains of abdominal discomfort and dysuria at time of presentation. Presents with heart rate 126, hypotensive, and hypoxic. Sepsis likely genitourinary etiology, ? Admit to ICU. Given vancomycin/Zosyn in emergency room. Switch to vancomycin/meropenem therapy for empiric ESBL coverage. Blood cultures and urine cultures done in emergency room. Follow-up WBC, procalcitonin, CRP trends. Maintenance IV fluids. As needed pain meds and antiemetics. Depression: Continue home management Personal disorder, continue home management Alzheimer's: Continue home management Hyperlipidemia: Continue management Hypertension: Hold home blood pressure medicines for hypertensive CODE STATUS: DNR per [facility] documentation and patient's report FEN start with clears and advance as tolerated PPx: Lovenox subcutaneous
--- NOTE | 2024-02-02 10:28 | EXP.PHA.CONS ---
Pharmacy Consult Date: 02/02/24 Time: 10:28 Referring provider: DR. BEAR Reason for Consult:: VANCOMYCIN DOSING Allergies Allergy/AdvReac Type Severity Reaction Status Date / Time Opioids - Morphine Analogues Allergy Severe Angioedema Verified 01/05/24 14:47 Home Medications ?Medication ?Instructions ?Recorded ?Confirmed ?Type ondansetron HCl 4 mg tablet 4 mg PO Q6H PRN Nausea 01/12/23 01/05/24 History oxycodone 5 mg tablet 5 mg PO Q4H PRN pain #30 tabs 01/12/23 01/05/24 Rx Saccharomyces boulardii 250 mg 250 mg PO DAILY 05/22/23 01/05/24 History capsule (Florastor) benzonatate 100 mg capsule 100 mg PO TID PRN Sinus Symptoms 05/22/23 01/05/24 History calcium carbonate (Antacid 200 mg PO DAILY 05/22/23 01/05/24 History (calcium carbonate)) guaifenesin 600 mg tablet, 600 mg PO BID PRN Sinus Symptoms 05/22/23 01/05/24 History extended release 12 hr (Mucinex) mirtazapine 30 mg tablet (Remeron) 30 mg PO DAILY 05/22/23 01/05/24 History sennosides 8.6 mg tablet (senna) 17.2 mg PO DAILY PRN Constipation 05/22/23 01/05/24 History acetaminophen 500 mg tablet 500 mg PO TID Pain 11/03/23 01/05/24 History ferrous sulfate 325 mg (65 mg 325 mg PO DAILY #90 tabs 12/29/23 01/05/24 Rx iron) tablet aluminum hydrox-magnesium carb 95 30 ml PO Q4HP #355 mL 01/05/24 01/05/24 Rx mg-358 mg/15 mL oral suspension (Acid Gone Antacid) olanzapine 10 mg tablet 10 mg PO BID #60 tabs 01/05/24 01/05/24 Rx venlafaxine 75 mg capsule,extended 75 mg PO DAILY #90 caps 01/05/24 01/05/24 Rx release 24 hr New Prescriptions to Start Prescriptions: Height: 1.57 m Weight: 62.596 kg Laboratory Results:: Laboratory Results - last 24 hr 02/02/24 06:27: WBC 12.3 H, RBC 3.47 L, Hgb 11.2 L, Hct 35.7 L, MCV 102.9 H, MCH 32.2 H, MCHC 31.3 L, RDW 16.2, Plt Count 346, MPV 8.2, Neut % (Auto) 62.3, Lymph % (Auto) 31.7, [place] % (Auto) 4.1, Eos % (Auto) 1.0, Baso % (Auto) 0.9, Neut # (Auto) 7.7, Lymph # (Auto) 3.9, [place] # (Auto) 0.5, Eos # (Auto) 0.1, Baso # (Auto) 0.1, Sodium 141, Potassium 4.1, Chloride 110 H, Carbon Dioxide 24, Anion Gap 11.1, BUN 20 H, Creatinine 0.90, Estimated GFR 60, Est GFR ( Amer) 72, Glucose 117 H, Lactate 3.6 H, Calcium 8.9, Total Bilirubin 0.5, AST 33, ALT 29, Alkaline Phosphatase 98, Troponin I < 0.01, Total Protein 7.1, Albumin 3.9, Globulin 3.2, Albumin/Globulin Ratio 1.2, Lipase 109, TSH 2.69, Acetaminophen < 10 L, Plasma/Serum Alcohol < 10 02/02/24 06:35: Urine Color Yellow, Urine Appearance Cloudy, Urine pH 6.0, Ur Specific [place] >= 1.030, Urine Protein 1+, Urine Glucose (UA) Negative, Urine Ketones Negative, Urine Blood 1+, Urine Nitrate Positive, Urine Bilirubin Negative, Urine Urobilinogen 0.2, Ur Leukocyte Esterase 1+ A, Urine RBC 5-10, Urine WBC 10-20, Ur Squamous Epith Cells 3-5, Urine Bacteria 4+, Urine Opiates Screen Negative, Urine Methadone Screen Negative, Ur Barbituates Screen Negative, Ur Phencyclidine Scrn Negative, Ur Amphetamines Screen Negative, U Benzodiazepines Scrn Negative, Urine Cocaine Screen Negative, U Marijuana (THC) Screen Negative 02/02/24 06:55: VBG pH 7.39, VBG pCO2 38.4, VBG pO2 114.9 H, VBG HCO3 22.5 L, VBG Total CO2 23.6, VBG O2 Saturation 98.3 H, VBG Base Excess -2.6 L, VBG Lactic Acid 4.1 H Medical History: Medical History (Updated 08/20/24 @ 07:13 by Ladan Bear MD) Acute hip pain Left hip pain No significant past medical history UTI (urinary tract infection) C. difficile diarrhea Closed intertrochanteric fracture High blood pressure determined by examination Assessment and Plan Assessment and plan all Dx Assessment and Plan for all problems:: Pharmacokinetic dosing service Objective: Patient: Floor: Age: 83 yo Serum creatinine: 0.90 mg/dL Height: 62.0 Inches Weight (kg): 62.6 Assessment: IBW (kg): 50.10 Dosing wt(kg): 62.6 Estimated Creatinine clearance (ml/min): 36.8 CRCL method: Cockcroft and Gault using ibw(default). Drug selected: Vancomycin Loading dose (mg): Vd (liters): 50.1 (factor used: 0.8 L/kg) Gee (hr-1): 0.035 Half life (hrs): 19.80 CLvanco=?? 1.754 L/hr Recommended dose: 1000 mg Interval: 24 hrs Infusion time (hrs): 2.0 Predicted peak (mcg/mL): 33.9 Predicted trough (mcg/mL): 15.70 Total body weight is being used for vancomycin dosing. Recommendations: Give Vancomycin 1000 mg q 24 hrs with an expected Cpeak of 33.9 mcg/ml and an expected Ctrough of 15.70 mcg/ml AUC 0-24 /AP Data: AP 0.5 mcg/mL:?? AUC/AP:? 1140.3 AP 1.0 mcg/mL:?? AUC/AP:? 570.1 --------- AP 1.5 mcg/mL:?? AUC/AP:? 380.1 AP 2.0 mcg/mL:?? AUC/AP:? 285.1 Thank you for the consult, will continue to follow. -YURIDIA RIVASD
[2024-02-02 11:00] LABS: Reflex Lactic Add Lactic Reflex
[2024-02-02] MEDS: 0.9 % SODIUM CHLORIDE 1000ML 1,000 ML 100 ML IV ×2 (11:18→21:26)
[2024-02-02] MEDS: VANCOMYCIN HCL 1,000 MG in 0.9 % SODIUM CHLORIDE 250 ML 125 MG IV (11:18)
[2024-02-02] MEDS: LACTATED RINGERS 999 ML IV (11:29)
--- NOTE | 2024-02-02 12:06 | P.CONPHA_ITS ---
Pharmacy Intervention Comments: MEDICATION RECONCILIATION COMPLETED ON PATIENT USING MAR FROM [facility]. -BRANDO ELENA, YURIDIAD
--- NOTE | 2024-02-02 12:06 | HMH.PHAINT1 ---
Pharmacy Intervention Comments: MEDICATION RECONCILIATION COMPLETED ON PATIENT USING MAR FROM [facility]. -BRANDO ELENA, YURIDIAD
[2024-02-02] MEDS: PROCHLORPERAZINE 10MG/2ML VIAL 10 MG IM (12:46)
[2024-02-02] MEDS: HALOPERIDOL LACTATE 5 MG/ML VIAL 3 MG IM ×2 (12:46→21:26)
[2024-02-02 12:55] LABS: Chloride 108 mmol/L (98-107); Potassium 4.2 mmoL/L (3.5-5.1); Sodium 138 mmol/L (136-145)
[2024-02-02 12:58] LABS: Anion Gap 9.2 mEq/L (5-15); Blood Urea Nitrogen 17 mg/dl (7-17); Calcium 8.4 mg/dl (8.4-10.2); Carbon Dioxide 25 mmol/L (22.0-30.0); Creatinine Clearance Estimated 39 mL/min (50-200); Estimated Glomerular Filt Rate 80 ml/min (>60); GFR (African American) 96 ML/MIN (>60); Glucose 127 mg/dl (74-100)
[2024-02-02 12:59] LABS: Lactic Acid Follow Up (RFLX 1) 1.6 mmol/L (0.7-2.1)
[2024-02-02] MEDS: MEROPENEM 1 GM in 0.9 % SODIUM CHLORIDE 100 ML IV (12:59)
[2024-02-02 13:13] LABS: Troponin I < 0.01 ng/ml (0.00-0.034)
[2024-02-02] MEDS: diphenhydrAMINE 50MG/ML VIAL 50 MG IV (13:42)
--- NOTE | 2024-02-02 17:30 | PC.NURSE ---
Addendum entered by Rosalinda Madison RN 02/02/24 17:34: PATIENT'S HR HAS REMAINED IN 120-130S T/O SHIFT. AWARE. NNO. Original Note: PATIENT HAS ONLY BEEN ALERT TO NAME THIS SHIFT. IS OTHERWISE CONFUSED. PT HAS BEEN SHOUTING ON AND OFF ALL DAY, BUT CAN'T TELL US WHAT SHE NEEDS WHEN CHECKED ON. TOLERATING 2LNC WELL. O2 SAT REMAINING IN MID 90S. PT HAS REMAINED IN BED THIS SHIFT, RESTING INTERMITTENTLY. SON DID COME TO VISIT WHICH DID SEEM TO HELP PATIENT. BED SAFETY ON. PT HAS BEEN INCONTINENT TO BLADDER VIA BRIEF. KEPT CLEAN AND DRY. PT HAS NOT WANTED TO EAT OR DRINK MUCH THIS SHIFT, BUT HAS HAD SOME JELLO. KEEPS ASKING FOR FOOD-WILL ADVANCE DIET TOLERATED PER MD LABOY. NO OTHER NEEDS OR C/O NOTED THUS FAR THIS SHIFT. VSS.
[2024-02-02] MEDS: PANTOPRAZOLE 40MG VIAL 40 MG IV (21:26)
[2024-02-02] MEDS: SODIUM CHLORIDE 0.9% 10ML VIAL 10 ML IV (21:26)
[2024-02-02] MEDS: ACETAMINOPHEN 1,000MG/100ML VIAL 1000 MG IV (22:45)
[2024-02-03] VITALS (11 sets, daily range): BP systolic 112–160; BP diastolic 53–98; PULSE 91–134; RESP 17–26; TEMP 36.9–37.9; O2SAT 93–98; BMI 23.6; BMI 23.8
[2024-02-03] MEDS: MEROPENEM 1 GM in 0.9 % SODIUM CHLORIDE 100 ML IV ×2 (01:00→12:35)
--- NOTE | 2024-02-03 06:09 | PC.NURSE ---
End of shift summary: No acute changes for patient throughout shift. She was medicated per MAR for fever and agitation. VSS and NAD otherwise.
[2024-02-03] MEDS: 0.9 % SODIUM CHLORIDE 1000ML 1,000 ML 100 ML IV (06:14)
[2024-02-03] MEDS: DOCUSATE SODIUM 10 ML/UDC UDC PO (09:11)
[2024-02-03] MEDS: SENNA 8.6MG TABLET 8.6 MG PO ×2 (09:11→20:41)
[2024-02-03] MEDS: ENOXAPARIN 40MG/0.4ML SYRINGE 40 MG SQ (09:11)
[2024-02-03] MEDS: VANCOMYCIN HCL 1,000 MG in 0.9 % SODIUM CHLORIDE 250 ML 125 MG IV (10:14)
[2024-02-03 11:31] LABS: Basophils # 0.1 K/mm3 (0-0.2); Basophils % 0.4 % (0.1-2.0); Eosinophils # 0.1 K/mm3 (0.0-0.4); Eosinophils % 0.6 % (0.1-12.0); Hematocrit 35.2 % (37.0-47.0); Hemoglobin 11.2 g/dL (12.2-16.2); Lymphocytes # 1.7 K/mm3 (0.7-4.5); Lymphocytes % 15.3 % (10-50); Mean Corpuscular HGB Conc 31.7 g/dL (31.8-35.4); Mean Corpuscular Hemoglobin 32.3 pg (27.0-31.2); Mean Corpuscular Volume 101.9 fl (81-99); Mean Platelet Volume 7.8 fl (7.4-10.4); Monocytes # 0.7 K/mm3 (0.1-1.0); Monocytes % 6.4 % (1.7-9.3); Neutrophils # 8.5 K/mm3 (1.8-7.8); Neutrophils % 77.3 % (37.0-80.0); Platelet Count 207 K/mm3 (142-424); Red Blood Count 3.45 M/mm3 (4.20-5.40); Red Cell Distribution Width 15.7 % (11.5-17.5)
--- NOTE | 2024-02-03 11:36 | DIET.NUTRFU ---
Spoke to nurse at [facility], patient is on pureed diet with thin liquids. She likes to feed herself typically with her fingers, staff tries to assist also. She has had good intake with stable weight. She also uses a sippy cup and divided plate, likes starry or sprite and receives chocolate healthshakes BID-started ensure and ice cream with lunch and pudding with dinner. RD reviewed changes with nursing staff and updated kitchen orders
--- NOTE | 2024-02-03 13:12 | ECG_ITS ---
APPROVED REPORT Exam: Resting ECG HR:106 bpm ECG Measurements Heart Rate 106 AXES DC 133 P 61 QRSd 82 QRS 7 QT 315 T 90 QTc 377 Conclusion SINUS TACHYCARDIA NONSPECIFIC T-WAVE ABNORMALITY ABNORMAL RHYTHM ECG UNCONFIRMED REPORT Electronically signed by : Nima Bright MD 02/03/2024 14:04:36
[2024-02-03 14:54] LABS: Anion Gap 11.7 mEq/L (5-15); Blood Urea Nitrogen 12 mg/dl (7-17); Calcium 9.1 mg/dl (8.4-10.2); Carbon Dioxide 22 mmol/L (22.0-30.0); Chloride 110 mmol/L (98-107); Creatinine Clearance Estimated 38 mL/min (50-200); Estimated Glomerular Filt Rate 95 ml/min (>60); GFR (African American) 115 ML/MIN (>60); Glucose 101 mg/dl (74-100); Potassium 3.7 mmoL/L (3.5-5.1); Sodium 140 mmol/L (136-145)
--- NOTE | 2024-02-03 15:37 | PC.NURSE ---
PT IS RESTING IN BED. ALERT TO SELF ONLY. TURNED AND REPOSITIONED IN BED. EATING AND DRINKING WELL. PT HAS HAD SEVERAL FAMILY MEMBERS VISIT TODAY. LUNG SOUNDS CLEAR. ABDOMEN SOFT/NON TENDER WITH ACTIVE BOWEL SOUNDS. PT HAS BEEN INCONTINENT. PURWICK IN PLACE. O2 SATURATION HAS MAINTAINED 90-95% ON RA. HR HAS BEEN ELEVATED 120-130 INTERMITTENTLY T/O THE SHIFT. PHYSICIAN NOTIFIED EKG CONFIRMED SINUS TACH. PHYSICIAN ORDERED LOPRESSOR 2.5 MG IV Q8H PRN FOR HR SUSTAINING >120. WILL CONTINUE TO MONITOR.
--- NOTE | 2024-02-03 16:44 | CT_ITS ---
PROCEDURE INFORMATION: Exam: CTA Chest With Contrast Exam date and time: 02/03/2024 6:20 PM Age: 84 years old Clinical indication: Other: Sinus tach; Additional info: R/O pe in sepsic patient w/ persistent sinus tach TECHNIQUE: Imaging protocol: Computed tomographic angiography of the chest with contrast. Exam focused on the arteries. 3D rendering (Not supervised by radiologist): MIP and/or 3D reconstructed images were created by the technologist. Radiation optimization: All CT scans at this facility use at least one of these dose optimization techniques: automated exposure control; mA and/or kV adjustment per patient size (includes targeted exams where dose is matched to clinical indication); or iterative reconstruction. Contrast material: ISOVUE; Contrast volume: 70 ml; Contrast route: INTRAVENOUS (IV); COMPARISON: CT ANGIO CHEST 02/02/2024 7:22 AM FINDINGS: Limitations: Mild motion artifact could obscure small peripheral pulmonary emboli. Pulmonary arteries: No visible pulmonary emboli. Normal caliber pulmonary arteries. Aorta: Mild thoracic aortic atherosclerotic disease. Unchanged mildly ectatic ascending thoracic aorta measuring up to 3.8 cm. Lungs: Mild bilateral dependent atelectasis. Pleural spaces: Small bilateral pleural effusions. Heart: Unremarkable. No cardiomegaly. No pericardial effusion. Coronary arteries: Mild coronary artery calcification. Lymph nodes: Unremarkable. No enlarged lymph nodes. Diaphragm: Small hiatal hernia. Bones/joints: Mild upper thoracic spine levoscoliosis. Mild multilevel degenerative disc disease. Soft tissues: Unremarkable. IMPRESSION: 1. Mild motion artifact could obscure small peripheral pulmonary emboli. 2. No visible pulmonary emboli. 3. Small bilateral pleural effusions. 4. Mild bilateral atelectasis.
--- NOTE | 2024-02-03 16:50 | P.PN_ITS ---
Subjective *Date: 02/03/24 *Time: 16:56 Interval history: Patient more reactive and alert today. Smiling both during attending rounds by Dr. Munroe and IDT rounds with staff. Patient making simple conversation with staff today. Family states that patient suffers from conversational diffic ulties at baseline. Appears in less pain, and more comfortable versus yesterday examination. Medical Exam Vital signs and Labs for Last 24 Hours: Vital Signs Temp Pulse Pulse Resp BP Pulse Ox O2 Del Method 02/03/24 16:00 Room Air 02/03/24 16:00 110 H 02/03/24 16:00 105 H 18 112/88 98 Room Air 02/03/24 15:00 Room Air 02/03/24 14:00 110 H 20 145/80 H 93 L Room Air 02/03/24 13:00 Room Air 02/03/24 12:00 105 H 02/03/24 12:00 95 H 20 116/59 L 96 Room Air 02/03/24 12:00 98.8 F 02/03/24 11:00 Nasal Cannula 02/03/24 10:00 105 H 18 133/71 94 L Nasal Cannula 02/03/24 08:11 Nasal Cannula 02/03/24 08:00 120 H 02/03/24 08:00 Nasal Cannula 02/03/24 08:00 98.4 F 103 H 20 156/98 H 94 L Nasal Cannula 02/03/24 06:00 104 H 26 H 123/77 96 BiPAP 02/03/24 04:00 98.7 F 93 H 17 120/53 L 97 Nasal Cannula 02/03/24 04:00 92 H 02/03/24 02:00 91 H 17 123/69 97 Nasal Cannula 02/03/24 00:00 98.7 F 98 H 19 129/68 97 Nasal Cannula 02/03/24 00:00 119 H 02/02/24 22:00 100.8 F H 105 H 19 141/78 H 96 Nasal Cannula 02/02/24 20:00 117 H 02/02/24 20:00 107 H 18 154/88 H 94 L Nasal Cannula 02/02/24 20:00 98.9 F 02/02/24 18:51 Nasal Cannula 02/02/24 18:00 98.8 F 122 H 18 144/79 H 94 L Nasal Cannula O2 Flow Rate 02/03/24 16:00 02/03/24 16:00 02/03/24 16:00 02/03/24 15:00 02/03/24 14:00 02/03/24 13:00 02/03/24 12:00 02/03/24 12:00 02/03/24 12:00 02/03/24 11:00 2 02/03/24 10:00 2 02/03/24 08:11 2 02/03/24 08:00 02/03/24 08:00 2 02/03/24 08:00 2 02/03/24 06:00 02/03/24 04:00 2 02/03/24 04:00 02/03/24 02:00 2 02/03/24 00:00 2 02/03/24 00:00 02/02/24 22:00 2 02/02/24 20:00 02/02/24 20:00 2 02/02/24 20:00 02/02/24 18:51 2 02/02/24 18:00 2 Intake and Output 02/03/24 02/03/24 02/03/24 07:59 15:59 23:59 Intake Total 2350 / 3698 1348 / 3698 Output Total 800 / 800 Balance 1550 / 2898 1348 / 2898 Intake: Intake, Oral Amount 0 / 450 450 / 450 Intake, Total IV Amount 2350 / 3248 898 / 3248 0.9 % Sodium Chloride 1000ML 1, 2000 / 2898 898 / 2898 000 ml @ 100 mls/hr IV .Q10H [facility] Rx#:[id number] Meropenem 1 gm In 0.9 % Sodium 100 / 100 Chloride 100 ml @ 100 mls/hr IV Q12H [facility] Rx#:[id number] Vancomycin HCl 1,000 mg In 0.9 250 / 250 % Sodium Chloride 250 ml @ 125 mls/hr IV Q24H [facility] Rx#:[id number] Output: Output, Urine Amount 800 / 800 Other: Number of Unmeasured Voids 0 Weight 58.7 kg 58.7 kg Patient Weight 02/03/24 23:59 Weight 58.7 kg Laboratory Results - last 24 hr 02/02/24 06:35: Urine Color Yellow, Urine Appearance Cloudy, Urine pH 6.0, Ur Specific [place] >= 1.030, Urine Protein 1+, Urine Glucose (UA) Negative, Urine Ketones Negative, Urine Blood 1+, Urine Nitrate Positive, Urine Bilirubin Negative, Urine Urobilinogen 0.2, Ur Leukocyte Esterase 1+ A, Urine RBC 5-10, Urine WBC 10-20, Ur Squamous Epith Cells 3-5, Urine Bacteria 4+ 02/03/24 11:19: WBC 11.0 H, RBC 3.45 L, Hgb 11.2 L, Hct 35.2 L, MCV 101.9 H, MCH 32.3 H, MCHC 31.7 L, RDW 15.7, Plt Count 207 D, MPV 7.8, Neut % (Auto) 77.3, Lymph % (Auto) 15.3, Lynn % (Auto) 6.4, Eos % (Auto) 0.6, Baso % (Auto) 0.4, Neut # (Auto) 8.5 H, Lymph # (Auto) 1.7, Lynn # (Auto) 0.7, Eos # (Auto) 0.1, Baso # (Auto) 0.1, Sodium 140, Potassium 3.7, Chloride 110 H, Carbon Dioxide 22, Anion Gap 11.7, BUN 12 D, Creatinine 0.60, Estimated Creat Clear 38, Estimated GFR 95, Est GFR ( Amer) 115, Glucose 101 H D, Calcium 9.1, C-Reactive Protein 146.0 H I & O for Labs for Last 24 Hours: Intake & Output 01/31/24 02/01/24 02/02/24 02/03/24 23:59 23:59 23:59 23:59 Intake Total 330 / 2680 3698 / 3698 Output Total 0 / 500 800 / 800 Balance 330 / 2180 2898 / 2898 Weight 58.74 kg 58.7 kg Microbiology Reports for the Last 24 Hours: Microbiology 02/02/24 06:32 Blood Blood Culture - Preliminary NO GROWTH AFTER 24 HOURS 02/02/24 06:27 Blood Blood Culture - Preliminary NO GROWTH AFTER 24 HOURS 02/02/24 06:35 Urine,Catheterized Urine Culture - Preliminary Gram Negative Rods Head: Present normocephalic ENT: Present normal exam Neck: Present normal inspection Respiratory: Present CTA bilaterally Cardiac: Present Tachycardia GI: Present soft, normal bowel sounds and diminished bowel sounds Rectal (female): Present deferred (female): Present deferred Extremities: Present normal inspection and full ROM Skin: Present intact and dry Assessment and Plan *Assessment and plan (1) Sepsis: Status: Acute Category: Medical Code(s): A41.9 - Sepsis, unspecified organism (2) Urinary tract infection: Status: Acute Category: Medical Code(s): N39.0 - Urinary tract infection, site not specified (3) Alzheimer disease: Status: Acute Category: Medical Code(s): G30.9 - Alzheimer's disease, unspecified; F02.80 - Dementia in other diseases classified elsewhere, unspecified severity, without behavioral disturbance, psychotic disturbance, mood disturbance, and anxiety (4) Paranoid personality (disorder): Status: Acute Category: Medical Code(s): F60.0 - Paranoid personality disorder (5) HTN (hypertension): Status: Acute Category: Medical Code(s): I10 - Essential (primary) hypertension Plan 83[facility] presents with SOB, hypotension, confusion, lethargy and. Patient has past medical history of Alzheimer's, osteoporosis, hypertension, generalized weakness hyperlipidemia, depression, paranoid personality disorder. Patient also complains of abdominal discomfort and dysuria at time of presentation. Presents with heart rate 126, hypotensive, and hypoxic. Sepsis likely genitourinary etiology ?02/02 patient downgraded to stepdown today. Still suffering from persistent febrile intervals despite IV vancomycin/meropenem. Urine culture positive for over 100,000 coliform units of gram-negative rods. Will discontinue vancomycin. Ordered respiratory panel and MRSA nares to complete infectious workup. Blood cultures no growth to date. ? Admit to ICU. Given vancomycin/Zosyn in emergency room. Switch to vancomycin/meropenem therapy for empiric ESBL coverage. Blood cultures and urine cultures done in emergency room. Follow-up WBC, procalcitonin, CRP trends. Maintenance IV fluids. As needed pain meds and antiemetics. Sinus tachycardia likely sepsis related: ? Patient's lactic acid 1.6 yesterday. Procalcitonin still pending. EKG done today shows sinus tachycardia. Will perform CTA chest to rule out PE, but suspect patient's sinus tachycardia secondary to sepsis. Continue to treat sepsis and reevaluate. Patient on maintenance IV fluids. Depression: Continue home management Personal disorder, continue home management Alzheimer's: Continue home management Hyperlipidemia: Continue management Hypertension: Hold home blood pressure medicines for hypertensive CODE STATUS: DNR per [facility] documentation and patient's report PPx: Lovenox subcutaneous FEN ?02/02 will advance patient's diet to regular today. Patient did extremely well on clears yesterday. ?02/01 start with clears and advance as tolerated Disposition: ? 02/02 patient still febrile today with sinus tachycardia. Will leave patient in stepdown today. Continue IV meropenem until culture results available. If patient continues to improve clinically, will likely transfer patient out of stepdown within next 48 hours. 35 minutes of critical care time spentby Dr. Munroe 02/03/2024.
[2024-02-03 17:14] LABS: Magnesium 1.9 mg/dl (1.6-2.3)
[2024-02-03 17:53] LABS: Procalcitonin 0.433 ng/mL (0.0-2.0)
[2024-02-03] MEDS: IOPAMIDOL-370 (76%);100ML BOTTLE 70 ML IV (18:36)
[2024-02-03] MEDS: SODIUM CHLORIDE 0.9% 10ML SYR (RAD ONLY) 10 ML IV (18:36)
[2024-02-03] MEDS: 0.9 % SODIUM CHLORIDE 50 ML VIAL IV (18:36)
[2024-02-03 18:51] LABS: Adenovirus,PCR Not Detected (NotDetected); Bordetella Pertussis Not Detected (NotDetected); Chlamydophila Pneumoniae, PCR Not Detected (NotDetected); Coronavirus 19, PCR Not Detected (NotDetected); Coronavirus 229E Not Detected (NotDetected); Coronavirus NL63 Not Detected (NotDetected); Coronavirus OC43 Not Detected (NotDetected); Coronovirus HKU1,PCR Not Detected (NotDetected); Human Metapneumovirus Not Detected (NotDetected); Influenza A, PCR Not Detected (NotDetected); Influenza AH1, 2009 Not Detected (NotDetected); Influenza AH1, PCR Not Detected (NotDetected); Influenza AH3,PCR Not Detected (NotDetected); Influenza B, PCR Not Detected (NotDetected); Mycoplasma Pneumoniae, PCR Not Detected (NotDetected); Parainfluenza 1, PCR Not Detected (NotDetected); Parainfluenza 2, PCR Not Detected (NotDetected); Parainfluenza 3, PCR Not Detected (NotDetected); Parainfluenza 4, PCR Not Detected (NotDetected); Respiratory Syncytial Virus Not Detected (NotDetected); Rhinovirus/Enterovirus Not Detected (NotDetected)
[2024-02-03] MEDS: PANTOPRAZOLE 40MG VIAL 40 MG IV (20:40)
[2024-02-03] MEDS: METOPROLOL TARTRATE 5MG/5ML VIAL 2.5 MG IV ×2 (20:41→23:14)
--- NOTE | 2024-02-03 23:09 | PC.NURSE ---
HR staying consistantly 130-140. Xu Falk APRN notified. Order received to administer another 2.5 mg IV dose now.
[2024-02-03] MEDS: ACETAMINOPHEN 325MG TAB 650 MG PO (23:19)
[2024-02-04] VITALS (7 sets, daily range): BP systolic 145–171; BP diastolic 73–100; PULSE 88–130; RESP 17–19; TEMP 36.8–37.7; O2SAT 93–98; BMI 25.1
[2024-02-04] MEDS: MEROPENEM 1 GM in 0.9 % SODIUM CHLORIDE 100 ML IV ×2 (00:06→13:52)
--- NOTE | 2024-02-04 04:01 | PC.NURSE ---
HAS SLEPT AT SHORT INTERVALS. ORIENTED TO SELF. BED ALARM IN USE. SINUS TACHYCARDIA ON TELEMETRY, RATES 130s-140s EARLY IN SHIFT. HAS RECEIVED 2 DOSES OF METOPROLOL 2.5 MG IVP OVER 2 MINS FOR FAST HR. PLEASANTLY CONFUSED.
[2024-02-04 06:35] LABS: Basophils % 0.4 % (0.1-2.0); Eosinophils # 0.1 K/mm3 (0.0-0.4); Eosinophils % 0.8 % (0.1-12.0); Hematocrit 32.6 % (37.0-47.0); Hemoglobin 10.3 g/dL (12.2-16.2); Lymphocytes # 2.1 K/mm3 (0.7-4.5); Lymphocytes % 19.7 % (10-50); Mean Corpuscular HGB Conc 31.7 g/dL (31.8-35.4); Mean Corpuscular Hemoglobin 32.7 pg (27.0-31.2); Mean Corpuscular Volume 103.2 fl (81-99); Mean Platelet Volume 8.2 fl (7.4-10.4); Monocytes # 0.9 K/mm3 (0.1-1.0); Monocytes % 7.9 % (1.7-9.3); Neutrophils # 7.7 K/mm3 (1.8-7.8); Neutrophils % 71.2 % (37.0-80.0); Platelet Count 234 K/mm3 (142-424); Red Blood Count 3.16 M/mm3 (4.20-5.40); White Blood Count 10.8 K/mm3 (4.8-10.8)
[2024-02-04 06:42] LABS: Chloride 108 mmol/L (98-107); Sodium 137 mmol/L (136-145)
[2024-02-04 06:43] LABS: Potassium 3.6 mmoL/L (3.5-5.1)
[2024-02-04 06:45] LABS: Blood Urea Nitrogen 12 mg/dl (7-17); Creatinine Clearance Estimated 40 mL/min (50-200); Estimated Glomerular Filt Rate 95 ml/min (>60); GFR (African American) 115 ML/MIN (>60)
[2024-02-04 06:46] LABS: Anion Gap 8.6 mEq/L (5-15); Calcium 8.9 mg/dl (8.4-10.2); Carbon Dioxide 24 mmol/L (22.0-30.0); Glucose 106 mg/dl (74-100)
[2024-02-04 06:52] LABS: C-Reactive Protein 145.5 mg/L (0-4)
[2024-02-04] MEDS: SENNA 8.6MG TABLET 8.6 MG PO ×2 (08:04→20:37)
[2024-02-04] MEDS: ENOXAPARIN 40MG/0.4ML SYRINGE 40 MG SQ (08:04)
[2024-02-04] MEDS: DOCUSATE SODIUM 10 ML/UDC UDC PO ×2 (08:04→20:37)
[2024-02-04 08:09] LABS: Procalcitonin 0.365 ng/mL (0.0-2.0)
--- NOTE | 2024-02-04 10:33 | PC.NURSE ---
Coccyx with blister and mepilex placed.
[2024-02-04] MEDS: VANCOMYCIN HCL 1,000 MG in 0.9 % SODIUM CHLORIDE 250 ML 125 MG IV (11:56)
--- NOTE | 2024-02-04 14:40 | P.PN_ITS ---
Subjective *Date: 02/04/24 *Time: 14:56 Interval history: Pt more improved vs. yesterdays exam. Able to answer simple questions, Awake, Alert. Denies CP, or SOB overnight. Still occasionally yells out throughout day but according to half-way this is patient's baseline. Medical Exam Vital signs and Labs for Last 24 Hours: Vital Signs Temp Pulse Pulse Resp BP Pulse Ox O2 Del Method 02/04/24 14:37 Room Air 02/04/24 12:00 98.8 F 98 H 18 171/96 H 98 Room Air 02/04/24 11:57 Room Air 02/04/24 10:07 Room Air 02/04/24 08:17 Room Air 02/04/24 08:00 90 02/04/24 08:00 98.3 F 94 H 19 160/73 H 97 Room Air 02/04/24 08:00 Room Air 02/04/24 06:35 Room Air 02/04/24 05:00 Room Air 02/04/24 04:00 98.5 F 94 H 17 146/80 H 96 Room Air 02/04/24 04:00 88 02/04/24 00:52 Room Air 02/04/24 00:00 99.9 F H 121 H 18 147/92 H 95 Room Air 02/03/24 23:00 Room Air 02/03/24 21:00 Room Air 02/03/24 20:00 96 Room Air 02/03/24 20:00 131 H 02/03/24 20:00 100.2 F H 134 H 18 134/84 96 Room Air 02/03/24 18:00 110 H 21 160/98 H 95 Room Air 02/03/24 17:00 Room Air 02/03/24 16:00 100.2 F H 02/03/24 16:00 Room Air 02/03/24 16:00 110 H 02/03/24 16:00 105 H 18 112/88 98 Room Air 02/03/24 15:00 Room Air Intake and Output 02/03/24 02/04/24 02/04/24 23:59 07:59 15:59 Intake Total 300 / 610 310 / 610 Output Total 300 / 1100 200 / 200 0 / 200 Balance -300 / 2898 100 / 410 310 / 410 Intake: Intake, Oral Amount 200 / 260 60 / 260 Intake, Total IV Amount 100 / 350 250 / 350 Meropenem 1 gm In 0.9 % Sodium 100 / 100 Chloride 100 ml @ 100 mls/hr IV Q12H [facility] Rx#:[id number] Vancomycin HCl 1,000 mg In 0.9 250 / 250 % Sodium Chloride 250 ml @ 125 mls/hr IV Q24H [facility] Rx#:[id number] Output: Output, Urine Amount 300 / 1100 200 / 200 0 / 200 Other: Number of Unmeasured Voids 0 1 1 Weight 61.87 kg Patient Weight 02/04/24 23:59 Weight 61.87 kg Laboratory Results - last 24 hr 02/03/24 11:19: Sodium 140, Potassium 3.7, Chloride 110 H, Carbon Dioxide 22, Anion Gap 11.7, BUN 12 D, Creatinine 0.60, Estimated Creat Clear 38, Estimated GFR 95, Est GFR ( Amer) 115, Glucose 101 H D, Calcium 9.1, Magnesium 1.9, Procalcitonin 0.433 02/03/24 18:10: Chlamy pneumoniae PCR Not detected, Adenovirus (PCR) Not detected, B. pertussis DNA (PCR) Not detected, Coronavirus OC43 (PCR) Not detected, Coronavirus HKU1 (PCR) Not detected, Coronavirus 229E (PCR) Not detected, SARS-CoV-2 (PCR) Not detected, Coronavirus NL63 (PCR) Not detected, Human Metapneumovir PCR Not detected, Influenza A (H1) PCR Not detected, Influ A (H1N1/09) PCR Not detected, Influenza A (H3) PCR Not detected, Influenza Type A (PCR) Not detected, Influenza Type B (PCR) Not detected, M. pneumoniae (PCR) Not detected, Parainfluenza 1 (PCR) Not detected, Parainfluenza 2 (PCR) Not detected, Parainfluenza 3 (PCR) Not detected, Parainfluenza 4 (PCR) Not detected, RSV (PCR) Not detected, Entero/Rhino (PCR) Not detected 02/04/24 05:40: WBC 10.8, RBC 3.16 L, Hgb 10.3 L, Hct 32.6 L, MCV 103.2 H, MCH 32.7 H, MCHC 31.7 L, RDW 16.0, Plt Count 234, MPV 8.2, Neut % (Auto) 71.2, Lymph % (Auto) 19.7, [place] % (Auto) 7.9, Eos % (Auto) 0.8, Baso % (Auto) 0.4, Neut # (Auto) 7.7, Lymph # (Auto) 2.1, [place] # (Auto) 0.9, Eos # (Auto) 0.1, Baso # (Auto) 0.0, Sodium 137, Potassium 3.6, Chloride 108 H, Carbon Dioxide 24, Anion Gap 8.6, BUN 12, Creatinine 0.60, Estimated Creat Clear 40, Estimated GFR 95, Est GFR ( Amer) 115, Glucose 106 H, Calcium 8.9, Magnesium 2.0, C- Reactive Protein 145.5 H, Procalcitonin 0.365 02/04/24 10:10: Vancomycin Trough 6.0 I & O for Labs for Last 24 Hours: Intake & Output 02/01/24 02/02/24 02/03/24 02/04/24 23:59 23:59 23:59 23:59 Intake Total 330 / 2680 3698 / 3998 610 / 610 Output Total 0 / 500 1100 / 1100 200 / 200 Balance 330 / 2180 2598 / 2898 410 / 410 Weight 58.74 kg 58.7 kg 61.87 kg Microbiology Reports for the Last 24 Hours: Microbiology 02/02/24 06:35 Urine,Catheterized Urine Culture - Final Escherichia coli 02/02/24 06:32 Blood Blood Culture - Preliminary NO GROWTH AFTER 48 HOURS 02/02/24 06:27 Blood Blood Culture - Preliminary NO GROWTH AFTER 48 HOURS Head: Present normocephalic ENT: Present normal exam Neck: Present normal inspection and full ROM Respiratory: Present diminished air movement and normal respiratory effort Cardiac: Present Reg Rate and Rhythm GI: Present soft and normal bowel sounds Extremities: Present normal inspection and full ROM Skin: Present intact and dry Assessment and Plan *Assessment and plan (1) Sepsis: Status: Acute Category: Medical Code(s): A41.9 - Sepsis, unspecified organism (2) Acidosis, lactic: Status: Acute Category: Medical Code(s): E87.20 - Acidosis, unspecified (3) Urinary tract infection: Status: Acute Category: Medical Code(s): N39.0 - Urinary tract infection, site not specified (4) Alzheimer disease: Status: Acute Category: Medical Code(s): G30.9 - Alzheimer's disease, unspecified; F02.80 - Dementia in other diseases classified elsewhere, unspecified severity, without behavioral disturbance, psychotic disturbance, mood disturbance, and anxiety Plan 83-year-old half-way patient presents with SOB, hypotension, confusion, lethargy and. Patient has past medical history of Alzheimer's, osteoporosis, hypertension, generalized weakness hyperlipidemia, depression, paranoid personality disorder. Patient also complains of abdominal discomfort and dysuria at time of presentation. Presents with heart rate 126, hypotensive, and hypoxic. Ecoli Sepsis likely genitourinary etiology ?02/03 patient is E. coli sensitive to Rocephin. Will discontinue meropenem and start IV Rocephin. - 02/03 results of admission UCx show Ecoli. BCx NGTD. Will cont IV abx and follow WBC, procalcitonin and CRP trends. ?02/02 patient downgraded to stepdown today. Still suffering from persistent febrile intervals despite IV vancomycin/meropenem. Urine culture positive for over 100,000 coliform units of gram-negative rods. Will discontinue vancomycin. Ordered respiratory panel and MRSA nares to complete infectious workup. Blood cultures no growth to date. ? Admit to ICU. Given vancomycin/Zosyn in emergency room. Switch to vancomycin/meropenem therapy for empiric ESBL coverage. Blood cultures and urine cultures done in emergency room. Follow-up WBC, procalcitonin, CRP trends. Maintenance IV fluids. As needed pain meds and antiemetics. Sinus tachycardia likely sepsis related: ? Patient's lactic acid 1.6 yesterday. Procalcitonin still pending. EKG done today shows sinus tachycardia. Will perform CTA chest to rule out PE, but suspect patient's sinus tachycardia secondary to sepsis. Continue to treat sepsis and reevaluate. Patient on maintenance IV fluids. Depression: Continue home management Personal disorder, continue home management Alzheimer's: Continue home management Hyperlipidemia: Continue management Hypertension: Hold home blood pressure medicines for hypertensive CODE STATUS: DNR per half-way documentation and patient's report PPx: Lovenox subcutaneous FEN ?02/02 will advance patient's diet to regular today. Patient did extremely well on clears yesterday. ?02/01 start with clears and advance as tolerated Disposition: ? PT appears much improved vs yesterday exam. Will downgrade patient to med surg if pt cont to improves over next 24 hrs.
--- NOTE | 2024-02-04 15:13 | PC.NURSE ---
Aox 1 with confusion and periods of yelling out, turn every two hours, on multiple iv abx, DNR, pureed diet with assistance to eat, on lovenox for vte, ninoskack in place, st on tele hr 100-120's, 90's on ra, 22g r hand sl, from [facility].
[2024-02-04] MEDS: VENLAFAXINE XR 75MG CAPSULE 75 MG PO (15:26)
[2024-02-04] MEDS: CEFTRIAXONE SODIUM 2 GM in 0.9 % SODIUM CHLORIDE 100 ML IV (15:26)
[2024-02-04 15:43] LABS: Vancomycin,Peak 16.4 ug/ml (11-39)
--- NOTE | 2024-02-04 17:01 | PC.NURSE ---
NURSE NOTIFIED BY THIS SRNA ABOUT pt VITALS SIGN READINGS @1600.
--- NOTE | 2024-02-04 17:20 | PC.NURSE ---
Md. verbal give one dose hydralazine 10gm iv outside of new order parameters for bp.
[2024-02-04] MEDS: HYDRALAZINE 20MG/ML VIAL 10 MG IV (17:26)
[2024-02-04] MEDS: METOPROLOL TARTRATE 5MG/5ML VIAL 2.5 MG IV (17:44)
[2024-02-04] MEDS: ACETAMINOPHEN 325MG TAB 650 MG PO (18:12)
[2024-02-04] MEDS: SODIUM CHLORIDE 0.9% 10ML VIAL 10 ML IV (20:37)
[2024-02-04] MEDS: OLANZapine 5 MG ODT TABLET 10 MG SL (20:37)
[2024-02-04] MEDS: MIRTAZAPINE 15 MG TABLET 30 MG PO (20:37)
[2024-02-04] MEDS: PANTOPRAZOLE 40MG VIAL 40 MG IV (20:37)
[2024-02-05] VITALS: BP 147/82; PULSE 101; PULSE 90; RESP 17; TEMP 36.9; O2SAT 96
[2024-02-05 04:00] VITALS: BP 163/93; PULSE 100; PULSE 102; RESP 17; TEMP 36.7; O2SAT 96; BMI 25.1
[2024-02-05 06:43] LABS: Chloride 108 mmol/L (98-107)
[2024-02-05 06:44] LABS: Potassium 3.5 mmoL/L (3.5-5.1); Sodium 137 mmol/L (136-145)
[2024-02-05 06:46] LABS: Basophils # 0.1 K/mm3 (0-0.2); Basophils % 0.6 % (0.1-2.0); Eosinophils # 0.1 K/mm3 (0.0-0.4); Eosinophils % 1.4 % (0.1-12.0); Hematocrit 31.5 % (37.0-47.0); Hemoglobin 10.2 g/dL (12.2-16.2); Lymphocytes # 1.4 K/mm3 (0.7-4.5); Lymphocytes % 15.2 % (10-50); Mean Corpuscular HGB Conc 32.5 g/dL (31.8-35.4); Mean Corpuscular Hemoglobin 32.7 pg (27.0-31.2); Mean Corpuscular Volume 100.7 fl (81-99); Monocytes # 0.7 K/mm3 (0.1-1.0); Monocytes % 7.2 % (1.7-9.3); Neutrophils # 6.8 K/mm3 (1.8-7.8); Neutrophils % 75.6 % (37.0-80.0); Platelet Count 235 K/mm3 (142-424); Red Blood Count 3.13 M/mm3 (4.20-5.40); Red Cell Distribution Width 15.9 % (11.5-17.5)
[2024-02-05 06:47] LABS: Anion Gap 8.5 mEq/L (5-15); Blood Urea Nitrogen 12 mg/dl (7-17); Calcium 8.6 mg/dl (8.4-10.2); Carbon Dioxide 24 mmol/L (22.0-30.0); Creatinine Clearance Estimated 40 mL/min (50-200); Estimated Glomerular Filt Rate 95 ml/min (>60); GFR (African American) 115 ML/MIN (>60); Glucose 104 mg/dl (74-100)
[2024-02-05 06:52] LABS: C-Reactive Protein 107.5 mg/L (0-4)
[2024-02-05 08:00] VITALS: BP 109/66; PULSE 120; PULSE 127; RESP 22; TEMP 36.4; O2SAT 96
[2024-02-05] MEDS: VENLAFAXINE XR 75MG CAPSULE 75 MG PO (08:09)
[2024-02-05] MEDS: DOCUSATE SODIUM 10 ML/UDC UDC PO (08:09)
[2024-02-05] MEDS: OLANZapine 5 MG ODT TABLET 10 MG SL (08:09)
[2024-02-05] MEDS: CALCIUM CARBONATE 500MG CHEWTAB 200 MG PO (08:09)
[2024-02-05] MEDS: RIVASTIGMINE 4.6MG/24HR PATCH 1 EACH TD (08:09)
[2024-02-05] MEDS: ENOXAPARIN 40MG/0.4ML SYRINGE 40 MG SQ (08:09)
[2024-02-05] MEDS: FERROUS SULFATE 325MG TABLET 325 MG PO (08:09)
[2024-02-05] MEDS: SENNA 8.6MG TABLET 8.6 MG PO (08:09)
[2024-02-05 09:15] LABS: Procalcitonin 0.197 ng/mL (0.0-2.0)
--- NOTE | 2024-02-05 09:15 | P.DS_ITS ---
General Admission date:: 02/02/24 Discharge date: 02/05/24 HPI HPI HPI: This patient from [facility] nursing facility with past medical history of anemia, anxiety disorder, hyperlipidemia, dementia, depression, paranoid personality disorder, Alzheimer's disease, hypertension, generalized weakness, osteoporosis. Patient presents from nursing facility with SOB, tachycardia, confusion, decreased responsiveness. Staff states that patient unable to answer questions today and this is not like her. Patient also complaining of abdominal discomfort, and pain with urination. Patient's O2 sat durations 85% on room air. Patient presented to emergency room with heart rate 126, systolic blood pressure 106. Patient received fluid bolus with blood pressure increasing to 119/86. Disoriented to location/time. Patient able to answer simple questions without hesitation. Very agitated in emergency room. Denies shortness of breath, fevers, chills, chest pain. Hospital Course Hospital Course Hospital Course: Patient admitted to hospital and received sepsis workup. Patient had CTA chest done showing no signs of pulmonary embolus or acute infection. Patient had a respiratory PCR nasopharyngeal panel done, showing no signs of bacterial infection. Infection patient's urine analysis extremely suspicious for infection, and patient's urine culture ultimately grew out E. coli sensitive to IV meropenem, IV Rocephin, cefdinir and several other antibiotics. Patient ultimately diagnosed with urinary tract infection related sepsis, and patient maintained on antibiotics throughout hospitalization. Patient's inflammatory markers steadily trending downward. Patient ultimately discharged back to [facility] on 5 additional days of cefdinir, and when instructed to follow-up with primary care physician on outpatient basis. Exam Data for Last 24 hours Vital signs and Labs for Last 24 Hours: Temp Pulse Resp BP Pulse Ox O2 Del Method O2 Flow Rate 97.6 F 127 H 22 109/66 L 96 Room Air 2 02/05/24 08:00 02/05/24 08:00 02/05/24 08:00 02/05/24 08:00 02/05/24 08:00 02/05/24 08:00 02/03/24 11:00 Laboratory Results - last 24 hr 02/04/24 10:10: Vancomycin Trough 6.0 02/04/24 15:02: Vancomycin Peak 16.4 02/05/24 05:47: WBC 9.0, RBC 3.13 L, Hgb 10.2 L, Hct 31.5 L, MCV 100.7 H, MCH 32.7 H, MCHC 32.5, RDW 15.9, Plt Count 235, MPV 8.0, Neut % (Auto) 75.6, Lymph % (Auto) 15.2, Mckinley % (Auto) 7.2, Eos % (Auto) 1.4, Baso % (Auto) 0.6, Neut # (Auto) 6.8, Lymph # (Auto) 1.4, Mckinley # (Auto) 0.7, Eos # (Auto) 0.1, Baso # (Auto) 0.1, Sodium 137, Potassium 3.5, Chloride 108 H, Carbon Dioxide 24, Anion Gap 8.5, BUN 12, Creatinine 0.60, Estimated Creat Clear 40, Estimated GFR 95, Est GFR ( Amer) 115, Glucose 104 H, Calcium 8.6, Magnesium 2.0, C- Reactive Protein 107.5 H I & O for Last 24 hours: Intake & Output 02/02/24 02/03/24 02/04/24 02/05/24 23:59 23:59 23:59 23:59 Intake Total 330 / 2680 3698 / 3998 710 / 710 100 / 100 Output Total 0 / 500 1100 / 1100 700 / 700 250 / 250 Balance 330 / 2180 2598 / 2898 10 -150 / -150 Weight 58.74 kg 58.7 kg 61.87 kg 61.87 kg Microbiology Reports for the Last 24 Hours: Microbiology 02/02/24 06:35 Urine,Catheterized Urine Culture - Final Escherichia coli 02/02/24 06:32 Blood Blood Culture - Preliminary NO GROWTH AFTER 48 HOURS 02/02/24 06:27 Blood Blood Culture - Preliminary NO GROWTH AFTER 48 HOURS Constitutional Constitutional: no acute distress *Routine HEENT Exam Head: Present normocephalic Eye: Present EOMI ENT: Present mucous membranes moist *Routine Neck Exam Neck: Present supple and full ROM *Routine Respiratory Exam Respiratory: Present CTA bilaterally and normal respiratory effort *Routine Cardiovascular Exam Cardiovascular: Present RRR, Normal S1 and Normal S2 *Routine Abdominal Exam Abdominal: Present soft and normoactive bowel sounds *Routine Extremities Exam Extremities: Present full ROM and normal capillary refill *Routine Skin Exam Skin: Present intact and dry *Routine Neurological Exam Neurological: Present alert and oriented X3 Results Data Completed and Pending Labs on day of discharge: Labs from last 24 hours 02/05/24 02/04/24 02/04/24 05:47 15:02 10:10 WBC 9.0 RBC 3.13 L Hgb 10.2 L Hct 31.5 L MCV 100.7 H MCH 32.7 H MCHC 32.5 RDW 15.9 Plt Count 235 MPV 8.0 Neut % (Auto) 75.6 Lymph % (Auto) 15.2 Mckinley % (Auto) 7.2 Eos % (Auto) 1.4 Baso % (Auto) 0.6 Neut # (Auto) 6.8 Lymph # (Auto) 1.4 Mckinley # (Auto) 0.7 Eos # (Auto) 0.1 Baso # (Auto) 0.1 Sodium 137 Potassium 3.5 Chloride 108 H Carbon Dioxide 24 Anion Gap 8.5 BUN 12 Creatinine 0.60 Estimated Creat Clear 40 Estimated GFR 95 Est GFR ( Amer) 115 Glucose 104 H Calcium 8.6 Magnesium 2.0 C-Reactive Protein 107.5 H Vancomycin Peak 16.4 Vancomycin Trough 6.0 Preliminary micro results at discharge 02/02/24 06:32 Blood Culture - Preliminary Blood NO GROWTH AFTER 48 HOURS 02/02/24 06:27 Blood Culture - Preliminary Blood NO GROWTH AFTER 48 HOURS Impressions Impressions: Ordering Physician: Gigi Munroe MD Date of Service: 02/03/24 Procedure(s): CT angio chest PE protocol Accession Number(s): [id number] cc: Gigi Munroe MD; Anjel Linda MD; Nima Lemon MD~ PROCEDURE INFORMATION: Exam: CTA Chest With Contrast Exam date and time: 02/03/2024 6:20 PM Age: 84 years old Clinical indication: Other: Sinus tach; Additional info: R/O pe in sepsic patient w/ persistent sinus tach TECHNIQUE: Imaging protocol: Computed tomographic angiography of the chest with contrast. Exam focused on the arteries. 3D rendering (Not supervised by radiologist): MIP and/or 3D reconstructed images were created by the technologist. Radiation optimization: All CT scans at this facility use at least one of these dose optimization techniques: automated exposure control; mA and/or kV adjustment per patient size (includes targeted exams where dose is matched to clinical indication); or iterative reconstruction. Contrast material: ISOVUE; Contrast volume: 70 ml; Contrast route: INTRAVENOUS (IV); COMPARISON: CT ANGIO CHEST 02/02/2024 7:22 AM FINDINGS: Limitations: Mild motion artifact could obscure small peripheral pulmonary emboli. Pulmonary arteries: No visible pulmonary emboli. Normal caliber pulmonary arteries. Aorta: Mild thoracic aortic atherosclerotic disease. Unchanged mildly ectatic ascending thoracic aorta measuring up to 3.8 cm. Lungs: Mild bilateral dependent atelectasis. Pleural spaces: Small bilateral pleural effusions. Heart: Unremarkable. No cardiomegaly. No pericardial effusion. Coronary arteries: Mild coronary artery calcification. Lymph nodes: Unremarkable. No enlarged lymph nodes. Diaphragm: Small hiatal hernia. Bones/joints: Mild upper thoracic spine levoscoliosis. Mild multilevel degenerative disc disease. Soft tissues: Unremarkable. IMPRESSION: 1. Mild motion artifact could obscure small peripheral pulmonary emboli. 2. No visible pulmonary emboli. 3. Small bilateral pleural effusions. 4. Mild bilateral atelectasis. Ordering Physician: Ladan Bear MD Date of Service: 02/02/24 Procedure(s): CT head/brain wo [facility] Accession Number(s): [id number] cc: Ilir Higgins MD; Nima Lemon MD; Ladan Bear MD~ FINAL REPORT TECHNIQUE: multiple axial CT images were performed from the foramen magnum to the vertex without enhancement. This study was performed with techniques to keep radiation doses as low as reasonably achievable (ALARA). Individualized dose reduction techniques using automated exposure control or adjustment of mA and/or kV according to the patient's size were employed. CLINICAL HISTORY: altered mental status COMPARISON: 11/09/2023 FINDINGS: There is moderate atrophy with proportional ventriculomegaly. There is periventricular white matter change likely related to small vessel disease. There is no evidence of hemorrhage. No masses are identified. No extra-axial fluid is seen. The sinuses are normal. IMPRESSION: Atrophy and chronic changes without acute process. Ordering Physician: Ladan Bear MD Date of Service: 02/02/24 Procedure(s): CT cervical spine wo con Accession Number(s): [id number] cc: Ilir Higgins MD; Nima Lemon MD; Ladan Bear MD~ FINAL REPORT TECHNIQUE: Axial images were obtained of the cervical spine by computed tomography. Coronal and sagittal reconstruction process performed. This study was performed with techniques to keep radiation doses as low as reasonably achievable (ALARA). Individualized dose reduction techniques using automated exposure control or adjustment of mA and/or kV according to the patient''s size were employed. CLINICAL HISTORY: altered mental status COMPARISON: 11/09/2023 FINDINGS: Cervical vertebrae show normal height. There is advanced disc space narrowing at C5-6 with posterior osteophyte formation. There is bilateral facet hypertrophy throughout the cervical spine, left greater than right. There is no malalignment. The facets are properly aligned. IMPRESSION: Hypertrophic change of degenerative disc disease, most evident at C5-6. Ordering Physician: Ladan Bear MD Date of Service: 02/02/24 Procedure(s): CT angio abdomen pelvis Accession Number(s): [id number] cc: Ilir Higgins MD; Nima Lemon MD; Ladan Bear MD~ FINAL REPORT TECHNIQUE: Pre-and postcontrast images of the abdomen and pelvis were performed by computed tomography. Extensive 3-D reconstruction images were performed. A CTA was performed. This study was performed with techniques to keep radiation doses as low as reasonably achievable (ALARA). Individualized dose reduction techniques using automated exposure control or adjustment of mA and/or kV according to the patient''s size were employed. CLINICAL HISTORY: pain, ams COMPARISON: 11/09/2023 FINDINGS: ABDOMEN/PELVIS: Precontrast images demonstrate no evidence of nephrolithiasis. No adrenal masses are identified. The liver, spleen and pancreas are unremarkable. The gallbladder is present. There is a large amount of retained stool throughout the colon. Streak artifact is seen from right hip prosthesis. The uterus is retroverted. There are calcified phleboliths in the floor of the pelvis. There is diverticulosis of the descending and sigmoid colon without evidence of diverticulitis. CTA: The abdominal aorta is proper caliber. The SMA, celiac axis, and DEE DEE are patent. There is no significant stenosis or calcification. The renal arteries are patent bilaterally. The iliacs are unremarkable. IMPRESSION: Constipation. Descending and sigmoid diverticulosis. DS: Diagnosis Discharge Diagnosis (1) Sepsis: Status: Acute Code(s): A41.9 - Sepsis, unspecified organism (2) Acidosis, lactic: Status: Acute Code(s): E87.20 - Acidosis, unspecified (3) Urinary tract infection: Status: Acute Code(s): N39.0 - Urinary tract infection, site not specified (4) Alzheimer disease: Status: Acute Code(s): G30.9 - Alzheimer's disease, unspecified; F02.80 - Dementia in other diseases classified elsewhere, unspecified severity, without behavioral disturbance, psychotic disturbance, mood disturbance, and anxiety Meds Home Medications and Allergies Home Medications ?Medication ?Instructions ?Recorded ?Confirmed ?Type ondansetron HCl 4 mg tablet 4 mg PO Q6HP PRN Nausea 01/12/23 02/02/24 History Saccharomyces boulardii 250 mg 250 mg PO DAILY 05/22/23 02/02/24 History capsule (Florastor) benzonatate 100 mg capsule 100 mg PO TIDP PRN Cough 05/22/23 02/02/24 History calcium carbonate (Antacid 200 mg PO DAILY 05/22/23 02/02/24 History (calcium carbonate)) guaifenesin 600 mg tablet, 600 mg PO BIDP PRN Cough 05/22/23 02/02/24 History extended release 12 hr (Mucinex) mirtazapine 30 mg tablet (Remeron) 30 mg PO HS 05/22/23 02/02/24 History sennosides 8.6 mg tablet (senna) 17.2 mg PO DAILYP PRN Constipation 05/22/23 02/02/24 History acetaminophen 500 mg tablet 500 mg PO TID Pain 11/03/23 02/02/24 History ferrous sulfate 325 mg (65 mg 325 mg PO DAILY #90 tabs 12/29/23 02/02/24 Rx iron) tablet olanzapine 10 mg tablet 10 mg PO BID #60 tabs 01/05/24 02/02/24 Rx venlafaxine 75 mg capsule,extended 75 mg PO DAILY #90 caps 01/05/24 02/02/24 Rx release 24 hr aluminum hydrox-magnesium carb 95 30 ml PO Q4HP PRN Acid Reflux 02/02/24 02/02/24 History mg-358 mg/15 mL oral suspension (Acid Gone Antacid) rivastigmine 4.6 mg/24 hour 4.6 mg transdermal DAILY 02/02/24 02/02/24 History transdermal patch cefdinir 300 mg capsule 300 mg PO BID #10 caps 02/05/24 Rx New Prescriptions to Start Prescriptions: Gigi Howard Allergy/AdvReac Type Severity Reaction Status Date / Time Opioids - Morphine Analogues Allergy Severe Angioedema Verified 01/05/24 14:47 oxycodone Allergy Verified 02/02/24 11:04 Discharge Plan Disposition Patient Disposition: [facility]mediate Care Fac Condition: Fair Discharge Order Discharge Orders: Discharge Order (Routine); Ordered 02/05/24 Ordered By: Gigi Munroe Follow up Plan Follow up with: Nima Lemon MD [Primary Care Provider] - 1 week (Will follow up with PT at the [facility]) Prescriptions/Medication Reconciliation: New cefdinir 300 mg capsule 300 mg PO BID Qty: 10 0RF Continued venlafaxine 75 mg capsule,extended release 24hr 75 mg PO DAILY Qty: 90 3RF sennosides [senna] 8.6 mg tablet 17.2 mg PO DAILYP PRN (Reason: Constipation) Saccharomyces boulardii [Florastor] 250 mg capsule 250 mg PO DAILY mirtazapine [Remeron] 30 mg tablet 30 mg PO HS calcium carbonate [Antacid (calcium carbonate)] 200 mg calcium (500 mg) tablet,chewable 200 mg PO DAILY benzonatate 100 mg capsule 100 mg PO TIDP PRN (Reason: Cough) guaifenesin [Mucinex] 600 mg tablet extended release 12hr 600 mg PO BIDP PRN (Reason: Cough) olanzapine 10 mg tablet 10 mg PO BID Qty: 60 2RF acetaminophen 500 mg tablet 500 mg PO TID ferrous sulfate 325 mg (65 mg iron) tablet 325 mg PO DAILY Qty: 90 3RF rivastigmine 4.6 mg/24 hour Patch 24 Hour 4.6 mg TRANSDERMAL DAILY Acid Gone Antacid 95-358 mg/15 mL suspension 30 ml PO Q4HP PRN (Reason: Acid Reflux) ondansetron HCl 4 mg Tablet 4 mg PO Q6HP PRN (Reason: Nausea) Problem Reconciliation Problems Reviewed?: Yes Patient Discharge Instructions ACTIVITY: Continue current activity DIET: continue same diet Patient Instructions: DI for Urinary Tract Infection (UTI), DI for Sepsis -- Adult Print Language: Greenlandic Providers Primary Care Provider: Nima Lemon Admit Provider: Gigi Munroe Attending Provider: Gigi Munroe
[2024-02-05] MEDS: CEFTRIAXONE SODIUM 2 GM in 0.9 % SODIUM CHLORIDE 100 ML IV (13:02)
== END 2024-02-05 14:13 | DRG 872 ==
LOC: ER 08:57 → 2ND 09:36
PROVIDERS: Emergency Medicine; Admitting Provider Internal Medicine; Emergency Provider Emergency Medicine; PCP Family Medicine; Visit Provider Internal Medicine
DX: A41.51 Sepsis due to Escherichia coli [E. coli] (principal); N39.0 Urinary tract infection, site not specified; E87.20 Acidosis, unspecified; A09 Infectious gastroenteritis and colitis, unspecified; A04.72 Enterocolitis due to Clostridium difficile, not specified as recurrent; G30.9 Alzheimer's disease, unspecified; F02.80 Dementia in other diseases classified elsewhere, unspecified severity, without behavioral disturbance, psychotic disturbance, mood disturbance, and anxiety; F60.0 Paranoid personality disorder; I10 Essential (primary) hypertension; E78.5 Hyperlipidemia, unspecified; F32.A Depression, unspecified; Z96.643 Presence of artificial hip joint, bilateral
CPT/HCPCS: 36415; 70450; 71275; 72125; 74174; 80048; 80053; 80202; 80307; 80320; 80329; 81001; 82803; 83605; 83690; 83735; 84145; 84443; 84484; 85025; 86140; 87040; 87081; 87086; 87088; 87186; 87581; 87632; 87635; 87798; 93005; 99291; G0480; J0131; J0696; J0780; J1200; J1630; J1650; J2060; J2185; J2543; J3370; J7030; J7050; J7120; Q9967

== ENCOUNTER 2024-03-21 11:40 | Emergency (ER) | payer MEDICARE, MEDICAID, SELFPAY ==
[2024-03-21] VITALS (8 sets, daily range): BP systolic 109–129; BP diastolic 51–74; PULSE 74–139; RESP 15–20; TEMP 36.9–37; O2SAT 94–100; BMI 22.2
--- NOTE | 2024-03-21 11:52 | CT_ITS ---
FINAL REPORT CLINICAL HISTORY: fall, head injury COMPARISON: 02/02/2024 FINDINGS: Axial images of the head were obtained without contrast. Coronal reformatted images were also obtained. This study was performed with techniques to keep radiation doses as low as reasonably achievable (ALARA). Individualized dose reduction techniques using automated exposure control or adjustment of mA and/or kV according to the patient''s size were employed. There is generalized age-appropriate atrophy. Periventricular low-attenuation areas are seen consistent with mild chronic ischemic changes. There is mild, stable ventriculomegaly. There is no evidence of intracranial hemorrhage or mass. There is no evidence of acute infarct. There is no evidence of shift of the midline structures. No skull abnormality is seen on the bone window images. A right frontal scalp hematoma is noted. IMPRESSION: Atrophy and mild periventricular chronic ischemic changes. No acute intracranial abnormality identified. Reviewed, Interpreted and Dictated by Chicho Oliveira III, MD Transcribed by Bertha Littlejohn Authenticated and [facility]
--- NOTE | 2024-03-21 11:53 | CT_ITS ---
FINAL REPORT CLINICAL HISTORY: fall, head injury COMPARISON: 11/09/2023 FINDINGS: Axial imaging of the lumbar spine was obtained without contrast. Sagittal and coronal reformatted images were also obtained and reviewed.This study was performed with techniques to keep radiation doses as low as reasonably achievable (ALARA). Individualized dose reduction techniques using automated exposure control or adjustment of mA and/or kV according to the patient''s size were employed. There is no acute lumbar spine fracture. There are comminuted fractures of the sacral ala and sacral bones with posterior displacement of the distal fracture fragment measuring 10 mm. This is new from October 2023 but favored to be subacute. The vertebral alignment is normal. The disc spaces are preserved. There is no evidence of significant central canal stenosis. IMPRESSION: No acute lumbar spine fracture. Comminuted fractures of the sacral ala and sacral bones new from prior but favored to be subacute. Reviewed, Interpreted and Dictated by Chicho Oliveira III, MD Transcribed by Wendy Moore Authenticated and . [facility]
--- NOTE | 2024-03-21 11:53 | XR_ITS ---
FINAL REPORT CLINICAL HISTORY: fall COMPARISON: 07/25/2023 FINDINGS: SINGLE VIEW PELVIS: A single view of the pelvis was obtained. There are postoperative changes in the right hip and left femur. There is no definite acute fracture. Sclerosis of the sacrum may represent subacute fracture. Visualized joint spaces are normally aligned. Soft tissues are unremarkable. IMPRESSION: Sclerosis of the sacrum may represent subacute fracture. No definite acute fracture. Reviewed, Interpreted and Dictated by Chicho Oliveira III, MD Transcribed by Wendy Moore Authenticated and . [facility]
--- NOTE | 2024-03-21 11:53 | CT_ITS ---
FINAL REPORT CLINICAL HISTORY: fall, neck pain COMPARISON: 02/02/2024 FINDINGS: Axial CT images of the cervical spine were obtained without contrast. Sagittal and coronal reformatted images were also obtained. This study was performed with techniques to keep radiation doses as low as reasonably achievable (ALARA). Individualized dose reduction techniques using automated exposure control or adjustment of mA and/or kV according to the patient''s size were employed. Severe motion limits sensitivity and mimics fractures at C2, C3, and C4. There is no definite fracture. There is mild anterolisthesis of C4 on C5. There is moderate multilevel degenerative change, greatest at C5-6. There is no significant central canal stenosis. No paraspinous soft tissue abnormality is seen. Limited images of the upper thorax are unremarkable. IMPRESSION: Limited exam secondary to severe motion without definite acute bony abnormality. Reviewed, Interpreted and Dictated by Chicho Oliveira III, MD Transcribed by Wendy Moore Authenticated and [facility][1]
--- NOTE | 2024-03-21 11:53 | CT_ITS ---
FINAL REPORT CLINICAL HISTORY: fall, head injury COMPARISON: 11/09/2023 FINDINGS: Axial CT images of the thoracic spine were obtained without contrast. Sagittal and coronal reformatted images were also obtained. This study was performed with techniques to keep radiation doses as low as reasonably achievable (ALARA). Individualized dose reduction techniques using automated exposure control or adjustment of mA and/or kV according to the patient''s size were employed. There is motion artifact on many of the images decreasing sensitivity of this exam. Dextroscoliosis is noted. There is no evidence of fracture. There is moderate degenerative change. The vertebral alignment is normal. There is no evidence of significant canal stenosis. No paraspinous soft tissue abnormality is identified. IMPRESSION: No fracture or acute bony abnormality. No significant central canal stenosis. Reviewed, Interpreted and Dictated by Chicho Oliveira III, MD Transcribed by Wendy Moore Authenticated and [facility]
--- NOTE | 2024-03-21 11:53 | XR_ITS ---
FINAL REPORT CLINICAL HISTORY: fall COMPARISON: 04/12/2023 FINDINGS: A single portable view of the chest was obtained. The heart size and pulmonary vascularity are within normal limits. The mediastinum is within normal limits. No acute pulmonary abnormality is identified. The bony thorax is intact. IMPRESSION: No active cardiopulmonary disease. Reviewed, Interpreted and Dictated by Chicho Oliveira III, MD Transcribed by Skylar Jamil Authenticated and [facility]
--- NOTE | 2024-03-21 12:02 | ED_ITS ---
Discharge Plan Disposition Patient Disposition: Xfer Short-Term Hosp Chief Complaint: Fall Prescriptions Prescriptions: No Action venlafaxine 75 mg capsule,extended release 24hr 75 mg PO DAILY Qty: 90 3RF sennosides [senna] 8.6 mg tablet 17.2 mg PO DAILYP PRN (Reason: Constipation) Saccharomyces boulardii [Florastor] 250 mg capsule 250 mg PO DAILY mirtazapine [Remeron] 30 mg tablet 30 mg PO HS calcium carbonate [Antacid (calcium carbonate)] 200 mg calcium (500 mg) tablet,chewable 200 mg PO DAILY benzonatate 100 mg capsule 100 mg PO TIDP PRN (Reason: Cough) guaifenesin [Mucinex] 600 mg tablet extended release 12hr 600 mg PO BIDP PRN (Reason: Cough) olanzapine 10 mg tablet 10 mg PO BID Qty: 60 2RF acetaminophen 500 mg tablet 500 mg PO TID ferrous sulfate 325 mg (65 mg iron) tablet 325 mg PO DAILY Qty: 90 3RF rivastigmine 4.6 mg/24 hour Patch 24 Hour 4.6 mg TRANSDERMAL DAILY Acid Gone Antacid 95-358 mg/15 mL suspension 30 ml PO Q4HP PRN (Reason: Acid Reflux) cefdinir 300 mg capsule 300 mg PO BID Qty: 10 0RF ondansetron HCl 4 mg Tablet 4 mg PO Q6HP PRN (Reason: Nausea) Referrals Follow up/Referrals: Provider,Referral, MD [Primary Care Provider] - See instructions Clinical Impressions Clinical Impression: Fall, Acute renal failure (ARF), Acute hypernatremia, Acute UTI Stand Alone Forms Stand Alone Forms: Transfer Record - ED Print Language Print Language: Georgian Discharge ED Provider: Luca Acosta General Adult HPI General Chief complaint: Fall Stated complaint: Fall Time Seen by Provider: 03/21/24 11:41 Mode of Arrival: EMS Source of Information: EMS Limitations: No Limitations Description of Symptoms (Recalled from ER Triage Doc. by RN): Patient presents to ED via [facility] with an unwitnessed fall at [facility]. Fall occured around 30 minutes before arrival. [facility] Patient has a hematoma to the right side of her head and a few small skin tears on her right arm. Patient is baseline confused and unable to answer questions. History of Present Illness HPI narrative: This is an 84-year-old female with a history of hypertension and Alzheimer's dementia who presents after being found down after an unwitnessed fall next to [facility] nursing [facility] the [facility]. Fall occurred at an estimated 30 minutes prior to arrival. Had a hematoma on the right frontal forehead and a few small skin tears. She is currently at her baseline and unable to answer any questions. Was also noted to be tachycardic to the 130s and hyperglycemic to the 200s. Related Data Home Medications ?Medication ?Instructions ?Recorded ?Confirmed ondansetron HCl 4 mg tablet 4 mg PO Q6HP PRN Nausea 01/12/23 03/16/24 Saccharomyces boulardii 250 mg 250 mg PO DAILY 05/22/23 03/16/24 capsule (Florastor) benzonatate 100 mg capsule 100 mg PO TIDP PRN Cough 05/22/23 03/16/24 calcium carbonate (Antacid 200 mg PO DAILY 05/22/23 03/16/24 (calcium carbonate)) guaifenesin 600 mg tablet, 600 mg PO BIDP PRN Cough 05/22/23 03/16/24 extended release 12 hr (Mucinex) mirtazapine 30 mg tablet (Remeron) 30 mg PO HS 05/22/23 03/16/24 sennosides 8.6 mg tablet (senna) 17.2 mg PO DAILYP PRN Constipation 05/22/23 03/16/24 acetaminophen 500 mg tablet 500 mg PO TID Pain 11/03/23 03/16/24 aluminum hydrox-magnesium carb 95 30 ml PO Q4HP PRN Acid Reflux 02/02/24 03/16/24 mg-358 mg/15 mL oral suspension (Acid Gone Antacid) rivastigmine 4.6 mg/24 hour 4.6 mg transdermal DAILY 02/02/24 03/16/24 transdermal patch Previous Rx's ?Medication ?Instructions ?Recorded ferrous sulfate 325 mg (65 mg 325 mg PO DAILY #90 tabs 12/29/23 iron) tablet olanzapine 10 mg tablet 10 mg PO BID #60 tabs 01/05/24 venlafaxine 75 mg capsule,extended 75 mg PO DAILY #90 caps 01/05/24 release 24 hr cefdinir 300 mg capsule 300 mg PO BID #10 caps 02/05/24 Allergies Allergy/AdvReac Type Severity Reaction Status Date / Time Opioids - Morphine Analogues Allergy Severe Angioedema Verified 03/16/24 11:31 oxycodone Allergy Verified 03/16/24 11:31 [facility] Disclaimer: The information contained in this section may have been updated after the patient was seen, as this information can be updated by other users. Medical History Back pain Hip pain Fall Fall Acidosis, lactic Sepsis UTI (urinary tract infection) Hyperlipidemia LDL goal <100 Sepsis Urinary tract infection Acute hip pain Left hip pain No significant past medical history C. difficile diarrhea Closed intertrochanteric fracture left 12/2022 Surgical History History of right hip replacement History of total right hip replacement History of appendectomy Family History Other No significant family history Social History Smoking Status: Never smoker alcohol intake: former substance use type: denies use current occupational status: retired Travel in the last 8 weeks: None household members: family housing: house marital status: education level: high school Hx Recent Travel: No sexually active: No Other Medical History Have you received the Flu Vaccine for this season: No Have you received the Pneumonia Vaccine: Yes ROS Obtained: Yes All systems reviewed & no additional complaints except as documented Physical Exam General General appearance: alert and in no apparent distress Head Head exam: other (Right frontal hematoma, small skin tear) Eye Eye exam: Present normal appearance, PERRL and EOMI Neck Neck exam: Present other (C-collar in place) Chest Chest inspection: Present normal inspection; Absent tenderness Respiratory Respiratory exam: Present normal lung sounds bilaterally; Absent respiratory distress Cardiovascular Cardiovascular exam: Present normal rhythm and tachycardia Abdominal Exam Abdominal exam: Present soft and distention; Absent tenderness, guarding or rebound Extremities Exam Extremities exam: Present normal inspection and full ROM; Absent tenderness Neurological Exam Neurological exam: Present alert and oriented X3 Skin Skin exam: Present warm and dry Medical Decision Making Medical Records Medical records reviewed: Yes I reviewed the patient's medical records. Screening: Per USPSTF and CDC recommendations, given the prevalence of disease in our region, it is our hospital?s policy to screen for HIV and viral Hepatitis for all patients aged 18 and over and those with ongoing risk factors. Aman Inquiry Pt receiving controlled substance: No Vital Signs: 03/21/24 11:40 03/21/24 12:30 03/21/24 13:00 Temperature 98.4 F Temperature Source Axillary Pulse Rate 97 H Pulse Rate [Right Brachial] 139 H Respiratory Rate 20 20 17 Blood Pressure 109/65 L 116/51 L Blood Pressure [Right Arm] 118/74 Blood Pressure Mean 75 Blood Pressure Mean [Right Arm] 88 Blood Pressure Source [Right Arm] Automatic Cuff Blood Pressure Position [Right Arm] Supine 02 Sat by Pulse Oximetry 94 L 99 Oxygen Delivery Method Room Air Room Air Lab Data Lab Results 03/21/24 11:40: WBC 12.2 H, RBC 4.53, Hgb 14.4, Hct 45.9, MCV 101.3 H, MCH 31.8 H, MCHC 31.4 L, RDW 15.7, Plt Count 258, MPV 10.4, Neut % (Auto) 69.7, Lymph % (Auto) 24.1, Mora % (Auto) 3.3, Eos % (Auto) 1.9, Baso % (Auto) 0.9, Neut # (Auto) 8.5 H, Lymph # (Auto) 2.9, Mora # (Auto) 0.4, Eos # (Auto) 0.2, Baso # (Auto) 0.1, Sodium 161 H*, Potassium 4.5, Chloride 122 H, Carbon Dioxide 22, A nion Gap 21.5 H, BUN 92 H, Creatinine 1.90 H, Estimated Creat Clear 17, E stimated GFR 25 L, Est GFR ( Amer) 30 L, Glucose 207 H, Calcium 10.1, M agnesium 3.1 H, Total Bilirubin 0.7, AST 40 H, ALT 42, Alkaline Phosphatase 152 H, Troponin I < 0.01, Total Protein 8.6 H, Albumin 4.3, Globulin 4.3 H, A lbumin/Globulin Ratio 1.0 L, Acetone Level None detected 03/21/24 12:13: VBG pH 7.39, VBG pCO2 33.5 L, VBG pO2 57.9 H, VBG HCO3 19.7 L, V BG Total CO2 20.7 L, VBG O2 Saturation 90.6 H, VBG Base Excess -5.3 L, VBG Lactic Acid 3.7 H 03/21/24 12:52: Urine Color Brown, Urine Appearance Turbid, Urine pH 8.0, Ur Specific [place]ao 1.020, Urine Protein 3+ A, Urine Glucose (UA) Negative, Urine Ketones Trace, Urine Blood 2+ A, Urine Nitrate Negative, Urine Bilirubin 1+ A, Urine Urobilinogen 1.0, Ur Leukocyte Esterase 2+ A, Urine RBC 5-10, Urine WBC 10-20, Ur Squamous Epith Cells 5-10, Calcium Oxalate Crystal 1+, Amorphous Sediment 2+, Urine Bacteria 4+ 03/21/24 11:40 03/21/24 11:40 Orders (Tests/Meds): ED MEDICATIONS Generic Name Dose Route Start Last Admin Trade Name Freq PRN Reason Stop Dose Admin Ceftriaxone Sodium 2 gm/ 100 mls @ 200 mls/hr 03/21/24 13:30 03/21/24 13:23 Sodium Chloride IV 03/31/24 13:29 200 mls/hr Q24H JASPER Administration Discontinued Medications Generic Name Dose Route Start Last Admin Trade Name Freq PRN Reason Stop Dose Admin Lactated Ringer's 500 mls @ 999 mls/hr 03/21/24 12:09 03/21/24 12:14 Lactated Ringer's 500ml IV 03/21/24 12:39 999 mls/hr .Q31M ONE Administration Lactated Ringer's 500 mls @ 999 mls/hr 03/21/24 13:46 Lactated Ringer's 500ml IV 03/21/24 14:16 .Q31M ONE ORDERS Category Date Time Status CT cervical spine wo con Stat Cat Scan 03/21/24 11:[address] head/brain wo con Stat Cat Scan 03/21/24 11:[address] lumbar spine wo con Stat Cat Scan 03/21/24 11:[address] thoracic spine wo con Stat Cat Scan 03/21/24 11:53 Completed Chest XR -- portable [XR chest portable] Stat Exams 03/21/24 11:53 Completed Pelvis XR 1-2 views [XR pelvis 1-2V] Stat Exams 03/21/24 11:53 Completed Acetone, Serum (Rapid) Stat Lab 03/21/24 11:40 Completed BMP [Basic Metabolic Panel] Q2H Lab 03/21/24 14:28 Received BMP [Basic Metabolic Panel] Q2H Lab 03/21/24 15:19 Ordered CBC w/Auto Diff [Complete Blood Count Auto Diff] Stat Lab 03/21/24 11:40 Completed CMP [Comprehensive Metabolic Panel] Stat Lab 03/21/24 11:40 Completed Magnesium Stat Lab 03/21/24 11:40 Completed Troponin I Q3H Lab 03/21/24 15:00 Ordered Troponin I Q3H Lab 03/21/24 18:00 Ordered Troponin I Stat Lab 03/21/24 11:40 Completed Urinalysis and Microscopic Stat Lab 03/21/24 12:52 Completed Blood Culture Stat Micro 03/21/24 12:57 Received Urine Culture Stat Micro 03/21/24 12:52 Received VBG [Venous Blood Gas] Stat RT 03/21/24 12:13 Completed ECG Data Tracing #1: I reviewed this ECG and interpreted as documented below: Sinus tachycardia at a rate of 108, QTc 405, normal axis, no STEMI Medical Decision Narrative: In summary, this 84-year-old female with a past medical history of hypertension and Alzheimer's dementia presents to the emergency department today with unwitnessed fall and head injury. On initial evaluation patient is afebrile, hemodynamically stable, tachycardic to 130s, at baseline mental status. Differential diagnosis includes but is not limited to intracranial hemorrhage, skull fracture, spinal injury, long bone fracture, UTI. Based on these concerns, I ordered CBC, CMP, urinalysis, PT/INR, magnesium, troponin, chest x-ray, pelvis x-ray, CT head, CT C/T/L-spine without IV contrast. ECG personally interpreted as noted above. Labs personally reviewed demonstrate hypernatremia at 161 with a previous on 02/04 at 137, anion gap of 21, BUN of 92, creatinine of 1.9 (PETE, baseline 0.8), glucose 207, magnesium 3.1. Administered 500 cc LR (got 500 with EMS prior to arrival). Added VBG and acetones which revealed no ketonemia and normal venous pH. Lactate 3.7. Troponin undetectable. UA shows likely UTI w/ 10-20 WBCs. Gave 2 g of ceftriaxone for UTI. XR personally interpreted demonstrates no acute cardiopulmonary or pelvic pathology. CT imaging personally interpreted demonstrates no acute intracranial pathology, no acute spinal pathology. Radiology report likely old pelvic fractures. I had an interactive discussion with Dr. Mai at [facility] given that we have no beds at [facility] and no nephrology who would be able to perform hemodialysis should this be necessary during patient's admission, which is likely. Patient was accepted for transfer to [place]. Remained stable throughout her stay in the emergency department. Critical Care Critical Care Time Critical Care Time: No
[2024-03-21 12:03] LABS: Albumin Level 4.3 g/dl (3.5-5.0); Basophils # 0.1 K/mm3 (0-0.2); Basophils % 0.9 % (0.1-2.0); Chloride 122 mmol/L (98-107); Eosinophils # 0.2 K/mm3 (0.0-0.4); Eosinophils % 1.9 % (0.1-12.0); Hematocrit 45.9 % (37.0-47.0); Hemoglobin 14.4 g/dL (12.2-16.2); Lymphocytes # 2.9 K/mm3 (0.7-4.5); Lymphocytes % 24.1 % (10-50); Mean Corpuscular HGB Conc 31.4 g/dL (31.8-35.4); Mean Corpuscular Hemoglobin 31.8 pg (27.0-31.2); Mean Corpuscular Volume 101.3 fl (81-99); Mean Platelet Volume 10.4 fl (7.4-10.4); Monocytes # 0.4 K/mm3 (0.1-1.0); Monocytes % 3.3 % (1.7-9.3); Neutrophils # 8.5 K/mm3 (1.8-7.8); Neutrophils % 69.7 % (37.0-80.0); Platelet Count 258 K/mm3 (142-424); Red Blood Count 4.53 M/mm3 (4.20-5.40); Red Cell Distribution Width 15.7 % (11.5-17.5); White Blood Count 12.2 K/mm3 (4.8-10.8)
[2024-03-21 12:04] LABS: Potassium 4.5 mmoL/L (3.5-5.1)
[2024-03-21 12:06] LABS: Alanine Aminotransferase 42 U/L (12-78); Alkaline Phosphatase 152 U/L (38-126); Anion Gap 21.5 mEq/L (5-15); Aspartate Amino Transferase 40 U/L (14-36); Bilirubin,Total 0.7 mg/dl (0.2-1.3); Carbon Dioxide 22 mmol/L (22.0-30.0); Creatinine Clearance Estimated 17 mL/min (50-200); Estimated Glomerular Filt Rate 25 ml/min (>60); GFR (African American) 30 ML/MIN (>60); Globulin 4.3 g/dL (1.3-3.2); Total Protein,Serum 8.6 g/dl (6.3-8.2)
[2024-03-21 12:07] LABS: Calcium 10.1 mg/dl (8.4-10.2); Glucose 207 mg/dl (74-100); Magnesium 3.1 mg/dl (1.6-2.3)
[2024-03-21 12:08] LABS: Sodium 161 mmol/L (136-145)
[2024-03-21 12:09] LABS: Blood Urea Nitrogen 92 mg/dl (7-17)
[2024-03-21] MEDS: RINGERS SOLUTION,LACTATED 500 ML 999 ML IV ×2 (12:14→15:10)
[2024-03-21 12:18] LABS: Troponin I < 0.01 ng/ml (0.00-0.034)
--- NOTE | 2024-03-21 12:32 | ECG_ITS ---
APPROVED REPORT Exam: Resting ECG HR:108 bpm ECG Measurements Heart Rate 108 AXES WY 130 P 85 QRSd 86 QRS 66 QT 341 T 79 QTc 405 Conclusion Sinus tachycardia Electronically signed by : JEFFREY LUGO, 03/24/2024 14:54:28
[2024-03-21 12:37] LABS: Acetone, Serum (Rapid) None Detected (None Detect)
--- NOTE | 2024-03-21 12:37 | PC.NURSE ---
VBG obtained and RT notified
[2024-03-21 12:48] LABS: Lactate Venous 3.7 mmol/L (0.4-2.0); VBG Base Excess -5.3 mmol/L (-2.4-2.3); VBG HCO3 19.7 mmol/L (23-30); VBG Oxygen Saturation 90.6 % (50-70); VBG PCO2 33.5 mmol/L (35-51); VBG PH 7.39 mmol/L (7.31-7.41); VBG PO2 57.9 mmol/L (28-40); VBG Total CO2 20.7 mmol/L (23-27)
[2024-03-21 12:58] LABS: Microscopic, Urine URINE MICROSCOPIC (MICROSCOPIC)
--- NOTE | 2024-03-21 13:00 | PC.NURSE ---
Changed pt soiled brief
[2024-03-21 13:14] LABS: Appearance,Urine TURBID (Clear); Blood, Urine 2+ (Negative); Color,Urine BROWN (Yellow); Glucose,Urine (UA) Negative (Negative); Ketones,Urine TRACE (Negative); Leukocyte Esterase,Urine 2+ (Negative); Nitrate,Urine Negative (Negative); Protein,Urine 3+ (Negative)
[2024-03-21] MEDS: CEFTRIAXONE SODIUM 2 GM in 0.9 % SODIUM CHLORIDE 100 ML IV (13:23)
[2024-03-21 13:57] LABS: Bilirubin,Urine 1+ (Negative)
[2024-03-21 13:58] LABS: Amorphous Sediment,Urine 2+ /lpf; Bacteria,Urine 4+ /lpf; Calcium Oxalate Crystals,Urine 1+ /lpf
--- NOTE | 2024-03-21 14:19 | PC.NURSE ---
Called [facility] per Dr Acosta for this pt to see about getting them to [facility] for possibility they made need hemodialysis. Transfer center advised they would callback as soon as they make contact
[2024-03-21 14:42] LABS: Potassium 4.2 mmoL/L (3.5-5.1)
[2024-03-21 14:45] LABS: Anion Gap 13.2 mEq/L (5-15); Calcium 9.3 mg/dl (8.4-10.2); Carbon Dioxide 26 mmol/L (22.0-30.0); Creatinine Clearance Estimated 20 mL/min (50-200); Estimated Glomerular Filt Rate 31 ml/min (>60); GFR (African American) 37 ML/MIN (>60); Glucose 105 mg/dl (74-100)
[2024-03-21 14:55] LABS: Blood Urea Nitrogen 89 mg/dl (7-17); Chloride 126 mmol/L (98-107); Sodium 161 mmol/L (136-145)
--- NOTE | 2024-03-21 14:56 | PC.NURSE ---
Spoke to Brando with [facility] regarding tx for this pt and another. We asked if we could call another EMS agency to respond for one of them, he asked Asst. Director, who advised him that we could not roll either of them because it is too early. EMS notified of tx's
--- NOTE | 2024-03-21 16:17 | PC.NURSE ---
Attempted to call [facility] to see status of bed assignment, no answer.
[2024-03-21 16:19] LABS: Chloride 122 mmol/L (98-107); Potassium 4.7 mmoL/L (3.5-5.1)
--- NOTE | 2024-03-21 16:20 | PC.NURSE ---
Spoke with dequan Kennedyclerical warehouse worker at [facility] and reports they are working on bed assignment at this time.
[2024-03-21 16:22] LABS: Anion Gap 23.7 mEq/L (5-15); Calcium 10.2 mg/dl (8.4-10.2); Carbon Dioxide 21 mmol/L (22.0-30.0); Creatinine Clearance Estimated 18 mL/min (50-200); Estimated Glomerular Filt Rate 27 ml/min (>60); GFR (African American) 32 ML/MIN (>60); Glucose 202 mg/dl (74-100)
[2024-03-21 16:46] LABS: Troponin I < 0.01 ng/ml (0.00-0.034)
[2024-03-21 16:48] LABS: Reflex Lactic Add Lactic Reflex
[2024-03-21 16:51] LABS: Blood Urea Nitrogen 92 mg/dl (7-17); Sodium 162 mmol/L (136-145)
--- NOTE | 2024-03-21 17:01 | PC.NURSE ---
updated [facility] home of transfer, attempted to call Son next of kin to update, no answer unable to leave voicemail.
--- NOTE | 2024-03-25 16:26 | PC.NURSE ---
[facility],
== END 2024-03-21 17:04 | disposition short-term general hospital (02) ==
PROVIDERS: Emergency Provider Student in an Organized Health Care Education/Training Program
DX: N39.0 Urinary tract infection, site not specified (principal); E87.0 Hyperosmolality and hypernatremia; N17.9 Acute kidney failure, unspecified; S00.93XA Contusion of unspecified part of head, initial encounter; W18.30XA Fall on same level, unspecified, initial encounter; Y93.9 Activity, unspecified; Y92.128 Other place in nursing home as the place of occurrence of the external cause
CPT/HCPCS: 70450; 71045; 72125; 72128; 72131; 72170; 80048; 80053; 81001; 82009; 82803; 83735; 84484; 85025; 87040; 87086; 87088; 87186; 93005; 96360; 96374; 99285; J0696; J7120